=== PATIENT | male | born 1970 | race Caucasian/White ===

== ENCOUNTER 2020-01-26 11:19 | Emergency (ER) | payer MEDICAID, SELFPAY ==
[2020-01-26 11:33] VITALS: BP 137/108; PULSE 80; RESP 18; TEMP 36.4; O2SAT 100; BMI 25.8
--- NOTE | 2020-01-26 12:19 | ED_ITS ---
HPI - Abdominal Pain General: Chief Complaint: Abdominal Pain Stated Complaint: abd pain/bloating Time Seen by Provider: 01/26/20 11:53 History of Present Illness: HPI narrative: Patient is a 49-year-old male who comes to the ED with right upper quadrant abdominal pain nausea and vomiting. Patient has had his appendix removed but no other abdominal surgeries. Patient says symptoms started approximately 2 2 weeks ago. Symptoms were initially more mild and then in the last 4 days the more severe. He rates the abdominal pain an 8 out of 10. He describes it as a sharp pain in the right upper quadrant of the abdomen that radiates to his back. Patient is also had some nausea and vomiting and states for the last couple days he is only been able to drink fluids and eat things such as Jell-O. He says he has had the chills but denies any fever, dysuria, hematuria, blood in the stool, diarrhea, constipation. Associated Symptoms: Reports chills, nausea and vomiting; Denies constipation, diarrhea, dysuria, fever(s), hematochezia and hematuria Review of Systems Const: Reports: chills; Denies: fever(s) or fatigue Eyes: Denies: change in vision or eye discomfort ENMT: Denies: throat pain, odynophagia, nasal discharge or nasal congestion Card: Denies: chest pain, palpitations, edema, swelling of feet/ankles, dyspnea on exertion or orthopnea Resp: Denies: dyspnea, productive cough or non-productive cough GI: Reports: abdominal pain, nausea and vomiting; Denies: diarrhea, constipation or hematochezia : Denies: flank pain, difficulty urinating, dysuria or hematuria Musc: Denies: neck pain, back pain or extremity swelling Skin/Breast: Denies: rash or new lesions Neuro: Denies: headache(s), numbness in extremities or weakness in extremities Physical Exam Const: COMMON NORMALS: patient oriented x3 and alert GENERAL APPEARANCE: cooperative; not comfortable (Uncomfortable due to abdominal pain.) HENMT: COMMON NORMALS: normocephalic HEAD & SCALP: normocephalic MOUTH: moist mucous membranes abnormal (Mild signs of dehydration.) Details: parched THROAT: posterior oropharynx normal and uvula midline Eye: COMMON NORMALS: Equal, round and reactive pupils present PUPIL: Yes Equal, round and reactive pupils present Neck/C-Spine: COMMON NORMALS: supple GENERAL: Yes normal visual inspection Resp: COMMON NORMALS: normal respiratory effort, No retractions, No use of accessory muscles and clear to auscultation bilaterally AUSCULTATION: clear to auscultation bilaterally Cardio: COMMON NORMALS: regular rate, regular rhythm, S1 normal heart sound present, S2 normal heart sound present, No gallops present (Cardio), No clicks present (Cardio), No murmurs present (Cardio) and Peripheral pulses 2+ throughout RATE: regular rate RHYTHM: regular rhythm HEART SOUNDS: S1 normal heart sound present and S2 normal heart sound present PERIPHERAL PULSES: Peripheral pulses 2+ throughout GI: COMMON NORMALS: Soft to palpation and no masses INSPECTION: No abdominal distension AUSCULTATION: Yes Hypoactive bowel sounds present PALPATION: Yes Soft to palpation and Yes Tenderness to palpation present (GI) Details: RUQ (Moderate tenderness with positive Ocampo sign.) : COMMON NORMALS: Yes no CVA tenderness BLADDER/KIDNEY EXAM: Yes no CVA tenderness Back/Pelvis: COMMON NORMALS: no CVA tenderness Extremity: COMMON NORMALS: normal to inspection, capillary refill normal and no pedal edema Neuro: COMMON NORMALS: patient oriented x3 SENSORIUM/ORIENTATION: Yes alert GAIT: Yes Normal gait present Skin: COMMON NORMALS: no rashes or lesions noted GENERAL SKIN EXAM: no rashes or lesions noted and dry skin Course Vital Signs: Vital signs: Vital Signs Temperature 97.6 F 01/26/20 11:33 Pulse Rate 66 01/26/20 15:50 Respiratory Rate 18 01/26/20 15:50 Blood Pressure 144/103 01/26/20 15:50 Pulse Oximetry 92 01/26/20 15:50 MDM - Abdominal Pain MDM Narrative: Medical decision making narrative: Patient is a 49-year-old male who comes to the ED with right upper quadrant abdominal pain nausea and vomiting. Physical exam showed a positive Ocampo sign. Lipase 72, CBC unremarkable, and CMP showed an elevated creatinine level of 1.3. Urinalysis is unremarkable. Ultrasound of the gallbladder showed Moderately contracted gallbladder with no stones identified. Patient was given IV fluids, Zofran and morphine while here in the ED. Patient symptoms greatly improved. I placed order with case management for a referral to general surgery. Patient was diagnosed with biliary colic and discharged with a prescription for Zofran and a written prescription for [place]. He was told to have a clear liquid diet for the next 24 to 48 hours then slowly advance as tolerated. Return to the ED if symptoms worsen. Patient understood and agreed with plan. Lab Data: Attestation: I reviewed the patient's lab results. Labs: Lab Results 01/26/20 01/26/20 01/26/20 Range/Units 12:50 12:50 13:51 WBC 6.8 (4.0-10.0) 10^3/ uL RBC 5.17 (4.1-5.3) 10^6/u L Hgb 15.2 (11.7-16.6) g/dL Hct 46.7 (42.0-52.0) % MCV 90.3 (80-94) fL MCH 29.4 (28.0-34.0) pg MCHC 32.5 (30.0-36.0) g/dL RDW 13.1 (12.1-15.1) % Plt Count 416 H (130-400) 10^3/c mm MPV 9.3 (7.4-10.4) fL Neut % (Auto) 36.7 % Lymph % (Auto) 33.6 % [place] % (Auto) 11.3 % Eos % (Auto) 16.4 % Baso % (Auto) 1.9 % Neut # (Auto) 2.5 (1.8-7.7) 10^3/u L Lymph # (Auto) 2.3 (0.8-4.8) 10^3/u L [place] # (Auto) 0.8 (0.2-0.9) 10^3/u L Eos # (Auto) 1.1 H (0.0-0.8) 10^3/u L Baso # (Auto) 0.1 (0.0-0.1) 10^3/u L Nucleated RBC % (a uto) 0 % Nucleated RBCs # 0.0 /100WBC Sodium 138 (136-145) mmol/L Potassium 3.9 (3.5-5.1) mmol/L Chloride 98 (98-107) mmol/L Carbon Dioxide 28 (22-29) mmol/L Anion Gap 15.9 (5-19) BUN 18 (6-20) mg/dL Creatinine 1.3 H (0.7-1.2) mg/dL GFR Calculation 58.9 L (90-130) mL/min Glucose 97 (65-115) mg/dL Calculated Osmolal ity 282 L (285-295) mOsm/k g Calcium 9.7 (8.5-10.5) mg/dL Total Bilirubin 0.4 (0.15-1.2) mg/dL AST 32 (0-40) U/L ALT 31 (0-41) U/L Alkaline Phosphata se 82 (40-130) IU/L Total Protein 7.7 (6.6-8.7) g/dL Albumin 4.8 (3.5-5.2) g/dL Globulin 2.9 (1.3-4.6) g/dL Lipase 72 H (13-60) U/L Urine Color Yellow (Yellow) Urine Appearance Clear (CLEAR) Urine pH 5 (5-7) Ur Specific Gravit y 1.030 (1.005-1.030) Urine Protein Neg (Negative) Urine Glucose (UA) Norm (Normal) Urine Ketones Negative (Negative) Urine Blood Neg (Negative) Urine Nitrate Negative (Negative) Urine Bilirubin Neg (NEGATIVE) Urine Urobilinogen Norm (Negative) mg/dL Ur Leukocyte Heidi ase Negative (Negative) Urine RBC Rare (0-2) /hpf Urine WBC None (0-5) /hpf Ur Squamous Epith Cells None (0-5) Urine Bacteria Trace (NONE) Urine Mucus 1+ Imaging Data ^: US: Attestation: I personally reviewed and interpreted this imaging study as follows: Radiologist's impression: [place] [id number] Ultrasound Report Signed Patient: Sj Dhillon Unit #: [id number] : 1970 Age/Sex: 49 / M ADM Date: 01/26/20 Loc: ER Room/Bed: Attending Dr: Ordering Provider/Ordering MD: Galindo Restrepo Date of Service: 01/26/20 Procedure(s): US gall bladder 68013 Accession Number(s): [id number] Report Number: [id number] WS: [id number] RIGHT UPPER QUADRANT ULTRASOUND HISTORY: RUQ pain with n/v COMPARISON: None available. Liver: 15.5 cm in length. Liver is normal size. Slight nodularity along the liver surface. No bile duct dilatation. Gallbladder: Moderately contracted gallbladder. No stones are identified. CBD: 0.5 cm Pancreas: Normal size and echogenicity. Right kidney: 10.2 cm in length. Normal echogenicity with no mass or hydronephrosis. Aorta and IVC: Unremarkable. No ascites. US/US gall bladder [id number] IMPRESSION: 1. Moderately contracted gallbladder with no stones identified. 2. Normal size liver. Surface of the liver suggests possibility of early cirrhosis. Dictated By: Maru Quinteros DO Signed By: Maru Quinteros DO Signed Date/Time: 01/26/201338 DD/ 133 Discharge Plan Discharge Patient Disposition: Home, Self-Care Clinical Impression: Biliary colic Condition: Stable Prescriptions: New Zofran 4 mg tablet 4 mg PO Q8H Qty: 20 RF: 0 No Action Tylenol Extra Strength 500 mg Tablet 1,000 mg PO PRN RF: 0 Tagamet HB 200 mg Tablet 200 mg PO DAILY RF: 0 Pepto-Bismol 262 mg Tablet,Chewable 2 tab PO PRN RF: 0 Discharge Orders: Discharge Order (Routine); Ordered 01/26/20 Ordered By: Galindo Restrepo Referrals: Chinmay Chanel FNP [Primary Care Provider] - Discharge Diet: Advance as tolerated and Clear Liquid Patient Instructions: Biliary Colic (ED) Activity Restrictions/Additional Instructions: Follow-up with medical provider as directed. Case management or general surgery clinic should be contacting you in the next several days to schedule an appointment. Remember to continue clear liquid diet for the next 24 to 48 hours and then slowly advance as tolerated. I am sending you home with a prescription for Zofran and hydrocodone for breakout pain. You can also take ibuprofen or Tylenol for pain daily as well. Take medications as prescribed. Drink plenty of fluids and stay hydrated. Return to the ER or your medical provider if condition worsens. Please read and understand discharge instructions. If any questions, please ask. Discharge Date/Time: 01/26/20 15:51 Coding Level of Care Code ED Carrier Operator for González Fwd Exam Comprehensive
[2020-01-26] MEDS: ondansetron 2 mg/ML SDV 2 mL 4 MG IVP (12:42)
[2020-01-26] MEDS: sodium chloride 0.9% 1,000 ML 999 ML IV (12:43)
--- NOTE | 2020-01-26 13:01 | US_ITS ---
WS: [id number] RIGHT UPPER QUADRANT ULTRASOUND HISTORY: RUQ pain with n/v COMPARISON: None available. Liver: 15.5 cm in length. Liver is normal size. Slight nodularity along the liver surface. No bile du ct dilatation. Gallbladder: Moderately contracted gallbladder. No stones are identified. CBD: 0.5 cm Pancreas: Normal size and echogenicity. Right kidney: 10.2 cm in length. Normal echogenicity with no mass or hydronephrosis. Aorta and IVC: Unremarkable. No ascites. US/US gall bladder [id number] IMPRESSION: 1. Moderately contracted gallbladder with no stones identified. 2. Normal size liver. Surface of the liver suggests possibility of early cirrh osis.
[2020-01-26 13:03] LABS: Basophils # 0.1 10^3/uL (0.0-0.1); Basophils % 1.9 %; Eosinophils # 1.1 10^3/uL (0.0-0.8); Eosinophils % 16.4 %; Hematocrit 46.7 % (42.0-52.0); Hemoglobin 15.2 g/dL (11.7-16.6); Lymphocytes # 2.3 10^3/uL (0.8-4.8); Lymphocytes % 33.6 %; Mean Corpuscular HGB Conc 32.5 g/dL (30.0-36.0); Mean Corpuscular Hemoglobin 29.4 pg (28.0-34.0); Mean Corpuscular Volume 90.3 fL (80-94); Mean Platelet Volume 9.3 fL (7.4-10.4); Monocytes # 0.8 10^3/uL (0.2-0.9); Monocytes % 11.3 %; Neutrophils # 2.5 10^3/uL (1.8-7.7); Neutrophils % 36.7 %; Nucleated Red Blood Cells % 0 %; Platelet Count 416 10^3/cmm (130-400); Red Blood Count 5.17 10^6/uL (4.1-5.3); Red Cell Distribution Width 13.1 % (12.1-15.1); White Blood Count 6.8 10^3/uL (4.0-10.0)
[2020-01-26 13:23] LABS: Alanine Aminotransferase 31 U/L (0-41); Albumin Level 4.8 g/dL (3.5-5.2); Alkaline Phosphatase 82 IU/L (40-130); Anion Gap 15.9 (5-19); Aspartate Amino Transferase 32 U/L (0-40); Blood Urea Nitrogen 18 mg/dL (6-20); Calcium 9.7 mg/dL (8.5-10.5); Carbon Dioxide 28 mmol/L (22-29); Chloride 98 mmol/L (98-107); Globulin 2.9 g/dL (1.3-4.6); Glomerular Filtration Rate 58.9 mL/min (90-130); Glucose 97 mg/dL (65-115); Lipase 72 U/L (13-60); Osmolality Calculated 282 mOsm/kg (285-295); Potassium 3.9 mmol/L (3.5-5.1); Sodium 138 mmol/L (136-145); Total Bilirubin 0.4 mg/dL (0.15-1.2); Total Protein 7.7 g/dL (6.6-8.7)
[2020-01-26 13:57] VITALS: RESP 12
[2020-01-26] MEDS: morphine 4 mg/mL SDV 1 mL IVP (13:57)
[2020-01-26 14:02] VITALS: BP 132/98; PULSE 84; O2SAT 100
[2020-01-26 14:06] LABS: Add Urine Culture? No; Bacteria Urine TRACE; Bilirubin Urine Neg (NEGATIVE); Blood Urine Neg (Negative); Glucose Urine UA Norm (Normal); Ketones Urine Negative (Negative); Leukocyte Esterase Urine Negative (Negative); Nitrate Urine Negative (Negative); Protein Urine Neg (Negative); RBC Urine RARE /hpf (0-2); Urine Appearance Clear (CLEAR); Urine Color Yellow (Yellow); Urobilinogen Urine Norm (Negative); pH Urine 5 (5-7)
[2020-01-26 14:07] LABS: Mucus Urine 1+
[2020-01-26 15:50] VITALS: BP 144/103; PULSE 66; RESP 18; O2SAT 92
--- NOTE | 2020-01-29 11:08 | DCPLANNER ---
manager plan had message to schedule a follow up appointment for patient with general surgery. manager plan called [facility], spoke with Sarai, gave clinic patients information. manager plan was told that patients information would be printed and reviewed. Clinic will call patient with appointment information.
--- NOTE | 2020-01-30 09:01 | DCPLANNER ---
Patient has a follow up appointment scheduled for Wednesday, February 02, 2020 at 1:15 with Practicing Dermatologist clinic. Clinic will call patient with appointment information.
--- NOTE | 2020-02-06 11:44 | DCPLANNER ---
Patient did attend follow up appointment scheduled for 02.02.20 with [facility].
== END 2020-01-26 15:51 | disposition home or self-care (01) ==
PROVIDERS: Emergency Provider Physician Assistant; Family Provider Nurse Practitioner Family; PCP Nurse Practitioner Family
DX: K80.50 Calculus of bile duct without cholangitis or cholecystitis without obstruction (principal)
CPT/HCPCS: 12345; 36415; 76705; 80053; 81001; 83690; 85025; 87040; 96361; 96374; 96375; 99283; 99284; J2270; J2405; J7030

== ENCOUNTER 2020-02-01 19:13 | Emergency (ER) | payer MEDICAID, SELFPAY ==
[2020-02-01] VITALS (7 sets, daily range): BP systolic 143–151; BP diastolic 97–109; PULSE 66–75; RESP 14–21; TEMP 36.3; O2SAT 97–100; BMI 25.1
--- NOTE | 2020-02-01 19:38 | XRR_ITS ---
PROCEDURE INFORMATION: Exam: XR Chest, 2 Views Exam date and time: 02/01/2020 8:19 PM Age: 49 years old Clinical indication: Dyspnea TECHNIQUE: Imaging protocol: XR of the chest Views: 2 views. COMPARISON: CR Chest 1 [place] [id number] 03/23/2017 10:02 AM FINDINGS: Lungs: No acute airspace disease. Pleural space: No pleural effusion. Heart/Mediastinum: No cardiomegaly. Bones/joints: Mild degenerative change. XR/XR chest 2V* [id number] IMPRESSION: No acute airspace or pleural disease.
--- NOTE | 2020-02-01 21:44 | CTR_ITS ---
PROCEDURE INFORMATION: Exam: CT Abdomen And Pelvis With Contrast Exam date and time: 02/01/2020 9:57 PM Age: 49 years old Clinical indication: Abdominal pain; Generalized; Prior surgery; Surgery type: Appy; Additional info: Abd pain TECHNIQUE: Imaging protocol: Computed tomography of the abdomen and pelvis with intravenous contrast. Radiation optimization: All CT scans at this facility use at least one of these dose optimization techniques: automated exposure control; mA and/or kV adjustment per patient size (includes targeted exams where dose is matched to clinical indication); or iterative reconstruction. Contrast material: VISI; Contrast volume: 95 ml; Contrast route: INTRAVENOUS (IV); COMPARISON: US gall bladder [id number] 01/26/2020 1:26 PM RADIATION DOSE METRICS: Total DLP (mGy-cm): 842.2 FINDINGS: Lungs: The lung bases are clear. Mediastinal space: Small hiatal hernia. Liver: Unremarkable. Gallbladder and bile ducts: No definite gallbladder abnormality by CT. No biliary tree dilation. Pancreas: Unremarkable. Spleen: Unremarkable. Adrenals: Unremarkable. The was cut the gap Kidneys and ureters: Small right lower pole intrarenal calculus. No hydronephrosis of either kidney. No visible ureteral calculus. Stomach and bowel: Several small bowel loops are fluid-filled and borderline prominent in size, however the overall appearance is not suggestive of significant small bowel obstruction at this time. This appearance could be secondary to some form of gastroenteritis. Please correlate clinically. If there is clinical suspicion for small bowel obstruction, follow-up may be helpful to exclude progression. There are no CT findings to strongly suggest diverticulitis. Appendix: Reportedly, there has been prior appendectomy. Intraperitoneal space: No free air, ascites, or significant bowel distention. Vasculature: No evidence for abdominal aortic aneurysm. Lymph nodes: No significant retroperitoneal adenopathy. Bladder: Unremarkable as visualized. Reproductive: Essentially unremarkable for age. Bones/joints: No significant acute finding. Soft tissues: Small left inguinal region hernia, containing only fat. CT/CT abdomen pelvis w con* [id number] IMPRESSION: 1. Several small bowel loops are fluid-filled and borderline prominent in size, see above discussion. This appearance could be secondary to some form of gastroenteritis. 2. No free air or significant bowel distention. 3. Small right lower pole intrarenal calculus. No hydronephrosis or visible ureteral calculus. 4. Other findings discussed above. Radiation Dose CTDIVOL = (mGy): DLP = 842.2 (mGy-cm)
--- NOTE | 2020-02-01 21:51 | ECG_ITS ---
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 Measurements Intervals [place] Rate: 57 P: 58 MI: 173 QRS: 31 QRSD: 98 T: 41 QT: 460 QTc: 449 Interpretive Statements SINUS BRADYCARDIA Compared to ECG 08/04/2016 18:45:37 Sinus rhythm no longer present Electronically Signed On 02-02-2020 19:04:08 CDT by Alison Dumont M.D. [id number]
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
[2020-02-01 22:13] LABS: Basophils # 0.1 10^3/uL (0.0-0.1); Basophils % 0.7 %; Eosinophils # 0.8 10^3/uL (0.0-0.8); Eosinophils % 8.7 %; Hematocrit 42.5 % (42.0-52.0); Hemoglobin 13.9 g/dL (11.7-16.6); Lymphocytes # 1.5 10^3/uL (0.8-4.8); Lymphocytes % 16.8 %; Mean Corpuscular HGB Conc 32.7 g/dL (30.0-36.0); Mean Corpuscular Hemoglobin 29.5 pg (28.0-34.0); Mean Corpuscular Volume 90.2 fL (80-94); Mean Platelet Volume 9.1 fL (7.4-10.4); Neutrophils # 5.58 10^3/uL (1.8-7.7); Neutrophils % 62.6 %; Nucleated Red Blood Cells % 0 %; Platelet Count 327 10^3/cmm (130-400); Red Blood Count 4.71 10^6/uL (4.1-5.3); Red Cell Distribution Width 12.7 % (12.1-15.1); White Blood Count 8.9 10^3/uL (4.0-10.0)
[2020-02-01 22:38] LABS: Alanine Aminotransferase 34 U/L (0-41); Albumin Level 4.3 g/dL (3.5-5.2); Alkaline Phosphatase 75 IU/L (40-130); Anion Gap 11.2 (5-19); Aspartate Amino Transferase 32 U/L (0-40); Blood Urea Nitrogen 16 mg/dL (6-20); Calcium 9.4 mg/dL (8.5-10.5); Carbon Dioxide 31 mmol/L (22-29); Chloride 98 mmol/L (98-107); Creatine Phosphokinase 153 U/L (39-308); Globulin 2.5 g/dL (1.3-4.6); Glomerular Filtration Rate 71.4 mL/min (90-130); Glucose 98 mg/dL (65-115); Osmolality Calculated 278 mOsm/kg (285-295); Potassium 4.2 mmol/L (3.5-5.1); Sodium 136 mmol/L (136-145); Total Bilirubin 0.3 mg/dL (0.15-1.2); Total Protein 6.8 g/dL (6.6-8.7)
[2020-02-01] MEDS: iodixanol 320 mg/mL 100mL Btl 95 ML IV (22:54)
[2020-02-01] MEDS: ipratropium-albuterol 3 mL Neb INHALATION ×2 (23:00→23:17)
[2020-02-01 23:35] LABS: Troponin(5th) Baseline 12 ng/L (0-15)
[2020-02-01] MEDS: morphine 4 mg/mL SDV 1 mL IVP (23:51)
[2020-02-01] MEDS: ondansetron 2 mg/ML SDV 2 mL 4 MG IVP (23:51)
[2020-02-02 00:31] VITALS: BP 148/73; PULSE 72; RESP 16; O2SAT 96
[2020-02-02 01:18] LABS: Troponin 5 2HR 10.94 ng/L (0-15)
[2020-02-02 01:28] LABS: Troponin 5 2HR Delta -1.06 ABS# (0-10)
== END 2020-02-02 00:32 | disposition home or self-care (01) ==
PROVIDERS: Family Medicine; Emergency Provider Emergency Medicine
DX: R10.84 Generalized abdominal pain (principal); Z86.73 Personal history of transient ischemic attack (TIA), and cerebral infarction without residual deficits; I10 Essential (primary) hypertension; F17.210 Nicotine dependence, cigarettes, uncomplicated
CPT/HCPCS: 12345; 71046; 74177; 80053; 82550; 84484; 85025; 93005; 94640; 96374; 96375; 99282; 99285; J2270; J2405; Q9967

== ENCOUNTER 2020-02-14 06:53 | Outpatient (CLI) | payer MEDICAID, SELFPAY ==
--- NOTE | 2020-02-14 08:00 | NM_ITS ---
WS: [id number] NUCLEAR MEDICINE HIDA SCAN WITH GALLBLADDER EJECTION FRACTION HISTORY: abdominal pain COMPARISON: 01/26/2020 TECHNIQUE: The patient was intravenously injected with 8.1 mCi of TC99m Mebrofenin. Immediate imaging over the right upper quadrant was followed by 5 minute image and additional images for a total of 60 minutes. Normal uptake of radiotracer throughout the liver. Activity identified in the gallbladder at 10 minutes and well distended by 60 minutes. Activity in the proximal small bowel was not identified at 60 minutes. Good washout of the radiotrace r from the liver by 60 minutes. The patient then drank 8 ounces of Ensure Plus. Ejection fraction at 60 minutes was 69%. Normal GB ej ection fraction is 35-75%. Post fatty meal symptoms: None. NM/NM hepatobiliary w phar* [id number] IMPRESSION: 1. Normal HIDA scan. 2. Normal gallbladder ejection fraction.
== END 2020-02-14 06:54 | disposition home or self-care (01) ==
PROVIDERS: Visit Provider Surgery
DX: R10.9 Unspecified abdominal pain (principal)
CPT/HCPCS: 78227; A9537

== ENCOUNTER → 2020-03-05 16:00 | Outpatient (BNVA) | payer MEDICAID, SELFPAY | PROVIDERS: Visit Provider Family Medicine | DX: F32.9 Major depressive disorder, single episode, unspecified (principal); R10.13 Epigastric pain; I10 Essential (primary) hypertension; Z13.6 Encounter for screening for cardiovascular disorders; F33.1 Major depressive disorder, recurrent, moderate; R10.31 Right lower quadrant pain; Z13.220 Encounter for screening for lipoid disorders; R07.81 Pleurodynia | CPT/HCPCS: 80053; 80061; 83690 ==

== ENCOUNTER 2020-03-25 09:20 | Day surgery (SDC) | payer MEDICAID, SELFPAY ==
[2020-03-22 12:47] VITALS: BMI 30.1
[2020-03-25] VITALS (8 sets, daily range): BP systolic 116–139; BP diastolic 72–91; PULSE 53–71; RESP 13–18; TEMP 36.2–36.3; O2SAT 96–100
[2020-03-25] MEDS: sodium chloride 0.9% 1,000 ML 30 ML IV (09:37)
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
--- NOTE | 2020-03-25 10:14 | W.PM.OPSUD ---
Surgery/Procedure H&P Update DATE OF PROCEDURE: March 25, 2020 DATE H&P PERFORMED: 03/19/20 H&P UPDATE INFORMATION: I have reviewed H&P completed within last 30 days, I have examined patient prior to procedure and No changes to prior documentation PREOP DIAGNOSIS: Left inguinal hernia PLANNED PROCEDURE: Operation Date: 03/25/20 10:40 Proposed Procedures p Laparoscopic Inguinal Hernia Repair w/Mesh 25625 K40.90(Left) - Miguel Santoyo MD
[2020-03-25] MEDS: vancomycin 1,000 MG in sodium chloride 0.9% 250 ML 250 MG IV (10:54)
--- NOTE | 2020-03-25 12:42 | SUR.PHASEI ---
1242- ORAL AIRWAY OUT, SIMPLE MASK AT 10LPM. SAT 100%
--- NOTE | 2020-03-25 12:56 | P.OP_ITS ---
Operative Report Date of procedure: March 25, 2020 Pre-op Diagnosis: Left inguinal hernia Post-op Diagnosis: Lipoma of the spermatic cord Indirect left inguinal hernia Procedure Done: Laparoscopic total extraperitoneal repair of left indirect inguinal hernia Excision of lipoma of the spermatic cord Pathology: none sent Surgeon: Miguel Santoyo Anesthesia: MAC Condition: stable Disposition: PACU Procedure: The patient was taken to the operating room. After IV antibiotic was administered, the abdomen was prepped and draped in a sterile manner. Using a 15 blade, a 1.0 cm transverse incision was made infraumbilically on the left side. Subcutaneous tissue was divided using electrocautery and the anterior rectus sheath divided using an 11 blade. The rectus muscle was retracted laterally and the extraperitoneal space identified. A 11 mm port was placed and 12 mm of pneumoperitoneum was created. A 10 mm 30? scope was introduced and the retrorectus space was opened using the camera up to the pubic symphysis and 5 mm ports were placed in the midline, one 2-fingerbreadths above the pubic symphysis and the other midway between these two ports under direct visualization. Blunt dissection was carried out to open up the tissue in the midline and to the pubic symphysis, which was identified. The dissection was then carried laterally where the iliopubic tract was identified. There was no femoral, obturator or direct hernia noted. The inferior epigastric artery was identified and dissection was carried posterior to it and laterally, the space was opened up to the level of the umbilicus superior to the anterior superior iliac spine. I then proceeded to dissect out the spermatic cord and the indirect hernial sac was reduced . A lipoma of the spermatic cord was excised and reduced into the preperitoneal space. Medium Surgimax 3D was rolled and introduced through the 10 mm port and then rolled laterally and apposed well against the abdominal wall to cover the myopectineal orifice completely. 10 Cc of 0.5% Marcaine was infilt rated into the preperitoneal space. The extraperitoneal space was desufflated under direct visualization to ensure no slippage of hernial sac under the mesh. All ports were removed, the anterior rectus fascia at the infraumbilical port closed using figure of eight 0 Vicryl sutures, subcutaneous tissue approximated using 3-0 Vicryl sutures and skin at all three port sites were closed using running subcuticular 4-0 Monocryl sutures and Dermabond. 10 mL of 0.5% Marcaine was infiltrated at the port sites. The patient was stable throughout the procedure.
--- NOTE | 2020-03-25 13:00 | ANE.PACU2 ---
Inpatient post-anesthesia follow up: Airway intact: Yes Vital signs: Temperature 97.2 F Pulse Rate 62 Respiratory Rate 18 Blood Pressure 124/89 Pulse Oximetry 98 Oxygen Delivery Me thod Room Air Oxygen Flow Rate 10 Fraction of Inspir ed Oxygen Hydration adequate: Yes Nausea and vomiting: No Pain level: 2 Mental status: Baseline
== END 2020-03-25 13:25 | disposition home or self-care (01) ==
PROVIDERS: PCP Family Medicine; Visit Provider Surgery
PROC: (CPT 49650; principal; 2020-03-25 10:40)
DX: K40.90 Unilateral inguinal hernia, without obstruction or gangrene, not specified as recurrent (principal); D17.6 Benign lipomatous neoplasm of spermatic cord; J45.909 Unspecified asthma, uncomplicated; I10 Essential (primary) hypertension; F17.210 Nicotine dependence, cigarettes, uncomplicated
CPT/HCPCS: 49650; 12345; J0131; J2370; J2405; J2704; J2710; J3010; J3370; J3490; J7030; J7050

== ENCOUNTER 2020-07-08 06:00 | Outpatient (RCR) | payer MEDICAID, SELFPAY | END 2020-07-25 23:59 | disposition home or self-care (01) | LOC: WPT 06:00 | PROVIDERS: PCP Family Medicine; Referring Provider Family Medicine; Visit Provider Family Medicine | DX: G89.29 Other chronic pain (principal); M54.9 Dorsalgia, unspecified; M54.12 Radiculopathy, cervical region | CPT/HCPCS: 97110; 97161 ==

== ENCOUNTER → 2021-01-20 17:48 | Outpatient (BNVA) | payer MEDICAID, SELFPAY | PROVIDERS: PCP Family Medicine; Visit Provider Family Medicine | DX: M54.12 Radiculopathy, cervical region (principal); I10 Essential (primary) hypertension; R10.13 Epigastric pain; M62.838 Other muscle spasm; J44.9 Chronic obstructive pulmonary disease, unspecified; E78.2 Mixed hyperlipidemia; F32.9 Major depressive disorder, single episode, unspecified | CPT/HCPCS: 80053; 80061; 83735; 85025 ==

== ENCOUNTER 2021-03-04 14:16 | Outpatient (CLI) | payer MEDICAID, SELFPAY ==
--- NOTE | 2021-03-04 14:40 | CT_ITS ---
WS: [id number] CT HEAD NONCONTRAST HISTORY: G44.52 - New daily persistent headache (NDPH) TECHNIQUE: Contiguous axial imaging performed through the brain in 2.5 mm imaging. Bone and soft tiss ue windows. All CT scans at [facility] use at least one of these dose optimization techniq ues: automated exposure control; mA and/or kV adjustment per patient size (includes targeted exams wh ere dose is matched to clinical indication); or iterative reconstruction. DLP: 992.04 mGycm COMPARISON: 08/04/2016 No acute intracranial hemorrhage, midline shift or mass effect. No atrophy or prior infarcts or herniation. Ventricles: Normal size with no hydrocephalus. Cerebellar tonsils are low-lying with no Chiari malformation. Paranasal sinuses: Mild mucoperiosteal thickening. No air-fluid levels. Mastoid air cells: Sclerotic changes in the RIGHT mastoid air cells from prior mastoiditis. No interv al change since 08/04/2016. Calvarium and scalp: Skull is intact with no soft tissue edema or swelling. CT/CT head wo con* [id number] IMPRESSION: 1. No acute intracranial hemorrhage or edema. 2. Mild ectopia cerebellar tonsils as has been described before. 3. No mass effect or hydrocephalus.
== END 2021-03-04 14:17 | disposition home or self-care (01) ==
PROVIDERS: PCP Family Medicine; Visit Provider Family Medicine
DX: H53.9 Unspecified visual disturbance (principal); G44.52 New daily persistent headache (NDPH); Q04.8 Other specified congenital malformations of brain
CPT/HCPCS: 70450

== ENCOUNTER → 2021-07-10 10:34 | Outpatient (BNVA) | payer MEDICAID, SELFPAY | PROVIDERS: PCP Family Medicine; Visit Provider Family Medicine | DX: I10 Essential (primary) hypertension (principal); S41.112A Laceration without foreign body of left upper arm, initial encounter; M54.12 Radiculopathy, cervical region; Z22.322 Carrier or suspected carrier of Methicillin resistant Staphylococcus aureus; E78.2 Mixed hyperlipidemia; F32.9 Major depressive disorder, single episode, unspecified; R10.13 Epigastric pain; N20.0 Calculus of kidney; L02.415 Cutaneous abscess of right lower limb; B37.2 Candidiasis of skin and nail; K29.30 Chronic superficial gastritis without bleeding; S41.112D Laceration without foreign body of left upper arm, subsequent encounter; Z91.19 Patient's noncompliance with other medical treatment and regimen; X58.XXXA Exposure to other specified factors, initial encounter | CPT/HCPCS: 80053; 80061; 85025 ==

== ENCOUNTER 2021-09-20 17:23 | Emergency (ER) | payer MEDICAID, SELFPAY ==
[2021-09-20 17:29] VITALS: BP 153/101; PULSE 86; RESP 16; TEMP 36.5; O2SAT 98; BMI 28.7
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
[2021-09-20] MEDS: tetracaine 0.5% Op Soln 4 mL Btl 1 DROP EYE-RIGHT (18:01)
== END 2021-09-20 18:15 | disposition home or self-care (01) ==
PROVIDERS: Emergency Provider Nurse Practitioner Family; PCP Family Medicine
DX: T15.91XA Foreign body on external eye, part unspecified, right eye, initial encounter (principal); Z86.73 Personal history of transient ischemic attack (TIA), and cerebral infarction without residual deficits; E78.2 Mixed hyperlipidemia; I10 Essential (primary) hypertension; F17.220 Nicotine dependence, chewing tobacco, uncomplicated; W22.8XXA Striking against or struck by other objects, initial encounter
CPT/HCPCS: 99282

== ENCOUNTER 2022-06-26 16:52 | Emergency (ER) | payer MEDICAID, SELFPAY ==
[2022-06-26 16:58] VITALS: BP 113/65; PULSE 72; RESP 16; TEMP 36.4; O2SAT 97; BMI 28.8
--- NOTE | 2022-06-26 17:27 | XRR_ITS ---
PROCEDURE INFORMATION: Exam: XR Chest Exam date and time: 06/26/2022 5:32 PM Age: 52 years old Clinical indication: Cough and fever; Smoker's cough; Additional info: Cough, fever TECHNIQUE: Imaging protocol: Radiologic exam of the chest. Views: 2 views. COMPARISON: CR XR chest 2V* [id number] 02/01/2020 8:15 PM FINDINGS: Lungs: Unremarkable. No consolidation. Pleural spaces: Unremarkable. No pleural effusion. No pneumothorax. Heart/Mediastinum: Unremarkable. No cardiomegaly. Bones/joints: Unremarkable. XR/XR chest 2V* [id number] IMPRESSION: No acute findings.
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
[2022-06-26 18:30] VITALS: PULSE 72; RESP 16; O2SAT 98
[2022-06-26] MEDS: ipratropium-albuterol 3 mL Neb INHALATION (18:30)
[2022-06-26 18:33] VITALS: BP 115/75; PULSE 71; PULSE 78; RESP 18; O2SAT 95
[2022-06-26 18:39] LABS: Basophils % 0.2 %; Hematocrit 42.2 % (42.0-52.0); Hemoglobin 13.4 g/dL (11.7-16.6); Lymphocytes # 0.7 10^3/uL (0.8-4.8); Lymphocytes % 15.5 %; Mean Corpuscular HGB Conc 31.8 g/dL (30.0-36.0); Mean Corpuscular Volume 91.3 fl (80-94); Mean Platelet Volume 9.5 fL (7.4-10.4); Monocytes # 0.2 10^3/uL (0.2-0.9); Monocytes % 5.2 %; Neutrophils # 3.36 10^3/uL (1.8-7.7); Neutrophils % 78.6 %; Nucleated Red Blood Cells % 0 %; Platelet Count 297 10^3/cmm (130-400); Red Blood Count 4.62 10^6/uL (4.1-5.3); Red Cell Distribution Width 13.2 % (12.1-15.1); White Blood Count 4.3 10^3/uL (4.0-10.0)
[2022-06-26 19:01] LABS: Alanine Aminotransferase 106 U/L (0-41); Albumin Level 3.5 g/dL (3.5-5.2); Alkaline Phosphatase 119 U/L (40-130); Anion Gap 13.8 (5-19); Aspartate Amino Transferase 77 U/L (0-40); Blood Urea Nitrogen 12 mg/dL (6-20); Calcium 8.7 mg/dL (8.5-10.5); Carbon Dioxide 30 mmol/L (22-29); Chloride 102 mmol/L (98-107); Globulin 3.2 g/dL (1.3-4.6); Glomerular Filtration Rate 78.8 mL/min (90-130); Glucose 119 mg/dL (65-115); Osmolality Calculated 293 mOsm/kg (285-295); Potassium 4.8 mmol/L (3.5-5.1); Sodium 141 mmol/L (136-145); Total Bilirubin 0.2 mg/dL (0.15-1.2); Total Protein 6.7 g/dL (6.6-8.7)
[2022-06-26 19:04] LABS: Influenza A by IFA Positive (Negative); Influenza B by IFA Negative (Negative)
[2022-06-26 19:20] LABS: SARS Covid-2 Antigen negative (Negative)
[2022-06-26] MEDS: sodium chloride 0.9% 1,000 ML 999 ML IV (19:29)
[2022-06-26 20:27] VITALS: BP 125/86; PULSE 75; RESP 20; O2SAT 99
== END 2022-06-26 20:21 | disposition home or self-care (01) ==
PROVIDERS: Nurse Practitioner Family; Emergency Provider Emergency Medicine; PCP Family Medicine
DX: J11.1 Influenza due to unidentified influenza virus with other respiratory manifestations (principal); J40 Bronchitis, not specified as acute or chronic; Z20.822 Contact with and (suspected) exposure to COVID-19; Z86.73 Personal history of transient ischemic attack (TIA), and cerebral infarction without residual deficits; E78.2 Mixed hyperlipidemia; I10 Essential (primary) hypertension; F17.220 Nicotine dependence, chewing tobacco, uncomplicated
CPT/HCPCS: 71046; 80053; 85025; 87426; 87804; 94640; 96361; 96374; 99284; J2930; J7030

== ENCOUNTER 2022-11-10 14:27 | Emergency (ER) | payer MEDICAID, SELFPAY ==
[2022-11-10 14:34] VITALS: BP 165/91; PULSE 85; RESP 16; TEMP 36.4; O2SAT 99
--- NOTE | 2022-11-10 15:20 | XR_ITS ---
WS: [id number] Right forearm, AP and lateral views, 11/10/2022 Clinical Data: forearm pain Comparison: None. Findings: No fractures or dislocations are seen. There is a 0.7 cm radiopaque foreign body in the subcutaneous soft tissue in the medial aspect of the junction of the proximal and middle thirds of the forearm. Th e visualized right wrist and elbow show no obvious abnormalities. There are clips in the medial aspect of the subcutaneous tissue of the distal right arm XR/XR forearm RT 2V [id number] Impression: Probable foreign body in medial aspect of proximal third of right forearm.
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
[2022-11-10] MEDS: ondansetron 4 MG Tablet PO (15:33)
[2022-11-10] MEDS: HYDROcodone-acetaminophen 7.5-325 mg Tablet 1 TAB PO (15:33)
--- NOTE | 2022-11-11 08:40 | DCPLANNER ---
Addendum entered by Nga Meza 11/25/22 11:18: Patient had a follow up appointment scheduled with ortho - patient did attend appointment. Addendum entered by Nga Meza 11/20/22 10:15: Patient has a follow up appointment scheduled for Wednesday, November 23, 2022 at 9:[address] Restrepo at ortho. Addendum entered by Nga Meza 11/13/22 07:50: dental manager received the following message from the ortho clinic regarding follow up appointment: Attempted to contact patient - was unable to get ahold of him, I called twice and both times I got a message saying This number is not available. I will be mailing him a letter. When patient calls back he is to be scheduled on November [address] Restrepo! Original Note: dental manager had message to schedule a follow up appointment for patient with ortho. dental manager sent patients information to the front office staff at ortho. Patients information will be printed and reviewed. Clinic will call patient with appointment information.
== END 2022-11-10 16:05 | disposition home or self-care (01) ==
PROVIDERS: Emergency Provider Physician Assistant; PCP Family Medicine
DX: M79.5 Residual foreign body in soft tissue (principal); Z86.73 Personal history of transient ischemic attack (TIA), and cerebral infarction without residual deficits; E78.2 Mixed hyperlipidemia; I10 Essential (primary) hypertension; F17.220 Nicotine dependence, chewing tobacco, uncomplicated
CPT/HCPCS: 73090; 99283; Q0162

== ENCOUNTER → 2022-11-23 09:14 | Outpatient (BNVA) | payer MEDICAID, SELFPAY | PROVIDERS: PCP Family Medicine; Referring Provider Physician Assistant; Visit Provider Student in an Organized Health Care Education/Training Program | DX: M79.631 Pain in right forearm (principal); M79.5 Residual foreign body in soft tissue | CPT/HCPCS: 73090; 99204 ==

== ENCOUNTER 2022-12-02 05:42 | Day surgery (SDC) | payer MEDICAID, SELFPAY ==
[2022-12-01 12:19] VITALS: BMI 26.6
[2022-12-02 06:09] VITALS: BP 141/100; PULSE 93; RESP 18; TEMP 37; O2SAT 100
[2022-12-02] MEDS: sodium chloride 0.9% 1,000 ML 30 ML IV (06:31)
[2022-12-02] MEDS: ketorolac 30 mg/mL INJ IVP (06:33)
[2022-12-02] MEDS: acetaminophen 1,000 MG/100 ML PIGGYBACK 400 MG IV (06:33)
[2022-12-02 06:47] LABS: Blood Urea Nitrogen 28 mg/dL (6-20); Calcium 9.3 mg/dL (8.5-10.5); Carbon Dioxide 27 mmol/L (22-29); Chloride 102 mmol/L (98-107); Glomerular Filtration Rate 58.2 mL/min (90-130); Glucose 94 mg/dL (65-115); Osmolality Calculated 295 mOsm/kg (285-295); Sodium 140 mmol/L (136-145)
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
[2022-12-02 06:50] LABS: Anion Gap 15.4 (5-19); Potassium 4.4 mmol/L (3.5-5.1)
--- NOTE | 2022-12-02 06:58 | W.PM.OPSUD ---
Surgery/Procedure H&P Update DATE OF PROCEDURE: December 02, 2022 DATE H&P PERFORMED: 11/23/22 CHANGES TO PREVIOUS DOCUMENTATION: None. No changes from office visit. PREOP DIAGNOSIS: Right forearm foreign bodies PRIMARY INDICATION FOR PROCEDURE: Right forearm foreign bodies PLANNED PROCEDURE: Operation Date: 12/02/22 07:00 Proposed Procedures p Right forearm foreign bodies removal:[id number], S50.?851A(Right) - Cj Restrepo DO
[2022-12-02] MEDS: clindamycin 600 MG/50 ML PREMIX 100 MG IV (07:01)
[2022-12-02] MEDS: lidocaine 1% INJ 10 mL (per mL) INJECTION (07:34)
[2022-12-02 07:58] VITALS: BP 143/76; PULSE 77; RESP 14; TEMP 36.1; O2SAT 95
[2022-12-02 08:00] VITALS: BP 132/81; PULSE 85; RESP 16; O2SAT 98
[2022-12-02 08:05] VITALS: BP 163/96; PULSE 83; RESP 15; O2SAT 99
[2022-12-02 08:11] VITALS: BP 162/74; PULSE 81; RESP 17; TEMP 36.4; O2SAT 99
[2022-12-02 08:40] VITALS: BP 138/98; PULSE 72; RESP 18; TEMP 36.6; O2SAT 100
--- NOTE | 2022-12-02 09:27 | PM.OP2 ---
Brief Operative Note Date of procedure: 12/02/22 Pre-op diagnosis: Right wrist foreign body, right forearm foreign body Post-op diagnosis: same Procedure Done: Right wrist foreign body removal Right forearm foreign body removal Surgeon: Cj Restrepo Estimated blood loss (mL): 4 Complications: None Post-op Plan: Patient taken to PACU in stable condition recovering well. Patient receive appropriate discharge instructions as well as pain medication postoperatively. We will follow-up with me in the office in 2 weeks. Condition: stable Disposition: same day Coding Level of Care Code Acute Code for González Flores
--- NOTE | 2022-12-02 09:27 | PM.PACU ---
PACU note Narrative: Patient taken to PACU in stable condition recovering well. Patient dressings on in place clean dry and intact. Patient able to wiggle fingers sensation intact light touch distally fingertips warm well-perfused brisk cap refill less than 2 seconds Exam: awake Disposition: discharged
--- NOTE | 2022-12-02 09:27 | PM.OP ---
Operative Report Date of procedure: December 02, 2022 Pre-op diagnosis: Preop Diagnosis Right wrist and forearm foreign bodies Post-op diagnosis: same Procedure done: Right wrist foreign bodies removal(glass) Right forearm foreign body removal (glass) Specimens removed/disposition: Shards of glass removed from both the wrist and forearm to the right upper extremity Surgeon: Cj Restrepo DO Estimated blood loss (mL): 4 17 minutes IV fluids: See anesthesia record Complications: None Findings: See operative report narrative Condition: stable Disposition: same day Brief History: True presents to my office outpatient setting findings consistent with right wrist and forearm foreign bodies x-ray these were evident. Patient had a injury with forearm sustaining multiple lacerations with glass shards entering all were tried to be cleaned out upon initial presentation however every so often has shards of glass that worked their way to the subcutaneous area and has had to have these removed. He has a focal and palpable foreign body on the volar wrist as well as on the volar forearm. We talked about treatment options versus nonoperative and operative intervention. This point time the bothering him and causing significant pain with his daily activities at this point time would like to pursue surgical intervention to have the right wrist and forearm foreign bodies removed. He understands risk benefits complication alternatives to surgery and agrees to proceed with surgical intervention all questions answered. Procedure: Patient seen evaluated preoperative holding area. Consent was reviewed and signed with patient. Correct extremity marked. Palpable foreign body marked on the volar wrist as well as the proximal volar forearm. Patient seen evaluate by anesthesia once cleared for surgery patient was taken back to the operative suite. Patient was then transported on the OR table placed in supine position all bony prominences well-padded patient was appropriate secured to the bed. Armboard was applied to the right upper arm. Patient underwent anesthesia per the anesthesia department once appropriately anesthetized patient had a nonsterile tourniquet applied to the right upper arm. Patient then right upper extremities prepped and draped in sterile orthopedic fashion. Final timeout performed. Patient received appropriate preoperative antibiotics. Esmarch tourniquet was used exsanguinate the right upper extremity and tourniquet was insufflated 250 mmHg. A standard longitudinal incision was made over the volar wrist on the ulnar aspect centering over the foreign body that subcutaneously noted. Sharp scalpel was made only through skin and then switched to Littler dissection scissors and spread longitudinally and created full-thickness skin flaps. Came right down on top of the fascia and in this area I identified scar tissue with multiple small fragments of glass shards these were removed atraumatically with pickups. At this point time through palpation and mini C arm confirmed all of the volar wrist fragments no foreign bodies were removed and then I thoroughly irrigated the wound bed debrided this of any devitalized tissue or scar tissue care was made to protect neurovascular structures. This point time this was thoroughly irrigated and a wet sponge was placed into this wound. Next I then turned my attention towards the proximal forearm foreign body. This had a palpable cystlike nature subcutaneously. Straight longitudinal incision was made centering over the cystlike palpable foreign body on the proximal volar forearm. Sharp scalpel incision was made through skin and subcutaneous tissue. Full-thickness skin flaps with Littler dissection scissors spreading longitudinally I encountered the cystlike mass that was surrounding the foreign body. This was dissected out to its entirety and found to be on top of the forearm fascia this was dissected out with bipolar electrocautery and dissection scissors. I then remove the cyst and once this was open I identified the glass shard which was subsequently removed. All of the cyst was excised from the subcutaneous area atraumatically. I then thoroughly irrigated the wound bed. There is no involvement of any neurovascular structures. I then subsequently irrigated the wound bed. Tourniquet was deflated. Hemostasis was satisfactory with bipolar electrocautery. Mini C arm confirmed complete removal of these foreign bodies. I then closed the skin with interrupted nylon sutures both the forearm and the wrist incisions. These were then dressed with Xeroform 4 x 4's ABD Curlex and an Teddy wrap with his bulky soft dressing. Patient was then awakened from anesthesia and taken to PACU in stable condition. Disposition: Patient taken to PACU in stable condition recovering well. Will receive appropriate discharge instructions as well as pain medication postoperatively. Plan will be for patient to follow-up in orthopedic office in 2 weeks. Patient understands agrees with current plan. All questions answered.
--- NOTE | 2022-12-02 15:29 | ANE.PACU2 ---
Inpatient post-anesthesia follow up: Airway intact: Yes Vital signs: Temperature 97.9 F Pulse Rate 72 Respiratory Rate 18 Blood Pressure 138/98 Pulse Oximetry 100 Oxygen Delivery Me thod Room Air Oxygen Flow Rate Fraction of Inspir ed Oxygen Hydration adequate: Yes Nausea and vomiting: No Pain level: 2 Mental status: Baseline
== END 2022-12-02 08:54 | disposition home or self-care (01) ==
PROVIDERS: Anesthesiology; PCP Family Medicine; Visit Provider Student in an Organized Health Care Education/Training Program
PROC: (CPT 10121; principal; 2022-12-02 07:00)
DX: M79.5 Residual foreign body in soft tissue (principal); J44.9 Chronic obstructive pulmonary disease, unspecified; I10 Essential (primary) hypertension; K21.9 Gastro-esophageal reflux disease without esophagitis; Z86.73 Personal history of transient ischemic attack (TIA), and cerebral infarction without residual deficits; E78.2 Mixed hyperlipidemia; F17.290 Nicotine dependence, other tobacco product, uncomplicated
CPT/HCPCS: 10121 ×2; 36415; 80048; J0131; J1885; J2704; J3010; J3490; J7030

== ENCOUNTER → 2022-12-17 14:55 | Outpatient (BNVA) | payer MEDICAID, SELFPAY | PROVIDERS: PCP Family Medicine; Visit Provider Nurse Practitioner Family | DX: Z98.890 Other specified postprocedural states (principal) | CPT/HCPCS: 99024 ==

== ENCOUNTER → 2023-03-24 09:49 | Outpatient (BNVA) | payer MEDICAID, SELFPAY | PROVIDERS: PCP Family Medicine; Visit Provider Family Medicine | DX: Z12.5 Encounter for screening for malignant neoplasm of prostate (principal); N40.1 Benign prostatic hyperplasia with lower urinary tract symptoms; R39.11 Hesitancy of micturition; E78.2 Mixed hyperlipidemia; I10 Essential (primary) hypertension | CPT/HCPCS: 73030; 80053; 80061; G0103 ==

== ENCOUNTER → 2023-05-21 09:17 | Outpatient (BNVA) | payer MEDICAID, SELFPAY | PROVIDERS: PCP Family Medicine; Referring Provider Family Medicine; Visit Provider Family Medicine | DX: M54.12 Radiculopathy, cervical region (principal); M47.892 Other spondylosis, cervical region | CPT/HCPCS: 72040 ==

== ENCOUNTER → 2023-05-26 14:24 | Outpatient (BNVA) | payer MEDICAID, SELFPAY | PROVIDERS: PCP Family Medicine; Visit Provider Family Medicine | DX: J06.9 Acute upper respiratory infection, unspecified (principal); J98.8 Other specified respiratory disorders; B97.89 Other viral agents as the cause of diseases classified elsewhere | CPT/HCPCS: 87400; 87426 ==

== ENCOUNTER 2023-06-09 12:11 | Outpatient (CLI) | payer MEDICAID, SELFPAY | END 2023-06-09 12:12 | LOC: SPT 12:12 | PROVIDERS: PCP Family Medicine; Visit Provider Anesthesiology Pain Medicine | DX: M54.12 Radiculopathy, cervical region (principal); M43.12 Spondylolisthesis, cervical region; M48.02 Spinal stenosis, cervical region; R93.7 Abnormal findings on diagnostic imaging of other parts of musculoskeletal system | CPT/HCPCS: 97760; 99205; L0172 ==

== ENCOUNTER 2023-06-09 14:53 | Inpatient (IN) | payer MEDICAID, SELFPAY ==
--- NOTE | 2023-06-09 16:14 | MRR_ITS ---
PROCEDURE INFORMATION: Exam: MR Cervical Spine Without Contrast Exam date and time: 06/09/2023 5:07 PM Age: 52 years old Clinical indication: Pain; Cervicalgia; Additional info: Cervical myelopathy, needs to be done urgently TECHNIQUE: Imaging protocol: Magnetic resonance imaging of the cervical spine without contrast. COMPARISON: CR XR cervical spine 3V* [id number] 05/21/2023 9:28 AM FINDINGS: Limitations: The study is motion degraded. Bones/joints: There is straightening of the cervical spine with kyphosis centered at the C4-C5 level similar to the comparison x-ray. Minimal anterolisthesis of C3 on C4, and stepwise retrolisthesis of C4 on C5 and C5 on C6 is also present. No suspicious marrow signal abnormality is present. Spinal cord: No definite spinal cord signal abnormality seen. C2-C3: C2-C3 minimal right-sided dorsal endplate osteophyte is seen without stenosis of the spinal canal. The right neural foramina is mildly narrowed. C3-C4: C3-C4 minimal diffuse disc bulging and endplate osteophyte is seen with mild stenosis of the spinal canal. There is severe left and mild right neural foraminal narrowing due to osteophyte present. C4-C5: C4-C5 diffuse disc bulging and endplate osteophyte is seen with mild stenosis of the spinal canal. There is severe aqcqg-iirfofe-vdsv-left neural foraminal stenosis present. Asymmetric left facet edema which is likely degenerative. C5-C6: C5-C6 diffuse disc bulging and endplate osteophyte is seen with mild stenosis of the spinal canal. The neural foramina are severely narrowed on the [id number]-wbaqhth-ltwt-left side. C6-C7: C6-C7 minimal diffuse disc bulging and endplate osteophyte is seen without stenosis of the spinal canal. There is severe narrowing of both neural foramen hvofo-kibygkm-aujh-left. C7-T1: C7-T1 minimal diffuse disc bulging and endplate osteophyte is seen without stenosis of the spinal canal. There is severe left and moderate right neural foraminal narrowing present. Soft tissues: Unremarkable. Vasculature: Expected flow voids in the vertebral arteries. MR/MR cervical spin wo con* [id number] IMPRESSION: 1. No acute findings. 2. Degenerative changes with kyphosis of the cervical spine, as described. Mild spinal canal stenosis present C3-C6. Multilevel severe neural foraminal narrowing.
[2023-06-09 16:39] VITALS: BP 146/93; PULSE 71; RESP 16; TEMP 36.6; O2SAT 99
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
[2023-06-09 18:04] VITALS: PULSE 71; RESP 16; O2SAT 97
[2023-06-09] MEDS: HYDROcodone-acetaminophen 7.5-325 mg Tablet 1 TAB PO ×2 (18:08→23:55)
[2023-06-09 18:10] VITALS: BMI 28.8
[2023-06-09 19:51] VITALS: O2SAT 96
[2023-06-09 19:58] VITALS: BP 154/93; PULSE 82; RESP 17; O2SAT 96
--- NOTE | 2023-06-09 20:13 | PC.NURSE ---
Patient c/o pain stating that the Hydrocodone didn't help. Dr. Fishman notified and ordered Morphine 2 mg q1 hour PRN.
[2023-06-09 20:38] VITALS: RESP 16
[2023-06-09] MEDS: morphine 4 mg/mL SDV 1 mL 2 MG IVP (20:38)
[2023-06-09 21:37] LABS: Anion Gap 13.2 (5-19); Blood Urea Nitrogen 21 mg/dL (6-20); Calcium 8.6 mg/dL (8.5-10.5); Carbon Dioxide 27 mmol/L (22-29); Chloride 102 mmol/L (98-107); Glomerular Filtration Rate 70.6 mL/min (90-130); Glucose 117 mg/dL (65-115); Osmolality Calculated 290 mOsm/kg (285-295); Potassium 4.2 mmol/L (3.5-5.1); Sodium 138 mmol/L (136-145)
[2023-06-09 21:41] LABS: Basophils # 0.1 10^3/uL (0.0-0.1); Eosinophils # 0.5 10^3/uL (0.0-0.8); Hematocrit 36.9 % (37-53); Lymphocytes # 1.3 10^3/uL (0.8-4.8); Lymphocytes % 25.2 %; Mean Corpuscular HGB Conc 32.2 g/dL (30-55); Mean Corpuscular Hemoglobin 29.2 pg (27-33); Mean Corpuscular Volume 90.7 fl (82-101); Mean Platelet Volume 8.9 fL (7.4-10.4); Monocytes # 0.7 10^3/uL (0.2-0.9); Monocytes % 13.9 %; Neutrophils # 2.58 10^3/uL (1.8-7.7); Neutrophils % 49.7 %; Nucleated Red Blood Cells % 0 %; Platelet Count 387 10^3/cmm (157-399); Red Blood Count 4.07 10^6/uL (3.85-5.65); Red Cell Distribution Width 13.2 % (12.1-15.1); White Blood Count 5.19 10^3/uL (3.29-11.43)
[2023-06-09 23:20] VITALS: BP 151/92; PULSE 79; RESP 18; TEMP 36.6; O2SAT 96
[2023-06-10] VITALS (8 sets, daily range): BP systolic 128–157; BP diastolic 77–89; PULSE 67–79; RESP 15–18; TEMP 36.4–36.7; O2SAT 96–99
--- NOTE | 2023-06-10 00:34 | PC.NURSE ---
Upon shift report, patient did not have neck brace on. Per report from day shift nurse, patient is refusing to wear it.
[2023-06-10] MEDS: HYDROcodone-acetaminophen 7.5-325 mg Tablet 1 TAB PO ×2 (06:04→17:23)
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
--- NOTE | 2023-06-10 07:52 | PC.PHAR ---
PT STATES HAS NO IDEA WHAT MEDS HE TAKES BUT FILLS AT [facility]. WILL CALL AT 8:30 WHEN THEY OPEN, FOR MED LIST VERIFICATION.
--- NOTE | 2023-06-10 09:56 | PC.CHAP ---
Pastoral Care Encounter/Spiritual Assessment Type of Contact [] Declined electronics engineering manager visit [] Patient/Family/Request visit [] Outpatient visit [] Follow-up visit [] Physician referral [] Code/Alert [x] Routine visit [] Staff referral [] Actively dying [] Patient sleeping [] Family support [] [] Out of room [] Palliative care [] [x] Receiving care in room [] Pre-surgical visit [] Trauma [] Long length of stay [] ICU visit [] Other: Relational/Emotional Strength [x] Patient feels connected with others/family/visitors/staff [] Distress [] Loneliness/isolation [] Abandonment Spirituality of Patient [x] Person of Aimee [] Attends Adventism of their Aimee [x] Believes in Prayer [] Reads Bible or Buddhism materials [] There are Spiritual issues to be addressed Ship'S Officer Interventions [x] Prayer [x] Active listening [x] Non-anxious presence [x] Spiritual/emotional support [] Crisis/trauma care [x] Spiritual counseling [] Bereavement support [] Provided bereavement packet [] Provided Bible/devotional materials [] Provided toy/stuffed animal, coloring book to patient or family member [] Provided Communion [] Anointing/[place] [] Salvation [x] Completed spiritual assessment [] Other: Impact on Illness or Injury [] Angry [] Fearful [] Anxious [] Often cries [] Exhaustion [] Unable to work [] Unable to attend uatsdin [] Unable to walk/stand [] Unable to read [] Unable to drive [] Unable to eat/drink [] Unable to sleep [] Unable to be with family [] Patient intubated [] Other: Summary well have surgery on neck on [place] in pain Time spent with patient 10 mins
[2023-06-10] MEDS: morphine 4 mg/mL SDV 1 mL 2 MG IVP ×2 (10:11→20:50)
[2023-06-10] MEDS: atorvastatin 40 mg Tablet PO (18:39)
[2023-06-10] MEDS: duloxetine 20 mg Capsule PO (18:39)
[2023-06-10] MEDS: clotrimazole 1% cream 30 gm 1 APPLIC TOPICAL (18:40)
[2023-06-10] MEDS: baclofen 10 mg Tablet 20 MG PO (20:50)
[2023-06-10] MEDS: pregabalin 100 mg Capsule PO (20:50)
[2023-06-11] VITALS (12 sets, daily range): BP systolic 123–152; BP diastolic 61–98; PULSE 68–78; RESP 15–18; TEMP 36.5–36.9; O2SAT 93–98
[2023-06-11] MEDS: HYDROcodone-acetaminophen 7.5-325 mg Tablet 1 TAB PO ×2 (06:33→15:09)
[2023-06-11] MEDS: baclofen 10 mg Tablet 20 MG PO ×3 (08:55→20:28)
[2023-06-11] MEDS: clotrimazole 1% cream 30 gm 1 APPLIC TOPICAL ×2 (08:55→17:28)
[2023-06-11] MEDS: metoprolol succinate ER (24 HR) 25 mg Tablet PO (08:55)
[2023-06-11] MEDS: pregabalin 100 mg Capsule PO ×3 (08:55→20:28)
[2023-06-11] MEDS: pantoprazole DR 40 mg Tablet PO (08:55)
[2023-06-11] MEDS: duloxetine 20 mg Capsule PO ×2 (08:55→17:28)
[2023-06-11] MEDS: tamsulosin 0.4 mg Capsule PO (08:55)
[2023-06-11] MEDS: morphine 4 mg/mL SDV 1 mL 2 MG IVP ×2 (08:56→17:29)
[2023-06-11] MEDS: albuterol 2.5 mg/3 mL Neb INHALATION (09:03)
[2023-06-11] MEDS: vancomycin 1,000 MG in sodium chloride 0.9% 250 ML 250 MG IV (11:46)
[2023-06-11] MEDS: atorvastatin 40 mg Tablet PO (17:28)
[2023-06-12] VITALS (60 sets, daily range): BP systolic 105–148; BP diastolic 61–92; PULSE 62–102; RESP 14–22; TEMP 36.4–37.3; O2SAT 94–100
[2023-06-12] MEDS: HYDROcodone-acetaminophen 7.5-325 mg Tablet 1 TAB PO (00:11)
[2023-06-12] MEDS: morphine 4 mg/mL SDV 1 mL 2 MG IVP (03:06)
[2023-06-12] MEDS: albuterol 2.5 mg/3 mL Neb INHALATION ×2 (03:12→07:48)
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
--- NOTE | 2023-06-12 07:31 | W.PM.OPSUD ---
Surgery/Procedure H&P Update DATE OF PROCEDURE: June 12, 2023 DATE H&P PERFORMED: 06/09/23 PREOP DIAGNOSIS: Cervical Spondylosis w/myelopathy PLANNED PROCEDURE: Operation Date: 06/12/23 08:00 Proposed Procedures p ACDF C3/4, C4/5, C5/6, C6/7(Not Applicable) - Damian Fishman DO
[2023-06-12] MEDS: vancomycin 1,000 MG in sodium chloride 0.9% 250 ML 250 MG IV ×2 (08:06→18:02)
[2023-06-12] MEDS: lidocaine-epi 1% 20 mL INJ INJECTION (09:12)
--- NOTE | 2023-06-12 10:52 | XRR_ITS ---
PROCEDURE INFORMATION: Exam: XR Cervical Spine Exam date and time: 06/12/2023 4:09 PM Age: 52 years old Clinical indication: Patient HX: Post op c4-c7 fusion TECHNIQUE: Imaging protocol: Radiologic exam of the cervical spine. Views: 2 or 3 views. COMPARISON: CT cervical spin wo con* [id number] 06/12/2023 2:03 PM FINDINGS: Bones/joints: C6 and see below obscured on lateral images. Anterolisthesis of C3 on C4. ACDF extending from C3-C7 without hardware complication. Soft tissues: Postsurgical changes XR/XR cervical spine 3V* [id number] IMPRESSION: No unexpected postoperative findings.
--- NOTE | 2023-06-12 10:52 | CTR_ITS ---
PROCEDURE INFORMATION: Exam: CT Cervical Spine Without Contrast Exam date and time: 06/12/2023 2:03 PM Age: 52 years old Clinical indication: Neck pain; Prior surgery; Surgery date: Post-operative (0-2 days); Surgery type: C-spine fusion today; Additional info: Post op fusion TECHNIQUE: Imaging protocol: Computed tomography of the cervical spine without contrast. Radiation optimization: All CT scans at this facility use at least one of these dose optimization techniques: automated exposure control; mA and/or kV adjustment per patient size (includes targeted exams where dose is matched to clinical indication); or iterative reconstruction. REPORTING DATA: Count of CT and Cardiac NM exams in prior 12 months: This patient has received 0 known CTs and 0 known cardiac nuclear medicine studies in the 12 months prior to the current study. COMPARISON: MR cervical spin wo con* [id number] 06/09/2023 5:07 PM RADIATION DOSE METRICS: Total DLP (mGy-cm): 754.5 FINDINGS: Bones/joints: Anterolisthesis of C3 on C4 and C7 on T1. ACDF extending from C3-C7 without hardware complication. No acute fracture. No severe canal stenosis. Soft tissues: Postsurgical changes in the neck. CT/CT cervical spin wo con* [id number] IMPRESSION: No unexpected postoperative findings.
--- NOTE | 2023-06-12 11:00 | P.OP_ITS ---
Operative Report Date of procedure: June 12, 2023 Pre-op diagnosis: Cervical spondylosis with myelopathy Post-op diagnosis: same Procedure done: 1. Anterior diskectomy C3/4 2. Anterior diskectomy C4/5 3. Anterior diskectomy C5/6 4. Anterior discectomy C6/7 5. Insertion of cage C3/4 6. Insertion of cage C4/5 7. Insertion of cage C5/6 8. Insertion of Cage C6/7 9. Instrumentation with anterior plate from C3-C7 10. Use of allograft Surgeon: Damian Fishman DO Food And Beverage Operations Manager: Wilman kSy Food And Beverage Operations Manager: The surgical garment fitter, Wilman Sky, GIL was needed for his expertise under the microscope. He was important and necessary throughout the procedure to complete in a safe and timely manner. He assisted with patient positioning prepping and draping tissue retraction suctioning of the operative field protection of the dural sac and tissue closure Estimated blood loss (mL): 50 Procedure: 1. Anterior diskectomy C3/4 2. Anterior diskectomy C4/5 3. Anterior diskectomy C5/6 4. Anterior discectomy C6/7 5. Insertion of cage C3/4 6. Insertion of cage C4/5 7. Insertion of cage C5/6 8. Insertion of Cage C6/7 9. Instrumentation with anterior plate from C3-C7 10. Use of allograft The patient was taken to the operating room, where he underwent general endotracheal anesthesia without complications. He was then positioned supine on the operating table, and all areas of impingement were well padded. The arms were carefully padded and tucked at his sides. A roll was placed between the shoulder blades.. An x-ray was done to determine the appropriate level for the skin incision. The entire neck was then sterilely prepped and draped in the usual fashion. Neuromonitoring was attached prior to prepping. A transverse skin incision was made and carried down to the platysma muscle. This was then split in line with its fibers. Blunt dissection was carried down medial to the carotid sheath and lateral to the trachea and esophagus until the anterior cervical spine was visualized. A needle was placed into a disc and an x-ray was done to determine its location. The longus colli muscles were then elevated bilaterally with the electrocautery unit. Self-retaining retractors were placed deep to the longus colli muscle. Attention was brought to the C3/4 level that was confirmed on x-ray. A caspar pin was placed into the C3 vertebrae and the C4 vertebrae. The disk space was then distracted. The microscope was then brought in. A radical anterior discectomies were performed at C3/4. This included complete removal of the anterior annulus, nucleus, and posterior annulus. The posterior longitudinal ligament was removed as were the posterior osteophytes. Foraminotomies were then accomplished bilaterally. This was done using a high speed balbir, kerrison rongeurs and curretes Once all of this was accomplished, the curved currette was used to check for any residual compression. The central canal was wide open as were the foramen. A high-speed bur was used to remove the cartilaginous endplates above and below the interspace. Bleeding cancellous bone was exposed. The disc space were measured and appropriate size cage were placed sterilely onto the field. Allograft graft was packed into the cages. The cage was then placed and there was good juxtaposition against the bleeding decorticated surfaces and good distraction of each interspace. Attention was brought to the next interspace. The [place] pins were removed. Bone wax was used to prevent any bleeding from occurring at the pin sites. Attention was brought to the C4/5 level that was confirmed on x-ray. A caspar pin was placed into the C4 vertebrae and the C5 vertebrae. The disk space was then distracted. The microscope was then brought in. A radical anterior discectomies were performed at C4/5. This included complete removal of the anterior annulus, nucleus, and posterior annulus. The posterior longitudinal ligament was removed as were the posterior osteophytes. Foraminotomies were then accomplished bilaterally. This was done using a high speed balbir, kerrison rongeurs and curretes Once all of this was accomplished, the curved currette was used to check for any residual compression. The central canal was wide open as were the foramen. A high-speed bur was used to remove the cartilaginous endplates above and below the interspace. Bleeding cancellous bone was exposed. The disc space were measured and appropriate size cage were placed sterilely onto the field. Allograft graft was packed into the cages. The cage was then placed and there was good juxtaposition against the bleeding decorticated surfaces and good distraction of each interspace. Attention was brought to the next interspace. The [place] pins were removed. Bone wax was used to prevent any bleeding from occurring at the pin sites. Attention was brought to the C5/6 level that was confirmed on x-ray. A caspar pin was placed into the C5 vertebrae and the C6 vertebrae. The disk space was then distracted. The microscope was then brought in. A radical anterior discectomies were performed at C5/6. This included complete removal of the anterior annulus, nucleus, and posterior annulus. The posterior longitudinal ligament was removed as were the posterior osteophytes. Foraminotomies were then accomplished bilaterally. This was done using a high speed balbir, kerrison rongeurs and curretes Once all of this was accomplished, the curved currette was used to check for any residual compression. The central canal was wide open as were the foramen. A high-speed bur was used to remove the cartilaginous endplates above and below the interspace. Bleeding cancellous bone was exposed. The disc space were measured and appropriate size cage were placed sterilely onto the field. Allograft graft was packed into the cages. The cage was then placed and there was good juxtaposition against the bleeding decorticated surfaces and good distraction of each interspace. Attention was brought to the next interspace. The [place] pins were removed. Bone wax was used to prevent any bleeding from occurring at the pin sites. Attention was brought to the C6/7 level that was confirmed on x-ray. A caspar pin was placed into the C6 vertebrae and the C7 vertebrae. The disk space was then distracted. The microscope was then brought in. A radical anterior discectomies were performed at C6/7. This included complete removal of the anterior annulus, nucleus, and posterior annulus. The posterior longitudinal ligament was removed as were the posterior osteophytes. Foraminotomies were then accomplished bilaterally. This was done using a high speed balbir, kerrison rongeurs and curretes Once all of this was accomplished, the curved currette was used to check for any residual compression. The central canal was wide open as were the foramen. A high-speed bur was used to remove the cartilaginous endplates above and below the interspace. Bleeding cancellous bone was exposed. The disc space were measured and appropriate size cage were placed sterilely onto the field. Allograft graft was packed into the cages. The cage was then placed and there was good juxtaposition against the bleeding decorticated surfaces and good distraction of each interspace. Attention was brought to the next interspace. The [place] pins were removed. Bone wax was used to prevent any bleeding from occurring at the pin sites. The appropriate size anterior cervical locking plate was chosen and bent into gentle lordosis. Two screws were then placed into each of the vertebral bodies at C3, C4, C5, C6 and C7. There was excellent purchase. A final x-ray was done c onfirming good position of the hardware and Cages. The locking screws were then applied, also with excellent purchase. Following a final copious irrigation, there was good hemostasis and no dural leaks. The carotid pulse was strong. The wounds were then closed in layers using 2-0 Vicryl suture for the platysma muscle, 2-0 Vicryl suture for the subcutaneous tissue, and 4-0 monocryl suture in a subcuticular skin closure. Glue was placed followed by application of a sterile dressing. The drain was hooked to bulb suction. A soft collar was applied. The patient was then carefully returned to the supine position on his hospital bed where he was reversed and extubated and taken to the recovery room having tolerated the procedure well.
--- NOTE | 2023-06-12 11:31 | XR_ITS ---
WS: [id number] INTRAOPERATIVE TECHNIQUE: 3 Spot fluoroscopic images for intraoperative purposes. FLUOROSCOPY TIME: 21.6 seconds CLINICAL INFORMATION: OR PICS COMPARISON: None. FINDINGS: Endotracheal tube tip above the violeta. Intraoperative changes ACDF C3-C7. Hardware appears in good p osition. IMPRESSION: Images obtained for intraoperative purposes.
--- NOTE | 2023-06-12 12:00 | ANE.PACU2 ---
Inpatient post-anesthesia follow up: Airway intact: No Vital signs: Temperature 98.9 F Pulse Rate 114 Respiratory Rate 16 Blood Pressure 98/65 Pulse Oximetry 98 Oxygen Delivery Me thod Mechanical Ventila tion Oxygen Flow Rate Fraction of Inspir ed Oxygen 30 Hydration adequate: Yes Nausea and vomiting: No Pain level: 1 Mental status: Altered Additional Comments: Patient presented with delayed emergence upon completion of surgery, not response to pain or eye opening with sevo of 0%. patient hypercapic to ETCO2 of 65 and 70. Possible etiologies: residual drug effect, metabolic abnormality to include hyponatremia or acodisos, CO2 narcosis, postictal state, or stroke. Highest suspicion is residual drug effect in setting of hypercapnia. Brought to ICU intubated to allow for metabolic workup and stroke work up.
--- NOTE | 2023-06-12 12:02 | CTR_ITS ---
PROCEDURE INFORMATION: Exam: CT Head Without Contrast Exam date and time: 06/12/2023 2:03 PM Age: 52 years old Clinical indication: Altered mental status/memory loss; Additional info: Assess for CVA, recent spinal surgery, AMS post surgery TECHNIQUE: Imaging protocol: Computed tomography of the head without contrast. Radiation optimization: All CT scans at this facility use at least one of these dose optimization techniques: automated exposure control; mA and/or kV adjustment per patient size (includes targeted exams where dose is matched to clinical indication); or iterative reconstruction. REPORTING DATA: Count of CT and Cardiac NM exams in prior 12 months: This patient has received 0 known CTs and 0 known cardiac nuclear medicine studies in the 12 months prior to the current study. COMPARISON: CT head wo con* [id number] 03/04/2021 2:49 PM RADIATION DOSE METRICS: Total DLP (mGy-cm): 949.4 FINDINGS: Brain: No hemorrhage. Foley-white matter differentiation grossly maintained. Cerebral ventricles: No ventriculomegaly. Paranasal sinuses: Diffuse paranasal sinus opacities. Mastoid air cells: No mastoid effusion. Bones/joints: No acute findings. Soft tissues: No acute findings. CT/CT head wo con* [id number] IMPRESSION: No acute intracranial abnormality. Diffuse paranasal sinus opacities/sinusitis.
[2023-06-12] MEDS: fentaNYL 1,000 MCG/100 ML BAG 1 MCG IV (12:11)
[2023-06-12 12:13] LABS: ABG PCO2 53.6 mmHg (35-45); ABG PH Result 7.32 (7.35-7.45); Arterial Blood Gas Hematocrit 37.6 % (42-52); Base Excess ABG 0.2 mmol/L (-2.0-2.0); Blood Gas Allen Test Pos; Blood Gas Operator Identificat CAK; Blood Gas Sample Site Brachial, left; Blood Gas Sample Type Arterial; Blood Gas Tidal Volume 0.45; HCO3 ABG 27.2 mmol/L (22-26); Oxygen Device VENT; PO2 FiO2 Ratio Arterial Blood 0
[2023-06-12 12:35] LABS: Basophils % 0.4 %; Eosinophils # 0.1 10^3/uL (0.0-0.8); Eosinophils % 0.7 %; Hematocrit 39.1 % (37-53); Lymphocytes # 0.5 10^3/uL (0.8-4.8); Lymphocytes % 5.5 %; Mean Corpuscular HGB Conc 32.2 g/dL (30-55); Mean Corpuscular Hemoglobin 29.2 pg (27-33); Mean Corpuscular Volume 90.7 fl (82-101); Monocytes # 0.1 10^3/uL (0.2-0.9); Monocytes % 1.5 %; Neutrophils # 8.75 10^3/uL (1.8-7.7); Neutrophils % 91.3 %; Nucleated Red Blood Cells % 0 %; Platelet Count 406 10^3/cmm (157-399); Red Blood Count 4.31 10^6/uL (3.85-5.65); White Blood Count 9.59 10^3/uL (3.29-11.43)
[2023-06-12 12:51] LABS: Alanine Aminotransferase 17 U/L (0-41); Albumin Level 3.5 g/dL (3.5-5.2); Alkaline Phosphatase 88 U/L (40-130); Anion Gap 10.6 (5-19); Aspartate Amino Transferase 16 U/L (0-40); Blood Urea Nitrogen 15 mg/dL (6-20); Calcium 8.1 mg/dL (8.5-10.5); Carbon Dioxide 27 mmol/L (22-29); Chloride 106 mmol/L (98-107); Globulin 2.6 g/dL (1.3-4.6); Glomerular Filtration Rate 78.8 mL/min (90-130); Glucose 125 mg/dL (65-115); Osmolality Calculated 290 mOsm/kg (285-295); Potassium 4.6 mmol/L (3.5-5.1); Sodium 139 mmol/L (136-145); Total Bilirubin 0.2 mg/dL (0.15-1.2); Total Protein 6.1 g/dL (6.6-8.7)
[2023-06-12] MEDS: lactated ringers 1,000 ML 90 ML IV (13:11)
[2023-06-12] MEDS: propofol 1,000 MG/100 ML INJ 5.17 MG IV (13:13)
--- NOTE | 2023-06-12 14:58 | XRR_ITS ---
PROCEDURE INFORMATION: Exam: XR Chest Exam date and time: 06/12/2023 4:09 PM Age: 52 years old Clinical indication: Device placement; Ett placement (vent status) TECHNIQUE: Imaging protocol: Radiologic exam of the chest. Views: 1 view. COMPARISON: CR XR chest 2V* [id number] 06/26/2022 5:32 PM FINDINGS: Tubes, catheters and devices: Endotracheal tube tip in place 5 cm above the violeta. Lungs: See Heart/Mediastinum finding. Pleural spaces: Small left pleural effusion. Heart/Mediastinum: Cardiomegaly and mild pulmonary vascular congestion. Bones/joints: Unremarkable. XR/XR chest 1V portable [id number] IMPRESSION: 1. Endotracheal tube tip in place 5 cm above the violeta. 2. Cardiomegaly and mild pulmonary vascular congestion. 3. Small left pleural effusion.
[2023-06-12] MEDS: ipratropium-albuterol 3 mL Neb INHALATION ×2 (15:45→21:02)
[2023-06-12 17:14] LABS: Adenovirus Not Detected (NOT DETECT); Chlamydia Pneumoniae Not Detected (NOT DETECT); Coronavirus 229E,HKU1,NL63,OC4 Not Detected (NOT DETECT); Human Metapneumovirus Not Detected (NOT DETECT); Human Rhinovirus/Enterovirus Not Detected (NOT DETECT); Influenza A Not Detected (NOT DETECT); Influenza A H1 Not Detected (NOT DETECT); Influenza A H1-2009 Not Detected (NOT DETECT); Influenza A H3 Not Detected (NOT DETECT); Influenza B Not Detected (NOT DETECT); Mycoplasma Pneumoniae Not Detected (NOT DETECT); Parainfluenza Virus Type 1 Not Detected (NOT DETECT); Parainfluenza Virus Type 2 Not Detected (NOT DETECT); Parainfluenza Virus Type 3 Not Detected (NOT DETECT); Parainfluenza Virus Type 4 Not Detected (NOT DETECT); Respiratory Syncytial Virus A Not Detected (NOT DETECT); Respiratory Syncytial Virus B Not Detected (NOT DETECT); SARS-COV-2 Not Detected (NOT DETECT)
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
[2023-06-12] MEDS: clotrimazole 1% cream 30 gm 1 APPLIC TOPICAL (18:02)
[2023-06-12] MEDS: FUROsemide 10 mg/mL SDV 4mL 40 MG IVP (18:04)
[2023-06-12] MEDS: propofol 1,000 MG/100 ML INJ 15.51 MG IV (18:28)
[2023-06-12 19:03] LABS: Troponin(5th) Baseline 9 ng/L (0-15)
[2023-06-12 19:11] LABS: NT Pro B Type Natriuretic Pept 36 pg/mL (0-125)
[2023-06-12] MEDS: budesonide 0.5 mg/2 mL Neb INHALATION (21:02)
[2023-06-12 21:15] LABS: Troponin 5 2HR 10.25 ng/L (0-15); Troponin 5 2HR Delta 1.25 ABS# (0-10)
--- NOTE | 2023-06-12 21:19 | ECG_ITS ---
[facility] Test Date: 2023-06-12 Pat Name: Sj Dhillon Department: Room: ICU11 Gender: Male Quail Farmer: : 1970 Requested By: Leigh Ann Schrader Order Number: [id number] Jose MD: Judith Nice M.D. Measurements Intervals [place] Rate: 86 P: 75 OR: 164 QRS: 5 QRSD: 101 T: 60 QT: 381 QTc: 456 Interpretive Statements SINUS RHYTHM NONSPECIFIC T-WAVE ABNORMALITY Compared to ECG 02/01/2020 22:08:48 T-wave abnormality now present Sinus bradycardia no longer present Electronically Signed On 06-13-2023 22:17:37 ASSEMBLY MACHINE OFFBEARER by Judith Nice M.D. [id number]
--- NOTE | 2023-06-12 21:55 | PC.NURSE ---
MAR Upon assessment of patient, fentanyl administering at 50 mcg/hr and propofol administering at 60 mcg/kg/min while MAR displayed fentanyl at 30 mcg/hr and propofol at 30 mcg/kg/min. MAR updated to reflect administration.
[2023-06-12] MEDS: propofol 1,000 MG/100 ML INJ 28.44 MG IV (22:18)
--- NOTE | 2023-06-12 23:47 | ECG_ITS ---
[facility] Test Date: 2023-06-13 Pat Name: Sj Dhillon Department: Room: ICU11 Gender: Male Shank Inspector: : 1970 Requested By: Leigh Ann Schrader Order Number: [id number] Reading MD: Judith Nice M.D. Measurements Intervals [place] Rate: 80 P: 72 AL: 154 QRS: 7 QRSD: 102 T: 64 QT: 393 QTc: 456 Interpretive Statements SINUS RHYTHM NONSPECIFIC T-WAVE ABNORMALITY Compared to ECG 06/12/2023 21:19:22 No significant changes Electronically Signed On 06-13-2023 22:18:47 STOCKROOM CLERK by Judith Nice M.D. [id number]
[2023-06-13] VITALS (68 sets, daily range): BP systolic 98–158; BP diastolic 63–104; PULSE 67–114; RESP 10–17; TEMP 36.6–37.2; O2SAT 88–100; BMI 28.8
[2023-06-13] MEDS: propofol 1,000 MG/100 ML INJ 25.86 MG IV (01:56)
[2023-06-13 02:25] LABS: Troponin 5 6HR 10.36 ng/L (0-15); Troponin 5 6HR Delta 1.36 ng/L (0-12)
[2023-06-13] MEDS: lactated ringers 1,000 ML 90 ML IV (02:56)
[2023-06-13] MEDS: ipratropium-albuterol 3 mL Neb INHALATION ×4 (03:50→20:14)
[2023-06-13 04:18] LABS: ABG PCO2 46.2 mmHg (35-45); ABG PH Result 7.42 (7.35-7.45); Arterial Blood Gas Hematocrit 39.4 % (42-52); Base Excess ABG 4.3 mmol/L (-2.0-2.0); Blood Gas Operator Identificat JB; Blood Gas Sample Site Brachial, right; Blood Gas Sample Type Arterial; HCO3 ABG 29.6 mmol/L (22-26); Oxygen Device VENT; PO2 FiO2 Ratio Arterial Blood 0
[2023-06-13 05:27] LABS: Basophils % 0.2 %; Eosinophils % 0.1 %; Lymphocytes # 1.1 10^3/uL (0.8-4.8); Lymphocytes % 8.7 %; Mean Corpuscular HGB Conc 32.7 g/dL (30-55); Mean Corpuscular Hemoglobin 29.1 pg (27-33); Mean Corpuscular Volume 88.9 fl (82-101); Mean Platelet Volume 9.1 fL (7.4-10.4); Monocytes # 1.2 10^3/uL (0.2-0.9); Monocytes % 9.9 %; Neutrophils # 9.78 10^3/uL (1.8-7.7); Neutrophils % 80.6 %; Nucleated Red Blood Cells % 0 %; Platelet Count 421 10^3/cmm (157-399); Red Blood Count 4.16 10^6/uL (3.85-5.65); Red Cell Distribution Width 13.5 % (12.1-15.1); White Blood Count 12.13 10^3/uL (3.29-11.43)
[2023-06-13] MEDS: vancomycin 1,000 MG in sodium chloride 0.9% 250 ML 250 MG IV (05:31)
[2023-06-13] MEDS: propofol 1,000 MG/100 ML INJ 31.03 MG IV (05:36)
[2023-06-13 05:44] LABS: Alanine Aminotransferase 13 U/L (0-41); Albumin Level 3.3 g/dL (3.5-5.2); Alkaline Phosphatase 86 U/L (40-130); Anion Gap 18.5 (5-19); Aspartate Amino Transferase 17 U/L (0-40); Blood Urea Nitrogen 18 mg/dL (6-20); Calcium 8.4 mg/dL (8.5-10.5); Carbon Dioxide 25 mmol/L (22-29); Chloride 102 mmol/L (98-107); Glomerular Filtration Rate 78.8 mL/min (90-130); Glucose 138 mg/dL (65-115); Osmolality Calculated 296 mOsm/kg (285-295); Potassium 4.5 mmol/L (3.5-5.1); Sodium 141 mmol/L (136-145); Total Bilirubin 0.2 mg/dL (0.15-1.2); Total Protein 6.3 g/dL (6.6-8.7)
--- NOTE | 2023-06-13 07:27 | P.PN_ITS ---
Subjective Subjective: POD 1 Patient remains intubated. Vitals/I&O/Wt Last Vital Signs Temp 98.9 F 06/13/23 04:30 Pulse 72 06/13/23 06:00 Resp 14 06/13/23 03:00 BP 129/74 06/13/23 06:00 Pulse Ox 100 06/13/23 06:00 O2 Del Method Mechanical Ventilation 06/13/23 04:30 FiO2 30 06/13/23 04:30 06/12/23 06/13/23 06/13/23 22:59 06:59 14:59 Intake Total 414.076 / 353.202 9064.256 / 1884.446 Output Total 2220 / 2220 1533 / 3753 Balance -1805.924 / -1550.810 -317.744 / -1868.554 Weight last 48 hrs Weight 190 lb Physical Exam Narrative: Patient remains intubated. nontender with palpation about the incisional site. Incision appears to be healing nicely without signs of erythema or drainage. No signs of infection. Good motor strength throughout both upper extremities. Appears to fire in all motor groups with 5/5 strength. Hands are warm good cap refill in all digits. Normal sensation to light touch in all dermatomal areas. Urinary Catheter Management: Fiugeroa: Cath Placed During This Visit: yes Reason for Continuing Indwelling Catheter: Accurate Measurement of Urinary Output in Critically Ill Patients Urinary Catheter Date of Insertion: 06/12/23 Urinary Catheter Time of Insertion: 08:20 Data 06/13/23 04:53 06/13/23 04:53 A&P Assessment and plan (1) Cervical spondylosis with myelopathy and radiculopathy: Discontinued Hemovac drain at the bedside. Discussed with the nurse to ho pefully extubate him this morning. (2) Status post cervical spinal fusion: Attestations Medical Necessity Statement*: hope to extubate this AM Coding Level of Care Code Acute Code for [facility] Fwd Diagnoses Cervical spondylosis with myelopathy and radiculopathy M47.12; M47.22 Status post cervical spinal fusion Z98.1
[2023-06-13] MEDS: budesonide 0.5 mg/2 mL Neb INHALATION ×2 (07:43→20:14)
[2023-06-13] MEDS: fentaNYL 1,000 MCG/100 ML BAG 2 MCG IV (07:49)
--- NOTE | 2023-06-13 09:18 | PC.NURSE ---
doctor here drain removed from neck and dressing changed lowered sedation at this time to wean vent
--- NOTE | 2023-06-13 09:49 | P.PN_ITS ---
Subjective Subjective: Check respiratory viral panelABG improving today at 7.42/46 point 9.6 on vent settings of 30% FiO2, PEEP of 5. Minimal vent settings currently. Patient is not starting to wake up, agitated, Plan to wean off sedation and assess for extubation. Medications: Reviewed: Yes Vitals/I&O/Wt Last Vital Signs Temp 98.9 F 06/13/23 04:30 Pulse 114 H 06/13/23 09:00 Resp 16 06/13/23 09:07 BP 98/65 06/13/23 09:00 Pulse Ox 98 06/13/23 09:07 O2 Del Method Mechanical Ventilation 06/13/23 07:46 FiO2 30 06/13/23 09:07 06/12/23 06/13/23 06/13/23 22:59 06:59 14:59 Intake Total 414.076 / 412.970 6680.256 / 1884.446 400.989 / 400.989 Output Total 2220 / 2220 1533 / 3753 Balance -1805.924 / -1550.810 -317.744 / -1868.554 400.989 / 400.989 Weight last 48 hrs Weight 86.183 kg Physical Exam Narrative: General: intubated, sedated HEENT: PERRLA, pupils bilaterally equal and reactive, pallors not present Chest: Normal vesicular breath sounds, no added sounds, equal good air entry bilaterally CVS: S1-S2 regular, no murmurs, no tachycardia, no gallops, no rubs Abdomen: Soft, nontender, no organomegaly, bowel sounds present Neuro: unable to assess Urinary Catheter Management: Figueroa: Cath Placed During This Visit: yes Reason for Continuing Indwelling Catheter: Accurate Measurement of Urinary Output in Critically Ill Patients Urinary Catheter Date of Insertion: 06/12/23 Urinary Catheter Time of Insertion: 08:20 Data 06/13/23 04:53 06/13/23 04:53 Other Labs: Launch?Image Ti [facility] [address] [place] [address]. [place] [address] XRay Report Signed Patient: Sj Dhillon Unit #: [id number] : 1970 Age/Sex: 52 / M ADM Date: 06/12/23 Loc: ICU Room/Bed: [place] [address]: Damian Fishman DO Ordering Provider/Ordering MD: Boo Schrader MD Date of Service: 06/12/23 Procedure(s): XR chest 1V portable [id number] Accession Number(s): [id number] Report Number: [id number] PROCEDURE INFORMATION: Exam: XR Chest Exam date and time: 06/12/2023 4:09 PM Age: 52 years old Clinical indication: Device placement; Ett placement (vent status) TECHNIQUE: Imaging protocol: Radiologic exam of the chest. Views: 1 view. COMPARISON: CR XR chest 2V* [id number] 06/26/2022 5:32 PM FINDINGS: Tubes, catheters and devices: Endotracheal tube tip in place 5 cm above the violeta. Lungs: See Heart/Mediastinum finding. Pleural spaces: Small left pleural effusion. Heart/Mediastinum: Cardiomegaly and mild pulmonary vascular congestion. Bones/joints: Unremarkable. XR/XR chest 1V portable [id number] IMPRESSION: 1. ? Endotracheal tube tip in place 5 cm above the violeta. 2. ? Cardiomegaly and mild pulmonary vascular congestion. 3. ? Small left pleural effusion. [address] [place] [address] CT Scan Report Signed Patient: Sj Dhillon Unit #: [id number] : 1970 Age/Sex: 52 / M ADM Date: 06/12/23 [facility]: Damian Fishman DO Ordering Provider/Ordering MD: Boo Schrader MD Date of Service: 06/12/23 Procedure(s): CT head wo con* [id number] Accession Number(s): [id number] Report Number: [id number] PROCEDURE INFORMATION: Exam: CT Head Without Contrast Exam date and time: 06/12/2023 2:03 PM Age: 52 years old Clinical indication: Altered mental status/memory loss; Additional info: Assess for CVA, recent spinal surgery, AMS post surgery TECHNIQUE: Imaging protocol: Computed tomography of the head without contrast. Radiation optimization: All CT scans at this facility use at least one of these dose optimization techniques: automated exposure control; mA and/or kV adjustment per patient size (includes targeted exams where dose is matched to clinical indication); or iterative reconstruction. REPORTING DATA: Count of CT and Cardiac NM exams in prior 12 months: This patient has received 0 known CTs and 0 known cardiac nuclear medicine studies in the 12 months prior to the current study. COMPARISON: CT head wo con* [id number] 03/04/2021 2:49 PM RADIATION DOSE METRICS: Total DLP (mGy-cm): 949.4 FINDINGS: Brain: No hemorrhage. Foley-white matter differentiation grossly maintained.? Cerebral ventricles: No ventriculomegaly. Paranasal sinuses:? Diffuse paranasal sinus opacities. Mastoid air cells: No mastoid effusion. Bones/joints: No acute findings. Soft tissues: No acute findings. CT/CT head wo con* [id number] IMPRESSION: No acute intracranial abnormality. ? Diffuse paranasal sinus opacities/sinusitis. ? ABG Interpretation 1: 06/12/23 06/13/23 12:02 04:05 ABG pH 7.32 L 7.42 ABG pCO2 53.6 H 46.2 H ABG pO2 112.0 H 89.0 ABG HCO3 27.2 H 29.6 H ABG Base Excess 0.2 4.3 H A&P Assessment and plan (1) Status post cervical spinal fusion: (2) COPD (chronic obstructive pulmonary disease): Qualifiers: COPD type: chronic bronchitis Chronic bronchitis type: simple Qualified Code(s): J41.0 - Simple chronic bronchitis (3) Acute hypercapnic respiratory failure: Plan 52-year-old male admitted for elective C-spine surgery, status post C3-C7 discectomy with instrumentation 06/12/23. Intraoperative course complicated by hypotension for which he required pressor support in the emergency room. Postoperatively, he was unable to be awakened after weaning of sedation therefore brought to the ICU. ABG showing evidence of acute hypercapnic respiratory failure, improving today after being on ventilatory support through 06/12 and 06/13 am. Suspect that patient may have underlying COPD given his history of chronic smoking, use of inhalers as needed at home. states that patient had been wheezing over the past 2 days after having recently had COVID 3 weeks ago. Possible he may be having an exacerbation of his COPD likely triggered by recent viral illness. CXR 06/12 showed Cardiomegaly and mild pulmonary vascular congestion Small left pleural effusion, likely from fluid resuscitation. . BNP normal at 36 Negtaive EKG and troponin series for ACS negative respiratory viral panel dexamethasone 6mg IVP q12h to continue duoneb q6h, budesonide q12h to continue CT head negative For acute intracranial abnormalities. Plan to wean down sedation and extubate as tolerated. updated at bedside This documentation was created by [employer] senior solutions engineer software. Every effort was made to ensure accuracy of senior solutions engineer. Any obvious errors or omissions should be clarified with the author of the document. Attestations Medical Necessity Statement*: per admitting Critical Care Time: The high probability of a clinically significant, sudden or life threatening deterioration of the patient's [respiratory] system(s) required my full and direct attention, intervention and personal management. The critical care time is as shown. This time is in addition to time spent performing any reported procedures but includes the following: [x] Data and vital sign review and interpretation [x] Patient assessment, examination and intervention [x] Documentation [x] Medication orders and management Critical Care Time (min): 35 Coding Level of Care Code Critical Care >/= 30 minutes Diagnoses Status post cervical spinal fusion Z98.1 COPD (chronic obstructive pulmonary disease) J41.0 COPD type: chronic bronchitis Chronic bronchitis type: simple Acute hypercapnic respiratory failure J96.02
[2023-06-13] MEDS: dexamethasone 4 mg/mL INJ 6 MG IVP ×2 (10:02→21:08)
[2023-06-13] MEDS: ketorolac 30 mg/mL INJ IVP (10:36)
[2023-06-13 10:45] LABS: Thyroid Stimulating Hormone 0.81 uIU/mL (0.27-4.20)
[2023-06-13] MEDS: metoprolol succinate ER (24 HR) 25 mg Tablet PO (10:58)
[2023-06-13] MEDS: tamsulosin 0.4 mg Capsule PO (10:58)
[2023-06-13] MEDS: pregabalin 100 mg Capsule PO ×3 (10:59→21:10)
[2023-06-13] MEDS: pantoprazole DR 40 mg Tablet PO (10:59)
[2023-06-13] MEDS: docusate sodium 100 mg Capsule PO ×2 (10:59→17:34)
[2023-06-13] MEDS: duloxetine 20 mg Capsule PO ×2 (10:59→17:34)
--- NOTE | 2023-06-13 11:00 | PC.NURSE ---
extubated well , tolerated noon meal with no distress ventura removed .. at bedside
[2023-06-13 11:05] LABS: Ammonia 56 umol/L (16-60)
[2023-06-13] MEDS: clotrimazole 1% cream 30 gm 1 APPLIC TOPICAL ×2 (11:30→17:34)
[2023-06-13] MEDS: HYDROcodone-acetaminophen 10-325 mg Tablet PO (12:35)
[2023-06-13] MEDS: atorvastatin 40 mg Tablet PO (17:34)
[2023-06-14] VITALS (10 sets, daily range): BP systolic 107–158; BP diastolic 78–112; PULSE 73–99; RESP 14–16; TEMP 36.8–37.1; O2SAT 91–99
[2023-06-14] MEDS: ipratropium-albuterol 3 mL Neb INHALATION ×2 (02:59→08:44)
[2023-06-14] MEDS: ketorolac 30 mg/mL INJ IVP ×2 (03:15→09:22)
[2023-06-14 05:34] LABS: Basophils % 0.2 %; Hematocrit 34.8 % (37-53); Lymphocytes # 0.9 10^3/uL (0.8-4.8); Lymphocytes % 6.9 %; Mean Corpuscular HGB Conc 32.5 g/dL (30-55); Mean Corpuscular Hemoglobin 29.1 pg (27-33); Mean Corpuscular Volume 89.7 fl (82-101); Mean Platelet Volume 9.3 fL (7.4-10.4); Monocytes # 1.2 10^3/uL (0.2-0.9); Neutrophils # 10.91 10^3/uL (1.8-7.7); Neutrophils % 83.4 %; Nucleated Red Blood Cells % 0 %; Platelet Count 410 10^3/cmm (157-399); Red Blood Count 3.88 10^6/uL (3.85-5.65); Red Cell Distribution Width 13.6 % (12.1-15.1); White Blood Count 13.08 10^3/uL (3.29-11.43)
[2023-06-14 05:58] LABS: Alanine Aminotransferase 16 U/L (0-41); Albumin Level 3.4 g/dL (3.5-5.2); Alkaline Phosphatase 83 U/L (40-130); Anion Gap 15.5 (5-19); Aspartate Amino Transferase 21 U/L (0-40); Blood Urea Nitrogen 21 mg/dL (6-20); Calcium 8.5 mg/dL (8.5-10.5); Carbon Dioxide 27 mmol/L (22-29); Chloride 102 mmol/L (98-107); Globulin 2.9 g/dL (1.3-4.6); Glucose 149 mg/dL (65-115); Osmolality Calculated 296 mOsm/kg (285-295); Potassium 4.5 mmol/L (3.5-5.1); Sodium 140 mmol/L (136-145); Total Bilirubin 0.3 mg/dL (0.15-1.2); Total Protein 6.3 g/dL (6.6-8.7)
--- NOTE | 2023-06-14 06:40 | P.PN_ITS ---
Subjective Subjective: POD 2 Patient reports continued weakness in the right arm and neck pain. Mild swallowing difficulty. Denies shortness of breath or chest pain. Vitals/I&O/Wt Last Vital Signs Temp 98.8 F 06/14/23 04:00 Pulse 76 06/14/23 06:00 Resp 16 06/14/23 06:00 BP 121/79 06/14/23 06:00 Pulse Ox 91 06/14/23 06:00 O2 Del Method Room Air 06/14/23 06:00 O2 Flow Rate 2 06/14/23 02:00 FiO2 30 06/13/23 09:07 06/13/23 06/13/23 06/14/23 14:59 22:59 06:59 Intake Total 1620.827 / 1620.827 450 / 2070.827 500 / 2570.827 Output Total 800 / 800 375 / 1175 1200 / 2375 Balance 820.827 / 820.827 75 / 895.827 -700 / 195.827 Weight last 48 hrs Weight 190 lb Physical Exam Narrative: Patient is alert and oriented x3 with a good general appearance normal mood and affect. Nontender with palpation about the incisional site. Incision appears to be healing nicely without signs of erythema or drainage. No signs of infection. Good motor strength throughout both upper extremities. Right upper extremity 4/5 strength diffusely with swelling in the right hand that he had prior to surgery. Weak with shoulder abduction. Appears to fire in all motor groups with 5/5 strength in the left upper extremity. hands are warm good cap refill in all digits. Normal sensation to light touch in all dermatomal areas. Urinary Catheter Management: Figueroa: Cath Placed During This Visit: yes Reason for Continuing Indwelling Catheter: Accurate Measurement of Urinary Output in Critically Ill Patients Urinary Catheter Date of Insertion: 06/12/23 Urinary Catheter Time of Insertion: 08:20 Data 06/14/23 05:00 06/14/23 05:00 Micro: Microbiology 06/12/23 14:00 Gram Stain - Final Sputum - Endotracheal Tube Aspirate A&P Assessment and plan (1) Status post cervical spinal fusion: Discussed at length with the patient that given his right shoulder trauma that he very well could have a rotator cuff injury. Given the nature of his cervical myelopathy that took precedence over treating the right shoulder. Continue to wear the [place] J collar continue ice to the neck. No overhead lifting continue range of motion activities to the right arm as tolerated. We will see him back in the office in 1 week's time for wound check. Discussed that we may need a MRI scan of his right shoulder to check the integrity of the rotator cuff. Continue incentive spirometer at home for pulmonary toilet. Okay from orthopedic standpoint to discharge home today when cleared with hospitalist team. (2) Cervical spondylosis with myelopathy and radiculopathy: Attestations Medical Necessity Statement*: Discharge home when cleared by hospitalist team Coding Level of Care Code Acute Code for Chg Fwd Diagnoses Status post cervical spinal fusion Z98.1 Cervical spondylosis with myelopathy and radiculopathy M47.12; M47.22
[2023-06-14] MEDS: budesonide 0.5 mg/2 mL Neb INHALATION (08:44)
[2023-06-14] MEDS: tamsulosin 0.4 mg Capsule PO (08:59)
[2023-06-14] MEDS: duloxetine 20 mg Capsule PO (08:59)
[2023-06-14] MEDS: pregabalin 100 mg Capsule PO (08:59)
[2023-06-14] MEDS: pantoprazole DR 40 mg Tablet PO (08:59)
[2023-06-14] MEDS: docusate sodium 100 mg Capsule PO (08:59)
[2023-06-14] MEDS: clotrimazole 1% cream 30 gm 1 APPLIC TOPICAL (08:59)
[2023-06-14] MEDS: metoprolol succinate ER (24 HR) 25 mg Tablet PO (08:59)
[2023-06-14] MEDS: dexamethasone 4 mg/mL INJ 6 MG IVP (09:00)
--- NOTE | 2023-06-14 12:40 | P.PN_ITS ---
Subjective Subjective: Reports he is doing well. He is awaiting discharge home. Medications: Reviewed: Yes Vitals/I&O/Wt Last Vital Signs Temp 98.2 F 06/14/23 08:00 Pulse 79 06/14/23 10:00 Resp 15 06/14/23 10:00 BP 107/79 06/14/23 10:00 Pulse Ox 99 06/14/23 10:00 O2 Del Method Room Air 06/14/23 08:44 O2 Flow Rate 2 06/14/23 02:00 FiO2 30 06/13/23 09:07 06/13/23 06/14/23 06/14/23 22:59 06:59 14:59 Intake Total 450 / 2070.827 500 / 2570.827 Output Total 375 / 1175 1200 / 2375 Balance 75 / 895.827 -700 / 195.827 Weight last 48 hrs Weight 86.183 kg Physical Exam Narrative: Family at bedside. Sitting up at edge of bed. Const: COMMON NORMALS: patient oriented x3 and alert GENERAL APPEARANCE: cooperative ORIENTATION/CONSCIOUSNESS: Yes awake HENMT: COMMON NORMALS: oropharynx normal Neck/C-Spine: COMMON NORMALS: no JVD OTHER: [place] J collar Resp: COMMON NORMALS: normal respiratory effort and clear to auscultation bilaterally AUSCULTATION: clear to auscultation bilaterally Cardio: COMMON NORMALS: no JVD, regular rhythm, S1 normal heart sound present, S2 normal heart sound present and No murmurs present (Cardio) RHYTHM: regular rhythm HEART SOUNDS: S1 normal heart sound present and S2 normal heart sound present GI: COMMON NORMALS: Normal to inspection, nondistended, normoactive bowel sounds present, Soft to palpation and non-tender PALPATION: Yes Soft to palpation Extremity: COMMON NORMALS: no joint enlargement and no pedal edema Neuro: COMMON NORMALS: patient oriented x3 and moves all extremities SENSORIUM/ORIENTATION: Yes alert Skin: COMMON NORMALS: no rashes or lesions noted GENERAL SKIN EXAM: no rashes or lesions noted Urinary Catheter Management: Figueroa: Cath Placed During This Visit: yes Reason for Continuing Indwelling Catheter: Accurate Measurement of Urinary Output in Critically Ill Patients Urinary Catheter Date of Insertion: 06/12/23 Urinary Catheter Time of Insertion: 08:20 Data 06/14/23 05:00 06/14/23 05:00 Micro: Microbiology 06/12/23 14:00 Gram Stain - Final Sputum - Endotracheal Tube Aspirate Sputum Culture - Preliminary A&P Assessment and plan (1) Status post cervical spinal fusion: (2) COPD (chronic obstructive pulmonary disease): Qualifiers: COPD type: chronic bronchitis Chronic bronchitis type: simple Qualified Code(s): J41.0 - Simple chronic bronchitis (3) Acute hypercapnic respiratory failure: Plan 52-year-old male admitted for elective C-spine surgery, status post C3-C7 discectomy with instrumentation 06/12/23. Intraoperative course complicated by hypotension for which he required pressor support in the emergency room. Postoperatively, he was unable to be awakened after weaning of sedation therefore brought to the ICU. ABG showing evidence of acute hypercapnic respiratory failure, improving after being on ventilatory support. He has since woken up, remaining alert, lucid. Reviewed orthopedic documentation, reviewed vital signs, CBC, CMP. As he is doing well, he is being discharged home. He understands to return to the hospital in case of any worsening or new concerning symptoms. Suspicion of component of underlying COPD, he is asked to follow-up with primary provider for reassessment. Please refer for pulmonary function test once she is recovering from his postoperative condition. Attestations Medical Necessity Statement*: Returning home following cervical spine fusion. Diagnoses Status post cervical spinal fusion Z98.1 COPD (chronic obstructive pulmonary disease) J41.0 COPD type: chronic bronchitis Chronic bronchitis type: simple Acute hypercapnic respiratory failure J96.02
--- NOTE | 2023-06-15 10:38 | P.DS_ITS ---
Discharge Providers Date of Admission: 06/12/23 11:00 Date of Discharge: June 14, 2023 Attending Provider at Admission: Damian Fishman DO Attending Provider at Discharge: Damian Fishman DO Primary Care Provider: Siomara Anne MD Diagnoses at Discharge Discharge Diagnosis (1) Status post cervical spinal fusion: Status: Acute (2) COPD (chronic obstructive pulmonary disease): Status: Acute Qualifiers: COPD type: chronic bronchitis Chronic bronchitis type: simple Qualified Code(s): J41.0 - Simple chronic bronchitis (3) Acute hypercapnic respiratory failure: Status: Resolved Reason for Visit Reason for Visit: cerv pain Physical Exam Urinary Catheter Management: Figueroa: Cath Placed During This Visit: yes Reason for Continuing Indwelling Catheter: Accurate Measurement of Urinary Output in Critically Ill Patients Urinary Catheter Date of Insertion: 06/12/23 Urinary Catheter Time of Insertion: 08:20 Discharge Data Studies Completed and Pending Completed Studies During Hospitalization Category Date Time Status CT cervical spin wo con* [id number] Routine Cat Scan 06/12/23 10:[address] head wo con* [id number] Stat Cat Scan 06/12/23 12:02 Completed XR cervical spine 1V [id number] Routine Exams 06/12/23 11:31 Completed XR cervical spine 3V* [id number] Routine Exams 06/12/23 10:52 Completed XR chest 1V portable [id number] Routine Exams 06/12/23 14:58 Completed MR cervical spine wo [MR cervical spin wo con* [id number]] MRI 06/09/23 16:14 Completed Urgent Pending at discharge Category Date Time Status Sputum Culture and Gram Stain Stat Lab 06/12/23 14:00 Results Radiology Impressions Cervical Spine MRI 06/09/23 16:14 IMPRESSION: 1. No acute findings. 2. Degenerative changes with kyphosis of the cervical spine, as described. Mild spinal canal stenosis present C3-C6. Multilevel severe neural foraminal narrowing. Cervical Spine CT 06/12/23 10:52 IMPRESSION: No unexpected postoperative findings. Head CT 06/12/23 12:02 IMPRESSION: No acute intracranial abnormality. Diffuse paranasal sinus opacities/sinusitis. Chest X-Ray 06/12/23 14:58 IMPRESSION: 1. Endotracheal tube tip in place 5 cm above the violeta. 2. Cardiomegaly and mild pulmonary vascular congestion. 3. Small left pleural effusion. Laboratory Results WBC 13.08 10^3/uL (3.29-11.43) H 06/14/23 05:00 RBC 3.88 10^6/uL (3.85-5.65) 06/14/23 05:00 Hgb 11.30 g/dL (11.27-16.99) 06/14/23 05:00 Hct 34.8 % (37-53) L 06/14/23 05:00 MCV 89.7 fl (82-101) 06/14/23 05:00 MCH 29.1 pg (27-33) 06/14/23 05:00 MCHC 32.5 g/dL (30-55) 06/14/23 05:00 RDW 13.6 % (12.1-15.1) 06/14/23 05:00 Plt Count 410 10^3/cmm (157-399) H 06/14/23 05:00 MPV 9.3 fL (7.4-10.4) 06/14/23 05:00 Neut % (Auto) 83.4 % 06/14/23 05:00 Lymph % (Auto) 6.9 % 06/14/23 05:00 Graham % (Auto) 9.0 % 06/14/23 05:00 Eos % (Auto) 0.0 % 06/14/23 05:00 Baso % (Auto) 0.2 % 06/14/23 05:00 Neut # (Auto) 10.91 10^3/uL (1.8-7.7) H 06/14/23 05:00 Lymph # (Auto) 0.9 10^3/uL (0.8-4.8) 06/14/23 05:00 Graham # (Auto) 1.2 10^3/uL (0.2-0.9) H 06/14/23 05:00 Eos # (Auto) 0.0 10^3/uL (0.0-0.8) 06/14/23 05:00 Baso # (Auto) 0.0 10^3/uL (0.0-0.1) 06/14/23 05:00 Nucleated RBC % (auto) 0 % 06/14/23 05:00 Nucleated RBCs # 0.0 /100WBC 06/14/23 05:00 Specimen Type Arterial 06/13/23 04:05 Sample Site Brachial, right 06/13/23 04:05 ABG pH 7.42 (7.35-7.45) 06/13/23 04:05 ABG pCO2 46.2 mmHg (35-45) H 06/13/23 04:05 ABG pO2 89.0 mmHg (80.0-100.0) 06/13/23 04:05 ABG PO2/FiO2 Ratio 0 06/13/23 04:05 ABG HCO3 29.6 mmol/L (22-26) H 06/13/23 04:05 ABG Base Excess 4.3 mmol/L (-2.0-2.0) H 06/13/23 04:05 Dawson Test N/a 06/13/23 04:05 Hematocrit 39.4 % (42-52) L 06/13/23 04:05 O2 Delivery Device Vent 06/13/23 04:05 FiO2 30.0 % 06/13/23 04:05 Tidal Volume 0.50 06/13/23 04:05 PEEP 5.0 cmH20 06/13/23 04:05 Radiology Aide ID Donovan 06/13/23 04:05 Sodium 140 mmol/L (136-145) 06/14/23 05:00 Potassium 4.5 mmol/L (3.5-5.1) 06/14/23 05:00 Chloride 102 mmol/L (98-107) 06/14/23 05:00 Carbon Dioxide 27 mmol/L (22-29) 06/14/23 05:00 Anion Gap 15.5 (5-19) 06/14/23 05:00 BUN 21 mg/dL (6-20) H 06/14/23 05:00 Creatinine 0.9 mg/dL (0.7-1.2) 06/14/23 05:00 GFR Calculation 89.0 mL/min (90-130) L 06/14/23 05:00 Glucose 149 mg/dL (65-115) H 06/14/23 05:00 Calculated Osmolality 296 mOsm/kg (285-295) H 06/14/23 05:00 Calcium 8.5 mg/dL (8.5-10.5) 06/14/23 05:00 Total Bilirubin 0.3 mg/dL (0.15-1.2) 06/14/23 05:00 AST 21 U/L (0-40) 06/14/23 05:00 ALT 16 U/L (0-41) 06/14/23 05:00 Alkaline Phosphatase 83 U/L (40-130) 06/14/23 05:00 Ammonia 56 umol/L (16-60) 06/13/23 10:30 Troponin T Baseline 9 ng/L (0-15) 06/12/23 18:20 Troponin T 120 Minute 10.25 ng/L (0-15) 06/12/23 20:43 Delta Troponin T 1.25 ABS# (0-10) 06/12/23 20:43 Troponin T Hi Sens 6Hr 10.36 ng/L (0-15) 06/12/23 01:10 Troponin T Hi Sens 6Hr Delta 1.36 ng/L (0-12) 06/12/23 01:10 NT-Pro-B Natriuret Pep 36 pg/mL (0-125) 06/12/23 18:20 Total Protein 6.3 g/dL (6.6-8.7) L 06/14/23 05:00 Albumin 3.4 g/dL (3.5-5.2) L 06/14/23 05:00 Globulin 2.9 g/dL (1.3-4.6) 06/14/23 05:00 TSH 0.81 uIU/mL (0.27-4.20) 06/13/23 04:53 Nasal Influ A H1 2008 PCR Not detected (NOT DETECT) 06/12/23 15:00 Adenovirus (PCR) Not detected (NOT DETECT) 06/12/23 15:00 C. pneumoniae DNA (PCR) Not detected (NOT DETECT) 06/12/23 15:00 Coronavirus 229E (PCR) Not detected (NOT DETECT) 06/12/23 15:00 Human Metapneumovir PCR Not detected (NOT DETECT) 06/12/23 15:00 Influenza A (H1) PCR Not detected (NOT DETECT) 06/12/23 15:00 Influenza A (H3) PCR Not detected (NOT DETECT) 06/12/23 15:00 Influenza Type A (PCR) Not detected (NOT DETECT) 06/12/23 15:00 Influenza Type B (PCR) Not detected (NOT DETECT) 06/12/23 15:00 M. pneumoniae (PCR) Not detected (NOT DETECT) 06/12/23 15:00 Parainfluenza 1 (PCR) Not detected (NOT DETECT) 06/12/23 15:00 Parainfluenza 2 (PCR) Not detected (NOT DETECT) 06/12/23 15:00 Parainfluenza 3 (PCR) Not detected (NOT DETECT) 06/12/23 15:00 Parainfluenza 4 (PCR) Not detected (NOT DETECT) 06/12/23 15:00 RSV Type A (PCR) Not detected (NOT DETECT) 06/12/23 15:00 RSV Type B (PCR) Not detected (NOT DETECT) 06/12/23 15:00 Entero/Rhino (PCR) Not detected (NOT DETECT) 06/12/23 15:00 SARS-CoV-2 (PCR) Not detected (NOT DETECT) 06/12/23 15:00 Vitals Last Vital Signs Temp 98.2 F 06/14/23 08:00 Pulse 79 06/14/23 10:00 Resp 15 06/14/23 10:00 BP 107/79 06/14/23 10:00 Pulse Ox 99 06/14/23 10:00 O2 Del Method Room Air 06/14/23 08:44 O2 Flow Rate 2 06/14/23 02:00 FiO2 30 06/13/23 09:07 Discharge Plan Discharge Patient Disposition: Home Condition: Stable Prescriptions: New hydrocodone-acetaminophen 10-325 mg Tablet 1 tab PO Q4H PRN (Reason: Post Operative Neck Pain) Qty: 40 0RF Continued pregabalin 100 mg capsule 100 mg PO TID 30 Days Qty: 90 0RF baclofen 20 mg tablet 20 mg PO TID Qty: 90 0RF albuterol sulfate [ProAir HFA] 90 mcg/actuation HFA aerosol inhaler 2 puff INHALATION QID PRN (Reason: shortness of breath or wheezing) 30 Days Qty: 18 5RF atorvastatin 20 mg tablet 20 mg PO .daily in evening 90 Days Qty: 90 3RF duloxetine 20 mg capsule,delayed release(DR/EC) 20 mg PO BID 90 Days Qty: 180 1RF metoprolol succinate 25 mg tablet extended release 24 hr 25 mg PO DAILY 90 Days Qty: 90 1RF pantoprazole 20 mg tablet,delayed release (DR/EC) 20 mg PO DAILY 90 Days Qty: 90 3RF spironolactone 50 mg tablet 50 mg PO DAILY 90 Days Qty: 90 1RF tamsulosin [Flomax] 0.4 mg capsule 0.4 mg PO DAILY 90 Days Qty: 90 1RF Hold Instructions: while on paxlovid clotrimazole 1 % cream 1 applic topical BID 14 Days Qty: 45 1RF Rx Instructions: to groin (DME) CERVICAL SPINE COLLAR See Rx Instructions .Route .MEDSUPPLY Qty: 1 0RF Rx Instructions: As directed Discharge Orders: Discharge Order (Routine); Ordered 06/14/23 Ordered By: Wilman Sky Referrals: Siomara Anne MD [Primary Care Provider] - 06/16/23 11:00 am Discharge Diet: Advance as tolerated Discharge Activity: Limit activity as instructed Patient Instructions: Hydrocodone/Acetaminophen (By mouth) (Vicodin, [place], Lortab), [place] Collar (DC), Spondylolisthesis (GEN), Opioid Safety Activity Restrictions/Additional Instructions: Thank you for choosing [facility] for your care! The following is a list of instructions, from your provider, to follow upon your discharge to ensure you have the optimal recovery from your recent injury or surgery. Anterior Cervical Discectomy and Fusion: What to Expect at Home Your Recovery Follow-up care is a yee part of your treatment and safety. Be sure to make and go to all appointments, and call your doctor if you are having problems. If you do not already have a follow-up appointment made, call office in the next 1-3 days to make follow up appointment for 1-2 weeks at [phone]. It is also a good idea to know your test results and keep a list of the medicines you take. You can expect your neck to feel stiff or sore after surgery. This should improve in the weeks after surgery. But it may take 4 to 6 months for you to get better completely. You may have trouble sitting or standing in one position for very long and may need pain medicine in the weeks after your surgery. It may take 4 to 6 weeks to get back to your usual activities, but it may depend on what kind of surgery you had. Your throat will feel sore and it may be difficult to swallow for the first 3 days after your surgery. As long as you can get liquids down without difficulty, this should slowly improve, otherwise call our office or seek medical attention if it becomes increasingly difficult to get anything down including liquids. Avoid hot liquids for first 3-5 days. Soothing foods/liquids such as jello, pudding, and luke warm soups are recommended until swallowing improves. Staying elevated will also help, it's advised you keep propped up at while sleeping to help reduce the swelling. You may use an ice pack directly on your incision or around it on the front of your neck, using a cloth to protect your skin; and a heating pad to the back of your neck as needed. Do not use over the counter anti-inflammatory medications (Ibuprofen, Motrin, Aleve, Advil, etc) Taking these meds after having a fusion can delay fusion rates, we recommend you avoid them for the first 3 months after your surgery[address] Dr. Fishman may advise you to work with a physical therapist to strengthen the muscles around your neck and back - this will be discussed at your follow - up appointments. The pain or numbness you were having in your arms before surgery should get better or go away completely. This care sheet gives you a general idea about how long it will take for you to recover. But each person recovers at a different pace. Follow the steps below to get better as quickly as possible. How can you care for yourself at home? Activity ? Rest when you feel tired. Getting enough sleep will help you recover. ? Try to walk each day. Start by walking a little more than you did the day before. Bit by bit, increase the amount you walk. Walking boosts blood flow and helps prevent pneumonia and constipation. Walking may also decrease your muscle soreness after surgery. ? No lifting anything that is more that 5 pounds. This may include heavy grocery bags and milk containers, a heavy briefcase or backpack, cat litter or dog food bags, a child, or a vacuum shoe cleaner. ? Avoid strenuous activities, such as bicycle riding, jogging, weightlifting, or aerobic exercise, until your doctor says it is okay. ? Do not drive until your follow-up visit after your surgery, or until your doctor says it isokay. ? Avoid taking long car trips for 2 to 4 weeks after surgery. Your neck may become tired and painful from sitting too long in one position. ? You will probably need to take 4 to 6 weeks off from work. It depends on the type of work you do and how you feel. ? You may have sex as soon as you feel able, but avoid positions that put stress on your neck or cause pain. Diet ? You can eat your normal diet. If your stomach is upset, try bland, low-fat foods like plain rice, broiled chicken, toast, and yogurt ? Drink plenty of fluids. If you have kidney, heart, or liver disease and have to limit fluids, talk with your doctor before you increase the amount of fluids you drink. ? You may notice that your bowel movements are not regular right after your surgery. This is common. Try to avoid constipation and straining with bowel movements. You may want to take a fiber supplement every day. If you have not had a bowel movement after a couple of days, ask your doctor about taking a mild laxative. Medicines ? Take pain medicines exactly as directed. 1. If Dr. Fishman gave you a prescription medicine for pain, take lt as prescribed. 2. Do not take two or more pain medicines at the same time unless the doctor told you to. Many pain medicines have acetaminophen, which is Tylenol. Too much acetaminophen {Tylenol) can be harmful. 3. If you think your pain pill is making you sick to your stomach: 4. Take your pills after meals (unless your doctor has told you not to). 5. Ask your Dr. for a different pain pill. Incisioncare ? Remove your dressing 48 hours after your surgery. Ok to shower and get the incision wet. Do not overtly wash your incision. When done, pad dry, leave open to air thereafter. Avoid creams and ointments directly on your incision. ? Your sutures in the incision will dissolve and fall out on their own. ? Keep the area clean and dry. You may cover it with a gauze bandage if it weeps or rubs against clothing; if you choose to do this, change the dressing everyday. Other instructions ? Use a heating pad, hot water bottle, or gentle massage on your back to reduce stiffness. Avoid putting heat on your incision When should you call for help? ? Call 911 anytime you think you may need emergency care. For example, call if: ? You pass out (lose consciousness). ? You have sudden chest pain and shortness of breath, or you cough upblood. ? You cannot swallow. ? You have severe pain in your neck or back. ? Call your Dr. or seek immediate medical care if: ? You have pain that does not get better after you take pain pills. ? You have loose stitches, or your incision comes open. ? You have blood or fluid draining from the incision. ? You have signs of infection, such as: 1. Increased pain, swelling, warmth, or redness. 2. Red streaks leading from the site. 3. Pus draining from the site. 4. Swollen lymph nodes in your neck or armpits. 5. A fever. ? You have severe pain in your arms. ? You have new or increased weakness or numbness in your arms. ? Watch closely for any changes in your health, and be sure to contact your doctor if: ? You do not have a bowel movement after taking a laxative. Discharge Attestations Time Spent in Discharge Care*: less than 30 min Quality Metrics Clinical Quality Measures [ No reported AMI, CVA or VTE this stay] Coding Level of Care Code Acute Code for Chg Fwd Diagnoses Status post cervical spinal fusion Z98.1 COPD (chronic obstructive pulmonary disease) J41.0 COPD type: chronic bronchitis Chronic bronchitis type: simple Acute hypercapnic respiratory failure J96.02
== END 2023-06-14 11:10 | disposition home or self-care (01) | DRG 471 ==
LOC: MEDSURG 06-12 12:56 → ICU 06-12 12:56
PROVIDERS: Physician Assistant; Student in an Organized Health Care Education/Training Program; Admitting Provider Orthopaedic Surgery; PCP Family Medicine; Visit Provider Orthopaedic Surgery
PROC: 0RB30ZZ Excision of Cervical Vertebral Disc, Open Approach (ICD-10-PCS; CPT 22551; principal; 2023-06-12 08:00)
DX: M47.12 Other spondylosis with myelopathy, cervical region (principal); J96.02 Acute respiratory failure with hypercapnia; M47.22 Other spondylosis with radiculopathy, cervical region; F17.200 Nicotine dependence, unspecified, uncomplicated; F17.220 Nicotine dependence, chewing tobacco, uncomplicated; J32.9 Chronic sinusitis, unspecified; Z86.73 Personal history of transient ischemic attack (TIA), and cerebral infarction without residual deficits; E78.2 Mixed hyperlipidemia; I10 Essential (primary) hypertension; I95.81 Postprocedural hypotension; Z11.52 Encounter for screening for COVID-19; Z86.16 Personal history of COVID-19; J41.0 Simple chronic bronchitis
CPT/HCPCS: 36415; 36600; 51702; 70450; 71045; 72020; 72040; 72125; 72141; 76000; 80048; 80053; 82140; 82803; 83880; 84443; 84484; 85025; 87070; 87077; 87205; 87486; 87581; 87633; 93005; 94002; 94003; 94640; 94799; 96376; 97110; 97161; 97530; C1713; C1763; C9359; G0378; G0379; J0330; J1100; J1885; J1940; J2250; J2270; J2371; J2405; J2704; J3010; J3370; J3490; J7050; J7120; J7613; J7626

== ENCOUNTER → 2023-06-16 11:50 | Outpatient (BNVA) | payer MEDICAID, SELFPAY | PROVIDERS: PCP Family Medicine; Visit Provider Family Medicine | DX: R09.89 Other specified symptoms and signs involving the circulatory and respiratory systems (principal); M54.12 Radiculopathy, cervical region | CPT/HCPCS: 71046 ==

== ENCOUNTER → 2023-06-22 08:35 | Outpatient (BNVA) | payer MEDICAID, SELFPAY | PROVIDERS: PCP Family Medicine; Visit Provider Orthopaedic Surgery | DX: Z98.1 Arthrodesis status (principal); Z47.89 Encounter for other orthopedic aftercare | CPT/HCPCS: 99024 ==

== ENCOUNTER → 2023-06-30 11:23 | Outpatient (BNVA) | payer MEDICAID, SELFPAY | PROVIDERS: PCP Family Medicine; Visit Provider Family Medicine | DX: M25.511 Pain in right shoulder (principal) | CPT/HCPCS: 73030 ==

== ENCOUNTER → 2023-07-15 08:59 | Outpatient (BNVA) | payer MEDICAID, SELFPAY | PROVIDERS: PCP Family Medicine; Visit Provider Orthopaedic Surgery | DX: Z98.1 Arthrodesis status (principal); Z47.89 Encounter for other orthopedic aftercare | CPT/HCPCS: 72040; 99024 ==

== ENCOUNTER 2023-07-29 13:25 | Outpatient (CLI) | payer MEDICAID, SELFPAY ==
--- NOTE | 2023-07-29 14:30 | MR_ITS ---
WS: [id number] MRI RIGHT SHOULDER NONCONTRAST TECHNIQUE: Sagittal T2, coronal T1, T2 and proton density imaging. Axial gradient PDE imaging. CLINICAL INFORMATION: M25.511 - Pain in right shoulder COMPARISON: None. FINDINGS: Moderate to advanced arthritis AC joint with small amount of fluid. Subacromial space is preserved. Chronic thinning of the distal supraspinatus appears intact. Tendinopathy intra-articular biceps tend on. High-grade tear infraspinatus with partial tendon retraction. Fluid and edema within the myotendi nous junction. Edema within the infraspinatus muscle. Teres minor appears intact. Subscapularis tendo n appears intact. Biceps tendon appears intact within the bicipital groove. Small amount of subacromial and subdeltoid fluid. Moderate degenerative narrowing of the glenohumeral articulation. Degenerative fraying of the glenoid labrum. IMPRESSION: 1. Moderate to advanced arthritis AC joint with fluid and edema. 2. High-grade tear infraspinatus with fluid and edema in the myotendinous junction with partial tend on retraction. Fluid and edema in the muscle belly. 3. Rotator cuff is otherwise intact. 4. Tendinopathy intra-articular biceps tendon. 5. Biceps tendon intact within the bicipital groove.
== END 2023-07-29 13:26 | disposition home or self-care (01) ==
LOC: RAD 13:25
PROVIDERS: PCP Family Medicine; Visit Provider Family Medicine
DX: S46.011A Strain of muscle(s) and tendon(s) of the rotator cuff of right shoulder, initial encounter (principal); W55.89XA Other contact with other mammals, initial encounter; M19.011 Primary osteoarthritis, right shoulder
CPT/HCPCS: 73221

== ENCOUNTER → 2023-08-20 11:03 | Outpatient (BNVA) | payer MEDICAID, SELFPAY | PROVIDERS: PCP Family Medicine; Referring Provider Family Medicine; Visit Provider Student in an Organized Health Care Education/Training Program | DX: M75.101 Unspecified rotator cuff tear or rupture of right shoulder, not specified as traumatic (principal); M75.41 Impingement syndrome of right shoulder; M75.21 Bicipital tendinitis, right shoulder; S49.91XA Unspecified injury of right shoulder and upper arm, initial encounter; M19.011 Primary osteoarthritis, right shoulder; X58.XXXA Exposure to other specified factors, initial encounter | CPT/HCPCS: 99204 ==

== ENCOUNTER 2023-10-20 08:35 | Day surgery (SDC) | payer MEDICAID, SELFPAY ==
[2023-10-20] VITALS (7 sets, daily range): BP systolic 94–145; BP diastolic 57–91; PULSE 58–72; RESP 18; TEMP 36.1; O2SAT 94–100; BMI 28.1
[2023-10-20] MEDS: acetaminophen 1,000 MG/100 ML PIGGYBACK 400 MG IV (09:18)
[2023-10-20] MEDS: ketorolac 30 mg/mL INJ IVP (09:18)
[2023-10-20] MEDS: sodium chloride 0.9% 1,000 ML 30 ML IV (09:19)
[2023-10-20] MEDS: scopolamine 1.5 Patch 1 PATCH TRANSDERMA (09:19)
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
--- NOTE | 2023-10-20 09:46 | ANES.PROC ---
Anesthesia Procedures Procedure/Date: 10/20/23 Nerve Block ^: Nerve Block 1: Main Anesthesia: general anesthesia Time Out Performed: Yes Consent: requested by attending/covering physician, from patient, from other, risks and benefits reviewed and patient agrees to proceed Nerve block location: interscalene (R) Anesthesia monitors applied: pulse oximetry, EKG, BP cuff and oxygen Nerve block position: semi sitting Anesthetic Used: ropivicaine 0.5% (20 ml) and with decadron (4 mg) Ultrasound used to: recognize landmarks, visualize and ID brachial plexus, in supraclavicular region and visualize and ID interscalene groove Nerve Stimulator Used?: No Interscalene/Femoral BLK: 2 stimuplex 22 g needle used for position and inplane approach, visualize local anesthetic spread and no vascular puncture identified Injection: neg aspiration of heme Patient Tolerated Procedure: well Complications: none
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
[2023-10-20] MEDS: clindamycin 600 MG/50 ML PREMIX 60 MG IV (10:00)
[2023-10-20] MEDS: EPINEPHrine 1 mg/mL INJ 2 MG (10:49)
--- NOTE | 2023-10-20 12:07 | W.PM.BPON ---
Date of Procedure: 10/20/2023 Surgeon: Cj Restrepo DO Microstrategy Bi Developer(s): Galindo Restrepo PA-C Procedure(s) performed: Right shoulder diagnostic and surgical arthroscopy with bicep tenodesis Right shoulder diagnostic and surgical arthroscopy with removal loose body Right shoulder diagnostic and surgical arthroscopy with labral debridement Right shoulder diagnostic and surgical arthroscopy with subscapularis tendon repair Right shoulder diagnostic and surgical arthroscopy with AC joint resection (distal clavicle excision) Right shoulder diagnostic and surgical arthroscopy with subacromial decompression (bursectomy and acromioplasty) Right shoulder diagnostic and surgical arthroscopy with rotator cuff repair (infra spinatus tendon repair)?medium size repair Findings of the procedure(s): Patient was found to have superior labral tear as well as bicep tendon tear, loose body, subscapularis upper border tendon tear, AC joint arthritis, subacromial impingement and a medium sized rotator cuff tear of the infraspinatus tendon underwent procedure as planned without any issues or complications Estimated blood loss: 1 mL Specimen(s) removed: None Post-operative diagnosis: Right shoulder biceps tendinitis, SLAP tear, loose body, labral tearing, subscapularis upper border tendon tear, infraspinatus rotator cuff tendon tear, AC joint arthritis, subacromial impingement
--- NOTE | 2023-10-20 12:23 | P.OP_ITS ---
Operative Report Date of procedure: October 20, 2023 Surgeon: Cj Restrepo DO Quality Assurance Assessor: Galindo Restrepo PA-C: FERNIE was necessary for assistance in this case with shoulder positioning to execute the procedure, assistance with instrumentation, as well as implant fixation when necessary, assist with wound closure and dressing application. Procedure: Preoperative diagnosis: Right shoulder rotator cuff tear, subacromial impingement, AC joint arthritis, biceps tendinitis Post-op diagnosis: Right shoulder labral tearing Right shoulder long head bicep tendon tear Right shoulder subscapularis tendon tear Right shoulder supraspinatus tendon tear Right shoulder AC joint arthritis Right shoulder subacromial bursitis/impingement Right shoulder loose body Procedure done: Right shoulder diagnostic and surgical arthroscopy with biceps tenodesis Right shoulder diagnostic and surgical arthroscopy with subscapularis tendon repair Right shoulder diagnostic and surgical arthroscopy with labral debridement Right shoulder diagnostic and surgical arthroscopy with acromioclavicular joint resection (distal clavicle excision) Right shoulder diagnostic and surgical arthroscopy with subacromial deco mpression (bursectomy and acromioplasty) Right shoulder diagnostic and surgical arthroscopy with Infraspinatus rotator cuff repair (medium) Right shoulder diagnostic and surgical arthroscopy with loose body removal Surgeon: Cj Restrepo DO Estimated blood loss: 1mL IV fluids: See anesthesia record Implants: Arthrex 4.75 swivel lock x3 Arthrex scorpion and suture tape Bicep tenodesis loop and tack Arthrex kit Complications: None Condition: stable Disposition: same day Brief History: Patient been seen and worked up in the outpatient setting for right shoulder pain.? Pt had an MRI which showed findings below.? Patient's failed conservative treatment. We talked about treatment options far as nonoperative and operative intervention..? We talked about risk benefits complication alternatives surgical nonsurgical treatment options.? Understanding risk of surgery pt agrees to proceed with surgical intervention.? All questions have been answered at this time.? Patient elects proceed with surgery and consent obtained in office. IMPRESSION: 1. Moderate to advanced arthritis AC joint with fluid and edema. 2. High-grade tear infraspinatus with fluid and edema in the myotendinous junction with partial tendon retraction. Fluid and edema in the muscle belly. 3. Rotator cuff is otherwise intact. 4. Tendinopathy intra-articular biceps tendon. 5. Biceps tendon intact within the bicipital groove. Procedure: Patient seen evaluated in the preoperative holding area.? Consent reviewed and signed with patient.? Once again reviewed patient's MRI results as well as? planned surgical intervention.? Correct extremity marked.? Patient seen evaluated by anesthesia department received regional anesthesia.? Once ready for surgery was taken back to the operative suite.? Patient then subsequently underwent anesthesia per the anesthesia department was transported onto the OR table.? Patient was then placed into a lateral decubitus position with a beanbag and was appropriately secured to the bed.? All bony prominences well-padded.? Patient then had the right upper extremity was then prepped and draped in standard orthopedic fashion.? Patient received appropriate preoperative antibiotics.? Final timeout performed. The right upper extremity was then held in hanging from traction utilizing sterile technique.? Next started with standard diagnostic and surgical arthroscopy with posterior portal position introduced arthroscope into the glenohumeral joint.? Visualized the glenohumeral joint I then introduced a spinal needle within the rotator?cuff?interval to confirm appropriate anterior portal placement.? Once this was confirmed I then made my small incision and then introduced my arthroscopic shaver into the glenohumeral joint.? After thorough debridement, patient was confirmed to having a long head of biceps tendon tear. After flushing the joint fluid, was clearly evident patient had biceps tendon tearing as well as Superior labral tear and longitudinal split of the tear in the intertubercular groove. Patient had appreciable unstable biceps anchor most pronounced in the superior labrum. Given there appears to be healthy intra- articular tendon plan was for an intra-articular biceps tenodesis at the superior portion as it enters the intertubercular groove. Thermal wand introduced into the rotator interval. I then release of the rotator interval to have appropriate visualization and the ability to perform biceps tenodesis. At this point I established a purple passport cannula which was introduced. Next I performed an Arthrex loop and tap biceps tenodesis. Passer was then made around the tendon luggage tag stitch around and then thru the tendon and around twice I then utilized a thermal wand to release the biceps tendon at the anchor to perform with tenotomy. Next I evaluated the subscapularis tendon which was significant tearing of the upper 1/3 of subscapularis tendon as a result elected for subscapularis tendon repair. I then subsequently introduced an Arthrex scorpion loaded with a link suture. I subsequently had initial purchase of the majority of the upper third of the subscapularis. Prior to this I did utilize thermal wand to open up the rotator interval as well as to bluntly release any adhesions off the anterior aspect of the subscapularis tendon for appropriate isolated capture of just the subscapularis. Once again I subsequently luggage tag with suture and made 2 more additional passes to the subscapularis tendon had excellent purchase through the tendon. I then loaded with suture from both the long head of the bicep tendon as well as subscapularis tendon suture to perform my repair into 1 anchor and these were subsequently loaded onto an Arthrex 4.75 swivel lock suture anchor. A punch was then placed in appropriate position at the entry point into the intertubercular groove just superior to the subscapularis tendon. Punch was then introduced to the appropriate depth. The suture loaded on the swivel lock was then advanced held under appropriate tension and shoulder lock anchor was then advanced and had excellent fixation. Excess suture was then cut biceps tenodesis and subscapularis tendon repair was complete. I then utilized a thermal wand to seal the edges of the superior labrum. ?Next there was significant labral tearing circumferential.? ? I then subsequently utilized a a arthroscopic shaver and thermal wand to perform a labral debridement.? This point time I then visualized the glenohumeral joint.? The glenohumeral joint was found to have grade 1-2? chondromalacia throughout.? Infrapatellar pouch was free of loose bodies from viewing the posterior portal.? Superiorly and anteriorly there was a loose body at the anterior superior labral junction I utilized a arthroscopic tissue grasper and removed this to its entirety. This measured just roughly less than 1 cm. Next a visualized the rotator?cuff?superiorly and there was found to be a tear in the infraspinatus tendon.? I utilized a spinal needle to chaya this location.?? This completed my work within the glenohumeral joint all fluid was suctioned free of the joint.? ?Next I reintroduced the arthroscope posteriorly.? And went to the subacromial space.? I established my lateral working portal at the site of which my spinal needle was marking of the rotator?cuff?tear.? Thermal wand was then introduced laterally and then I subsequently performed extensive bursectomy of the subacromial space.? Patient had a large anterior bone spur.? At this point time I proceeded with my AC joint resection thermal wand was used and track to the anterior edge of the acromion and then tracked all the way to the AC joint.? Once identified the AC joint this was very arthritic in nature.? Thermal wand was placed anteriorly to establish appropriate plane for AC joint resection.? Once appropriate margins and anterior inferior and anterior capsule was released I then introduced arthroscopic shaver and a bur and performed AC joint resection of both the acromion to cope plane at the AC joint and a distal clavicle resection was then performed totaling 1 cm in size and was confirmed.? This completed my AC joint resection and I then introduced the arthroscopic shaver laterally while continuing to view posteriorly.? I then performed an acromioplasty to complete my subacromial decompression prior to fixing the rotator?cuff?tear.? Next the arthroscopic shaver was then used previous spinal needle spot that is marked the small hole in the rotator?cuff?this was consistent with a full- thickness tear.? Tear was medium in size requiring a single medial row and a single lateral row anchor repair. I made an accessory portal utilizing a spinal needle to have a man's angle directly perpendicular to the medial footprint. I subsequently prepped and decorticated the rotator cuff footprint with a ring curette as well as with arthroscopic shaver. I then subsequently punched and placed a 4.75 swivel lock loaded with 4 Arthrex suture tapes. These were subsequently left out of the accessory portal and then subsequently retrieved and passed for individual passes of the suture tape. These were then loaded into my lateral row anchor with a single 4.75 swivel lock. I cleared off the lateral aspect of the greater tuberosity and then subsequently placed by punch and then loaded the 4.75 swivel lock with the 4 rotator cuff suture tapes appropriately tensioned these with care not to over tension and then subsequently malleted the eyelet with appropriate tension maintained and then subsequently secured the 4.75 swivel lock with excellent purchase and fixation. Sutures were then cut with an arthroscopic suture cutter and subsequently evaluated the rotator?cuff?repair.??Repair?was found to be satisfactory shoulder was taken through range of motion and the?repair?moved as a unit with no evidence of loss of fixation. ?I then switched the arthroscope to the lateral portal to confirm this tension-f ree?repair.? I took the shoulder through range of motion and the rotator?cuff?repair?was stable and moved as a unit. ?Next I then introduced the arthroscopic shaver posteriorly to complete my subacromial decompression appropriate complaining all the way up to the lateral edge of the acromion. This completed the surgery.? All fluid was suctioned from the shoulder.? All instruments were removed.? The lateral incision was then closed with nylon stitches.? As well as the portal sites closed with portal nylon stitches.? Xeroform 4 x 4's ABD and tape was then applied to the right shoulder and was placed into a shoulder abduction pillow sling for rotator?cuff?repair.? Patient was then awakened from anesthesia and then taken back to PACU in stable condition.? Patient tolerated procedure without any issues. Disposition: Patient taken back in stable condition recovering well.? Dressings on in place clean dry and intact.? Will be nonweightbearing to the right upper extremity.? Follow rotator?cuff?repair?protocol.? Patient to follow-up with me in the office in 2 weeks.? Patient will receive appropriate discharge instruction as well as pain medication postoperatively.? All questions answered. ? We will contact the office for any questions or concerns.
--- NOTE | 2023-10-20 12:29 | PM.PACU ---
PACU note Narrative: Patient is a 53-year-old male just underwent right shoulder arthroscopy with rotator cuff repair. Patient transferred to PACU in stable condition. Pain is well controlled. shoulder Dressing on , dry and in place. Patient's operative arm is in a shoulder immobilizer. Patient is awake and alert and able to respond to my questions accordingly. Patient's fingers are warm with good perfusion. Normal cap refill under 2 seconds. Unable to assess further range of motion in arm due to sling. sensation to hand intact. Exam: somnolent, arousable Disposition: discharged
--- NOTE | 2023-10-20 15:00 | ANE.PACU2 ---
Inpatient post-anesthesia follow up: Airway intact: Yes Vital signs: Temperature 97.0 F Pulse Rate 65 Respiratory Rate 18 Blood Pressure 145/57 Pulse Oximetry 94 Oxygen Delivery Me thod Room Air Oxygen Flow Rate Fraction of Inspir ed Oxygen Hydration adequate: Yes Nausea and vomiting: No Pain level: 1 Mental status: Baseline
== END 2023-10-20 15:00 | disposition home or self-care (01) ==
PROVIDERS: PCP Family Medicine; Visit Provider Student in an Organized Health Care Education/Training Program
PROC: (CPT 29805; principal; 2023-10-20 10:25)
PROC: (CPT 29827; 2023-10-20 10:25)
PROC: (CPT 29826; 2023-10-20 10:25)
PROC: (CPT 24310; 2023-10-20 10:25)
PROC: 0RSG0ZZ Reposition Right Acromioclavicular Joint, Open Approach (ICD-10-PCS; CPT 23120; 2023-10-20 10:25)
DX: M75.101 Unspecified rotator cuff tear or rupture of right shoulder, not specified as traumatic (principal); S46.111A Strain of muscle, fascia and tendon of long head of biceps, right arm, initial encounter; X58.XXXA Exposure to other specified factors, initial encounter; M19.011 Primary osteoarthritis, right shoulder; M25.811 Other specified joint disorders, right shoulder; M24.011 Loose body in right shoulder; E78.2 Mixed hyperlipidemia; I10 Essential (primary) hypertension; Z86.73 Personal history of transient ischemic attack (TIA), and cerebral infarction without residual deficits
CPT/HCPCS: 23120; 29822; 29827; 29828; C1713; J0131; J0171; J1100; J1885; J2250; J2405; J2704; J2710; J2795; J3010; J3490; J7030

== ENCOUNTER → 2023-11-09 09:48 | Outpatient (BNVA) | payer MEDICAID, SELFPAY | PROVIDERS: PCP Family Medicine; Visit Provider Student in an Organized Health Care Education/Training Program | DX: Z98.890 Other specified postprocedural states | CPT/HCPCS: 99024 ==

== ENCOUNTER 2023-12-15 13:28 | Emergency (ER) | payer MEDICAID, SELFPAY ==
[2023-12-15 13:30] VITALS: BP 114/69; PULSE 71; RESP 18; TEMP 36.7; O2SAT 97; BMI 28.1
[2023-12-15 14:20] VITALS: BP 129/80; O2SAT 96
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
--- NOTE | 2023-12-15 14:29 | XR_ITS ---
WS: [id number] Right shoulder, 3 views, 12/15/2023 Clinical Data: pain Comparison: Right shoulder, 06/30/2023 Findings: No fractures or dislocations are seen. The AC joint is normal. The adjacent right clavicle, right sca pula and ribs are normal. The soft tissues are unremarkable. There is an anterior cervical disc fusion. XR/XR shoulder RT min 2V* [id number] Impression: Negative right shoulder.
--- NOTE | 2023-12-15 14:29 | XR_ITS ---
WS: [id number] Portable AP upright chest, 12/15/2023 Clinical Data: cough Comparison: Two-view chest, 06/16/2023 Findings: No nodules, masses or effusions are seen. The heart is normal. The pulmonary vascularity is not increased. No pneumonia or pneumothorax is seen. There is an anterior cervical disc fusion. 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 XR/XR chest 1V portable [id number] Impression: Negative chest.
[2023-12-15] MEDS: ketorolac 30 mg/mL INJ IM (14:45)
[2023-12-15] MEDS: HYDROcodone-acetaminophen 10-325 mg Tablet 1 TAB PO (14:45)
[2023-12-15 14:59] LABS: Basophils # 0.1 10^3/uL (0.0-0.1); Basophils % 1.7 %; Eosinophils # 0.6 10^3/uL (0.0-0.8); Eosinophils % 12.1 %; Hematocrit 40.9 % (37-53); Lymphocytes # 1.1 10^3/uL (0.8-4.8); Lymphocytes % 22.1 %; Mean Corpuscular HGB Conc 33.3 g/dL (30-55); Mean Corpuscular Hemoglobin 29.6 pg (27-33); Mean Corpuscular Volume 88.9 fl (82-101); Mean Platelet Volume 8.6 fL (7.4-10.4); Monocytes # 0.5 10^3/uL (0.2-0.9); Monocytes % 10.2 %; Neutrophils # 2.58 10^3/uL (1.8-7.7); Neutrophils % 53.7 %; Nucleated Red Blood Cells % 0 %; Platelet Count 379 10^3/cmm (157-399); Red Cell Distribution Width 13.3 % (12.1-15.1)
[2023-12-15 15:17] LABS: Alanine Aminotransferase 19 U/L (0-41); Albumin Level 3.9 g/dL (3.5-5.2); Alkaline Phosphatase 105 U/L (40-130); Anion Gap 13.5 (5-19); Aspartate Amino Transferase 17 U/L (0-40); Blood Urea Nitrogen 21 mg/dL (6-20); Calcium 8.3 mg/dL (8.5-10.5); Carbon Dioxide 26 mmol/L (22-29); Chloride 102 mmol/L (98-107); Creatinine Clr Calc Pharmacy 110.4871; Glomerular Filtration Rate 101.5 mL/min (90-130); Glucose 107 mg/dL (65-115); Osmolality Calculated 287 mOsm/kg (285-295); Potassium 4.5 mmol/L (3.5-5.1); Sodium 137 mmol/L (136-145); Total Bilirubin 0.2 mg/dL (0.15-1.2); Total Protein 6.9 g/dL (6.6-8.7)
[2023-12-15 15:30] VITALS: BP 131/88; PULSE 59; RESP 16; O2SAT 94
[2023-12-15 16:01] VITALS: BP 131/88; PULSE 56; RESP 16; O2SAT 96
[2023-12-15 16:45] LABS: Adenovirus Not Detected (NOT DETECT); Chlamydia Pneumoniae Not Detected (NOT DETECT); Coronavirus 229E,HKU1,NL63,OC4 Not Detected (NOT DETECT); Human Metapneumovirus Not Detected (NOT DETECT); Human Rhinovirus/Enterovirus Not Detected (NOT DETECT); Influenza A Not Detected (NOT DETECT); Influenza A H1 Not Detected (NOT DETECT); Influenza A H1-2009 Not Detected (NOT DETECT); Influenza A H3 Not Detected (NOT DETECT); Influenza B Not Detected (NOT DETECT); Mycoplasma Pneumoniae Not Detected (NOT DETECT); Parainfluenza Virus Type 1 Not Detected (NOT DETECT); Parainfluenza Virus Type 2 Not Detected (NOT DETECT); Parainfluenza Virus Type 3 Not Detected (NOT DETECT); Parainfluenza Virus Type 4 Not Detected (NOT DETECT); Respiratory Syncytial Virus A Not Detected (NOT DETECT); Respiratory Syncytial Virus B Not Detected (NOT DETECT); SARS-COV-2 Not Detected (NOT DETECT)
== END 2023-12-15 16:16 | disposition home or self-care (01) ==
PROVIDERS: Emergency Provider Nurse Practitioner Family; PCP Family Medicine
DX: M25.511 Pain in right shoulder (principal); J40 Bronchitis, not specified as acute or chronic; E78.2 Mixed hyperlipidemia; I10 Essential (primary) hypertension; Z86.73 Personal history of transient ischemic attack (TIA), and cerebral infarction without residual deficits; F17.220 Nicotine dependence, chewing tobacco, uncomplicated
CPT/HCPCS: 36415; 71045; 73030; 80053; 85025; 87486; 87581; 87633; 96372; 99284; J1885

== ENCOUNTER → 2024-01-04 12:58 | Outpatient (BNVA) | payer MEDICAID, SELFPAY | PROVIDERS: PCP Family Medicine; Visit Provider Student in an Organized Health Care Education/Training Program | DX: Z98.890 Other specified postprocedural states (principal) | CPT/HCPCS: 99213 ==

== ENCOUNTER → 2024-06-29 10:57 | Outpatient (BNVA) | payer MEDICAID, SELFPAY | PROVIDERS: PCP Family Medicine; Visit Provider Physician Assistant | DX: Z98.890 Other specified postprocedural states (principal) | CPT/HCPCS: 99213 ==

== ENCOUNTER → 2024-10-06 14:36 | Outpatient (BNVA) | payer MEDICAID, SELFPAY | PROVIDERS: PCP Family Medicine; Referring Provider Family Medicine; Visit Provider Family Medicine | DX: M54.12 Radiculopathy, cervical region (principal); Z98.1 Arthrodesis status | CPT/HCPCS: 72040 ==

== ENCOUNTER → 2024-10-17 13:58 | Outpatient (BNVA) | payer MEDICAID, SELFPAY | PROVIDERS: PCP Family Medicine; Visit Provider Student in an Organized Health Care Education/Training Program | DX: M75.41 Impingement syndrome of right shoulder (principal); Z98.890 Other specified postprocedural states | CPT/HCPCS: 20610; 99214; J3301; J9999 ==

== ENCOUNTER → 2024-10-20 07:53 | Outpatient (BNVA) | payer MEDICAID, SELFPAY | PROVIDERS: PCP Family Medicine; Referring Provider Family Medicine; Visit Provider Nurse Practitioner Family | DX: M54.2 Cervicalgia (principal); F17.200 Nicotine dependence, unspecified, uncomplicated | CPT/HCPCS: 99214 ==

== ENCOUNTER → 2024-10-25 13:34 | Outpatient (BNVA) | payer MEDICAID, SELFPAY | PROVIDERS: PCP Family Medicine; Visit Provider Nurse Practitioner Family | DX: M79.18 Myalgia, other site (principal); M54.2 Cervicalgia; F17.200 Nicotine dependence, unspecified, uncomplicated | CPT/HCPCS: 20553; 99214; J1010; J3490 ==

== ENCOUNTER 2024-12-29 14:42 | Outpatient (CLI) | payer MEDICAID, SELFPAY ==
--- NOTE | 2024-12-29 15:15 | MR_ITS ---
WS: [id number] MRI RIGHT SHOULDER HISTORY: rotator cuff impingement, shoulder surgery 1 year ago. COMPARISON: 07/29/2023 TECHNIQUE: Multiplanar sequences of the shoulder joint are submitted. Status post subacromial decompression. Biceps tendon is identified in the bicipital groove. Biceps tendon is small caliber but not displaced. Suspect there is a small split tear within the tendon. No significant fluid in the biceps tendon sheath. No os acromion. There is a large joint effusion which has progressed in size since the prior MRI. Small micrometallic artifacts from prior shoulder surgery. Thin septa noted throughout the joint effusion. No significant muscle atrophy. There is increased T2 signal within the distal supraspinatus tendon. There is a focal partial tear along the articular surface directly over the superior humeral head. Additional fraying along the articular surface of the tendon but no full-thickness tear or retraction. Intermediate signal within the tendon but not of fluid signal. Subscapularis does contain some intermediate signal but it does not appear to be torn. Infraspinatus tendon is more difficult to visualize. Majority of the sequences are pretty significantly degraded by motion artifact. Increased T2 signal distally suspect there probably is a partial tear of the infraspinatus tendon. Marked narrowing of the glenohumeral joint. High riding humeral head. Avulsion of the posterior labrum. Loss of the normal contour of the glenoid suggesting an osseous component of the labral tear. Additional subchondral cyst in the posterior labrum. Superior labrum is not well evaluated due to motion. There does also appear to be some increased T2 signal consistent with edema in the glenoid. MR/MR shoulder RT wo con* [id number] IMPRESSION: 1. New large joint effusion with thin septa throughout the effusion. Effusion extends into the rotator cuff interval. 2. Status post subacromial decompression. 3. Small caliber biceps tendon in the bicipital groove with a split tear. 4. Increased T2 signal in the distal supraspinatus. Partial tear along the art icular surface directly over the humeral head. Additional tendinopathy distally . 5. Subscapularis tendon appears to be intact. 6. Infraspinatus tendon is more difficult to visualized due to motion. Suspect there is a partial insertion site tear. 7. Posterior labral tear with osseous component. 8. Marrow edema in the glenoid. 9. Advanced glenohumeral joint arthritis with mildly high riding humeral head.
== END 2024-12-29 14:43 | disposition home or self-care (01) ==
PROVIDERS: PCP Family Medicine; Visit Provider Student in an Organized Health Care Education/Training Program
DX: M75.41 Impingement syndrome of right shoulder (principal); M13.811 Other specified arthritis, right shoulder
CPT/HCPCS: 73221

== ENCOUNTER → 2025-01-16 10:03 | Outpatient (BNVA) | payer MEDICAID, SELFPAY | PROVIDERS: PCP Family Medicine; Visit Provider Student in an Organized Health Care Education/Training Program | DX: Z98.890 Other specified postprocedural states (principal); M19.011 Primary osteoarthritis, right shoulder; M75.21 Bicipital tendinitis, right shoulder; M54.2 Cervicalgia; Z98.1 Arthrodesis status; M54.12 Radiculopathy, cervical region | CPT/HCPCS: 73030; 99214 ==

== ENCOUNTER → 2025-02-01 15:04 | Outpatient (BNVA) | payer MEDICAID, SELFPAY | PROVIDERS: PCP Family Medicine; Visit Provider Orthopaedic Surgery | DX: M54.2 Cervicalgia (principal); T85.848A Pain due to other internal prosthetic devices, implants and grafts, initial encounter; Y79.2 Prosthetic and other implants, materials and accessory orthopedic devices associated with adverse incidents | CPT/HCPCS: 72050; 99024 ==

== ENCOUNTER 2025-02-08 16:24 | Outpatient (CLI) | payer MEDICAID, SELFPAY ==
--- NOTE | 2025-02-08 16:45 | MR_ITS ---
WS: [id number] MRI CERVICAL SPINE NONCONTRAST HISTORY: Neck Pain cervical spine fusion 06/12/2023 COMPARISON: 06/09/2023 Technique: Multiplanar, multisequence noncontrast imaging of the cervical spine. Straightening is reversal of the normal cervical lordosis. Reversal centered at C4-5. Anterior cervical fusion extends from C3-C7 with interbody spacers. Disc spaces are narrowed. C7 anterolisthesis by 5 mm similar to the prior study from 2022. Signal within the cervical cord is normal. Visualized posterior fossa is unremarkable. Craniocervical junction, C1 and C2 relationship, odontoid process and soft tissues are normal. C2-C3: Mild RIGHT foraminal stenosis due to osteophyte and facet disease. No change. C3-C4: Mild disc bulging with osteophytic ridging. Slight anterolisthesis of C3 with facet joint arthropathy. Moderate bilateral foraminal stenosis predominantly due to osteophytes. C4-C5: Diffuse annular disc bulge and osteophytic ridging and facet arthritis. Central disc protrusion is no longer present. Moderate bilateral foraminal stenosis appears slightly improved since the prior study. C5-C6: Diffuse annular disc bulging with osteophytic ridging and facet disease. Slight improvement in the central stenosis. Central disc protrusion has resolved. There is still moderate to severe central and bilateral foraminal stenosis. C6-C7: Disc bulging and osteophytosis. Moderate central with moderate to severe bilateral foraminal stenosis. C7-T1: Unroofing of the disc due to anterolisthesis of C7. Mild endplate osteophytosis. Mild central with mild bilateral foraminal stenosis. Small central disc protrusion at T1-2. Paraspinal soft tissue are normal. MR/MR cervical spin wo con* [id number] IMPRESSION: 1. Interval anterior cervical fusion from C3-C7 with interbody spacers since 08/09/2022. 2. Reversal the normal cervical lordosis centered at C4-5. 3. Multilevel central and foraminal stenoses as above. No definite progression . Previously described central disc protrusion at C5-6 has resolved. 4. Moderate bilateral foraminal stenosis at C3-4 and C4-5. 5. Moderate to severe central and bilateral foraminal stenosis at C5-6. 6. Moderate central with moderate to severe bilateral foraminal stenosis at C6 -7. 7. Mild central and bilateral foraminal stenosis at C7-T1.
== END 2025-02-08 16:25 | disposition home or self-care (01) ==
LOC: RAD 16:25
PROVIDERS: PCP Family Medicine; Visit Provider Orthopaedic Surgery
DX: M48.02 Spinal stenosis, cervical region (principal); Z98.1 Arthrodesis status
CPT/HCPCS: 72141

== ENCOUNTER → 2025-02-15 15:37 | Outpatient (BNVA) | payer MEDICAID, SELFPAY | PROVIDERS: PCP Family Medicine; Visit Provider Orthopaedic Surgery | DX: M47.12 Other spondylosis with myelopathy, cervical region (principal); M47.22 Other spondylosis with radiculopathy, cervical region; M43.12 Spondylolisthesis, cervical region; Z09 Encounter for follow-up examination after completed treatment for conditions other than malignant neoplasm; Z98.1 Arthrodesis status | CPT/HCPCS: 99214 ==

== ENCOUNTER → 2025-02-16 14:41 | Outpatient (BNVA) | payer MEDICAID, SELFPAY | PROVIDERS: PCP Family Medicine; Visit Provider Student in an Organized Health Care Education/Training Program | DX: M75.41 Impingement syndrome of right shoulder (principal); M75.21 Bicipital tendinitis, right shoulder; M19.011 Primary osteoarthritis, right shoulder; Z98.890 Other specified postprocedural states; M75.101 Unspecified rotator cuff tear or rupture of right shoulder, not specified as traumatic; M19.019 Primary osteoarthritis, unspecified shoulder | CPT/HCPCS: 77002 ==

== ENCOUNTER → 2025-02-20 10:08 | Outpatient (BNVA) | payer MEDICAID, SELFPAY | PROVIDERS: PCP Family Medicine; Visit Provider Family Medicine | DX: Z01.818 Encounter for other preprocedural examination (principal); I10 Essential (primary) hypertension; E78.2 Mixed hyperlipidemia; J41.0 Simple chronic bronchitis | CPT/HCPCS: 80053; 80061; 85025 ==

== ENCOUNTER → 2025-02-28 09:45 | Day surgery (SDC) | payer MEDICAID, SELFPAY ==
[2025-02-28 09:45] VITALS: BMI 28.8
[2025-02-28 10:24] VITALS: BP 113/84; PULSE 68; RESP 16; TEMP 36.3; O2SAT 100
[2025-02-28 10:28] LABS: PCP Screen Urine Negative (Negative)
--- NOTE | 2025-02-28 10:41 | SUR.PREOP ---
10:35 DOCTOR Bubba INTO DISCUSS PLAN OF CARE WITH PATIENT AND FAMILY. SURGERY TO BE DIFFERED DUE TO URINE LAB RESULT.
== END ==
PROVIDERS: PCP Family Medicine; Visit Provider Orthopaedic Surgery
PROC: (CPT 22600; 2025-02-28 12:40)
PROC: (CPT 63001; 2025-02-28 12:40)
DX: Z53.8 Procedure and treatment not carried out for other reasons (principal)
CPT/HCPCS: 80306

== ENCOUNTER 2025-03-07 17:27 | Inpatient (IN) | payer MEDICAID, SELFPAY ==
[2025-03-07] VITALS (21 sets, daily range): BP systolic 77–150; BP diastolic 55–100; PULSE 61–105; RESP 16–20; TEMP 36.4–37.1; O2SAT 95–100; BMI 28.8; BMI 29.3
[2025-03-07 08:34] LABS: PCP Screen Urine Negative (Negative)
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
--- NOTE | 2025-03-07 10:53 | W.PM.OPSUD ---
Surgery/Procedure H&P Update DATE OF PROCEDURE: March 07, 2025 DATE H&P PERFORMED: 02/15/25 H&P UPDATE INFORMATION: I have reviewed H&P completed within last 30 days, I have examined patient prior to procedure and No changes to prior documentation PREOP DIAGNOSIS: Cervical stenosis with myelopathy PLANNED PROCEDURE: Operation Date: 03/07/25 10:40 Proposed Procedures p Hardware Removal Cervical acdf screw(Not Applicable) - DO wally Robin Cervical Posterior Fusion(Not Applicable) - DO wally Robin Cervical Laminectomy(Not Applicable) - Damian Fishman DO
[2025-03-07] MEDS: lidocaine-epi 1% 20 mL INJ INJECTION (13:42)
[2025-03-07] MEDS: tobramycin 40 mg/mL SDV 2mL 120 MG XX (13:44)
--- NOTE | 2025-03-07 15:22 | PM.OP ---
Operative Report Date of procedure: March 07, 2025 Pre-op diagnosis: 1. Cervical stenosis with radiculopathy 2. Nonunion cervical spine 3. Loose hardware anterior cervical spine Post-op diagnosis: same Procedure done: 1. C2-T2 posterior cervical fusion 2. C2-T2 instrumentation 3. C3/4 laminectomy with partial facetectomies 4. C4/5 laminectomy with partial facetectomies 5. C5/6 laminectomy with partial facetectomies 6. C6/7 laminectomy with partial facetectomies 7. C7/T1 laminectomy with partial facetectomies 8. use of computer navigation/Serotactic for spine 9. use of autograft from same incision 10. Use of allograft 11. Removal of deep cervical hardware from anterior spine Surgeon: Damian Fishman DO Estimated blood loss (mL): 200 Procedure: 1. C2-T2 posterior cervical fusion 2. C2-T2 instrumentation 3. C3/4 laminectomy with partial facetectomies 4. C4/5 laminectomy with partial facetectomies 5. C5/6 laminectomy with partial facetectomies 6. C6/7 laminectomy with partial facetectomies 7. C7/T1 laminectomy with partial facetectomies 8. use of computer navigation/Serotactic for spine 9. use of autograft from same incision 10. Use of allograft 11. Removal of deep cervical hardware from anterior spine Patient brought to the operative suite after undergoing anesthesia was placed in the prone position. Neuro monitoring was attached to the patient is throughout the entire case. Patient was placed so that was no areas impingement. Patient was then prepped and draped normal sterile fashion. He was then positioned supine on the operating table, and all areas of impingement were well padded. The arms were carefully padded and tucked at his sides. A roll was placed between the shoulder blades.. An x-ray was done to determine the appropriate level for the skin incision. The entire neck was then sterilely prepped and draped in the usual fashion. Neuromonitoring was attached prior to prepping. A transverse skin incision was made and carried down to the platysma muscle. This was then split in line with its fibers. Blunt dissection was carried down medial to the carotid sheath and lateral to the trachea and esophagus until the anterior cervical spine was visualized. A needle was placed into a disc and an x-ray was done to determine its location. The longus colli muscles were then elevated bilaterally with the electrocautery unit. Self-retaining retractors were placed deep to the longus colli muscle. The screw that was prominent was removed. Wound was then irrigated platysmas was closed with 2-0 Vicryl and skin was closed with 2-0 Vicryl and Monocryl suture. Sterile dressings were applied. Patient was then flipped into the prone position. Patient was then again all areas impingement well-padded. Patient was placed in the prone position patient was then prepped and draped in the normal sterile fashion. Skin incision is made from C2 down to T2. Cervical fascia was identified. Retractors were placed. Subperiosteal dissection was made out from the spinous process of C2 out to the lateral masses of C2. Down to C3, C4, C5, C6, C7, and out to the transverse processes of T1 and T2. This was done bilaterally. Next attention was brought to placing a spinous process clamp on to T3. This was done in order to facilitate using the computer navigation. The C-arm was brought in and spun around patient and the information from the C-arm was loaded in the computer to facilitate placing screws using computer navigation. Next attention was brought to placing screws. Attention was first brought to doing the pedicle screws at T1-T2. This was done by using high-speed bur. Followed by using the navigated drill followed by pedicle feeler followed by placement of the screws. 30 mm screws were used at each level. This process was done at T1 and T2 bilaterally. Once pedicle screws are completed navigation was then used on the C2 screws. The C2 pars screw was placed. This was done using the high-speed bur followed by the drill followed by placement of the screw. A 20 mm screw was placed bilaterally. The technique was used bilaterally. The screw was placed navigated. Lateral mass screws were then placed at C3-C4-C5 and C6 bilaterally. C7 was skipped. The body mass screws were done by using high-speed bur followed by a drill set at 12 mm. Followed by pedicle feeler followed by placement of the screw which were 14 mm. Next attention was brought to performing the laminectomies and partial facetectomies. Attention was brought to the C7-T1 level first. The ligamentum flavum was taken down between the interlaminar space. Was seen and lumbar space was opened up was used to help undermine and get the ligamentum flavum taken down from lateral mass lateral mass. High-speed bur was then used to take down the medial aspect of the facet joint as well as the lamina. Then the #2 Kerrison was used to finish off the gutter that was performed and also take down the medial aspect of the facet joint of C7 and T1. This was done bilaterally. The lamina was then elevated up and the facet joints were cleaned up with a Kerrison rongeur and curved curette was used to ensure that the nerve roots were freed up. Next attention was brought to the C6-7 level.The ligamentum flavum was taken down between the interlaminar space. Was seen and lumbar space was opened up was used to help undermine and get the ligamentum flavum taken down from lateral mass lateral mass. High-speed bur was then used to take down the medial aspect of the facet joint as well as the lamina. Then the #2 Kerrison was used to finish off the gutter that was performed and also take down the medial aspect of the facet joint of C6 and C7. This was done bilaterally. The lamina was then elevated up and the facet joints were cleaned up with a Kerrison rongeur and curved curette was used to ensure that the nerve roots were freed up. Was brought to the C5-6 level.The ligamentum flavum was taken down between the interlaminar space. Was seen and lumbar space was opened up was used to help undermine and get the ligamentum flavum taken down from lateral mass lateral mass. High-speed bur was then used to take down the medial aspect of the facet joint as well as the lamina. Then the #2 Kerrison was used to finish off the gutter that was performed and also take down the medial aspect of the facet joint of C5 and C6. This was done bilaterally. The lamina was then elevated up and the facet joints were cleaned up with a Kerrison rongeur and curved curette was used to ensure that the nerve roots were freed up. Next attention was brought to the C4-5 level. The ligamentum flavum was taken down between the interlaminar space. Was seen and lumbar space was opened up was used to help undermine and get the ligamentum flavum taken down from lateral mass lateral mass. High-speed bur was then used to take down the medial aspect of the facet joint as well as the lamina. Then the #2 Kerrison was used to finish off the gutter that was performed and also take down the medial aspect of the facet joint of C4 and C5. This was done bilaterally. The lamina was then elevated up and the facet joints were cleaned up with a Kerrison rongeur and curved curette was used to ensure that the nerve roots were freed up. Next attention was brought to the C3-4 level. The ligamentum flavum was taken down between the interlaminar space. Was seen and lumbar space was opened up was used to help undermine and get the ligamentum flavum taken down from lateral mass lateral mass. High-speed bur was then used to take down the medial aspect of the facet joint as well as the lamina. Then the #2 Kerrison was used to finish off the gutter that was performed and also take down the medial aspect of the facet joint of C3 and C4. This was done bilaterally. The lamina was then elevated up and the facet joints were cleaned up with a Kerrison rongeur and curved curette was used to ensure that the nerve roots were freed up. Once decompression was done at each level. Attention was then brought to decorticating the lateral masses from C2-C7. As well as the lamina and transverse processes of T1 and T2. This was done bilaterally. Then the autograft from the lamina of the shoulder was packed into the lateral gutters along with ostial amp bone graft. Vancomycin powder and deep drain was placed in the wound. Wound was then closed in layered fashion with 0 Vicryl 2-0 Vicryl and Monocryl suture. Sterile dressings were applied patient was transferred to the PACU in stable condition.
--- NOTE | 2025-03-07 16:18 | XR_ITS ---
WS: [id number] Cervical spine, C-arm fluoroscopy views, 03/07/2025 Clinical Data: or pic, Comparison: Cervical spine, 02/01/2025 Findings: Dr. Fishman performed a posterior cervical fusion. The anterior cervical disc fusion remains in position. XR/XR cervical spine 3V* [id number] Impression: Posterior cervical fusion.
[2025-03-07] MEDS: ATORVASTATIN 10 MG TABLET 20 MG PO (18:16)
[2025-03-07] MEDS: HYDROcodone-acetaminophen 5-325 mg Tablet PO (19:27)
[2025-03-07] MEDS: morphine 4 mg/mL SDV 1 mL 2 MG IVP ×2 (20:03→23:02)
[2025-03-07] MEDS: diclofenac 1% Topical Gel 100 gm 1 APPLIC TOPICAL ×2 (21:18→21:20)
[2025-03-08] VITALS (9 sets, daily range): BP systolic 126–160; BP diastolic 74–85; PULSE 64–90; RESP 16–20; TEMP 36.4–36.8; O2SAT 95–100
[2025-03-08] MEDS: morphine 4 mg/mL SDV 1 mL 2 MG IVP (05:03)
--- OUTSIDE RECORDS SUMMARY | 2025-03-08 06:31 | XMS_ITS | Clinical Summary ---
Author Organization [facility] Address [address] Attn: Epic Prelude ADT [place]Z [id number] Care Team Providers Care Computer Programming Manager Name Role Phone Siomara Anne MD Primary Care Provider [phone] Allergies Active Allergy Reactions Criticality Noted Date Comments Cephalexin Unknown 03/03/2016 Clindamycin Hcl Other (See Comments) 10/30/2008 tremors Retapamulin Other (See Comments) 01/08/2009 Severe burning sensation at application site. 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 Acute blood loss anemia 11/11/2016 Laceration of hand, left 11/11/2016 Acute respiratory failure 11/11/2016 LOC (loss of consciousness) 11/11/2016 Hypotension 11/11/2016 Amputation of finger with complication 7 Overview (11/21/2020): 2nd third and 4th Methamphetamine abuse 01/21/2014 Overview (11/21/2020): Positive toxicology screen on 12/2013 admission; patient admits to using day prior to his admission Acute thrombotic stroke 01/15/2014 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 04/19/2009 Shoaib Anderson T5 (04/03) 04/19/2009 Alcohol abuse 09/26/2008 Unspecified asthma(493.90) Immunizations Immunization Administration Dates Next Due (ADACEL/BOOSTRIX)(10 YR UP) TDAP VACCINE, 0.5ML, IM 11/11/2016 (TDVAX)(7 YRS UP) TETANUS AN D DIPHTHERIA TOXOIDS, ADSORBED (2 LF OF TETANUS TOXOID AND 2 LF OF DIPHTHERIA TOXOID), 0.5ML (PF), IM 09/26/2008 Influenza Vaccine Split 3+ Yrs IM 04/19/2009 Family History Medical History Relation Name Comments Asthma Brother Relation Name Status Comments Brother Social History Tobacco Use Types Packs/Day Years Used Date Smoking Tobacco: Some Days Smokeless Tobacco: Current Chew Alcohol Use Standard Drinks/Week Comments No 0 (1 standard drink = 0.6 oz pur e alcohol) Sex and Gender Information Value Date Recorded Sex Assigned at Not on file Legal Sex Male 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 Gender Identity Not on file Sexual Orientation Not on file Last Filed Vital Signs Vital Sign Reading Time Taken Comments Blood Pressure 126/97 05/31/2023 6:00 PM LABOR ECONOM[employer] PROFESSOR Pulse 100 05/31/2023 6:00 PM LABOR ECON[employer] PROFESSOR Temperature 37 C (98.6 F) 05/31/2023 4:22 PM LABOR ECONOMICS PROFESSOR Respiratory Rate 16 05/31/2023 6:00 PM LABOR ECONOMICS PROFESSOR Oxygen Saturation 100% 05/31/2023 6:00 PM LABOR ECONOMICS PROFESSOR Inhaled Oxygen Concentration - - Weight 85.9 kg (189 lb 6.4 oz) 05/31/2023 4:22 P M LABOR E[employer] PROFESSOR Height 167.6 cm (5' 6 ) 05/31/2023 4:22 PM LABOR ECONOMICS PROFESSOR Body Mass Index 30.57 05/31/2023 4:22 PM LABOR ECON[employer]ICS PROFESSOR Plan of Treatment Health Maintenance Due Date Last Done Comments HEPATITIS B VACCINES (1 of 3 - 19+ 3-dose series) 1990 COLORECTAL SCREENING 2016 Colorectal Cancer Screening 2016 FIT-DNA Q 3 years 2016 FIT/FOBT Q 1 year 2016 Flex Sig/CT Colonography Q 5 years 2016 ZOSTER VACCINE (1 of 2) 2021 INFLUENZA VACCINE (#1) 2025 04/19/2009 DTAP/TDAP/TD VACCINES (2 - Td or Tdap) 11/11/2026, 09/26/2008 Medical Devices Implanted Type Area Shuttle Route Vehicle Operator Device Identifier Shelf Expiration Date Model / Serial / Lot Wire K Trocar Dbl .[id number] - [id number] Implanted:Qty: 1 on 11/12/2016 by Galindo Dhillon MD Wire Right: Finger BRASSELER RUST 03/11/2021 [id number] / / [id number] Description:Fight Index Fing er Wire K Trocar Dbl .[id number] - [id number] Implanted:Qty: 1 on 11/12/2016 by Galindo Dhillon MD Wire Right: Finger [employer] RUST 06/25/2021 [id number] / / [id number] Description:Right Ring Finge r Insurance MEDICAID [place] Care Teams Computer Programming Manager Relationship Specialty Start Date End Date Siomara Anne MD PCP - General Family Practice 03/14/21
--- OUTSIDE RECORDS SUMMARY | 2025-03-08 06:31 | XMS_ITS | Encounter Summary ---
Author Organization [facility] Address [address] [place] [address] Care Team Providers Care Mold Capper Name Role Phone TRU Chanel Sr., Michael Dave Primary Care Pro vider Encounter Details Date Type Department Care Team (Late st Contact Info) Description 09/13/2007 Outpatient Historical [facility] Family Medicine- [address] [place]asha [place], [place] [phone] Larissa Arreguin NP NO ADDRESS ON FILE Social History Tobacco Use Types Packs/Day Years Used Date Smoking Tobacco: Never Assessed Sex and Gender Information Value Date Recorded Sex Assigned at Not on file 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 Pulse: 0. Not dictated. BP: 160/62. Temperature is 98.0. ALLERGIES: NO KNOWN ALLERGIES. CHIEF COMPLAINT: Headache, sinus congestion. OBJECTIVE: Reviewed the nurse's note and concur. ENT: Showed the TMs have adequate light reflex. The oropharynx is injected. He has some thick mucoid postnasal discharge. NECK: Supple. HEART: Normal sinus rate and rhythm. LUNGS: Clear except for some coarse breath sounds in the upper airway. MUSCULOSKELETAL: He also had a rosemarie in the muscle that is causing pain and his right upper extremity. This pain starts at the back of his head over the occiput, extends down the neck along the trapezius line over the right shoulder and with pressure on that, I can feel the muscle spasm. The pressure also causes the hand to be a little tingly. IMPRESSION: 1. Acute sinusitis. 2. Bronchitis. 3. Reactive airway. 4. Muscle spasm, right trapezius. PLAN: The patient opted to try medication before we did anything like x-rays, CT of the C-spine. Holly called to [facility] the following medications. Zithromax 250 Z-Rajendra, take as directed with food; Soma plain 350 mg, #30, 1 refill, 1/2 to 1 at bedtime p.r.n. muscle spasm; albuterol inhaler, 3 refills, inhale 1 puff every 3 to 4 hours p.r.n. cough or wheeze; Qvar Inhaler 80 mcg, 1 refill,inhale 1 puff a.m. and p.m., rinse mouth after use; Mucinex D, #30, 1 refill, okayed by Dr. Moffett, 1 q.a.m. for sinus; and Mucinex DM #30, 1 refill, in my name 1 q. p.m. sinus or cough. Also, the patient agreed to pay for Mobic 15 mg, #30, 1 refill, 1 q. p.m. for pain. He is to let us know what works and what does not. Return p.r.n. SHAUN William [facility] Electronically Signed by SHAUN William 09/15/2007 12:28 , shital Torrez Document #: [id number] cc: documented in this encounter Plan of Treatment Not on file documented as of this encounter Visit Diagnoses Not on filedocumented in this encounter Additional Health Concerns Infection Onset Date Last Indicated Resolved Time MRSA Comment:Jessica 01/15/14 01/16/2014 11/12/2016 MRSA Comment:Jessica 11/12/16 11/12/2016 11/12/2016 documented as of this encounter Care Teams Mold Capper Relationship Specialty Start Date End Date Yanique Carnes, TRU Ordoñez [address] [place] [address] PCP - General NURSE PRACTITIONER 03/03/16 documented as of this encounter
--- OUTSIDE RECORDS SUMMARY | 2025-03-08 06:31 | XMS_ITS | Clinical Summary ---
Author Organization [facility] Address [address] [place] [address] Phone Care Team Providers Care Infant Childcare Provider Name Role Phone Yanique Carnes, TRU, Ari Moy Primary Care Pro vider Allergies Active Allergy Reactions Criticality Noted Date Comments Cephalexin Unknown 03/03/2016 Clindamycin Hcl Other (See Comments) 10/30/2008 tremors Retapamulin Other (See Comments) 01/08/2009 Severe burning sensation at application site. 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 Acute respiratory failure 11/11/2016 Acute blood loss anemia 11/11/2016 Hypotension 11/11/2016 LOC (loss of consciousness) 11/11/2016 Laceration of hand, left 11/11/2016 Amputation of finger with complication 7 Overview (11/11/2016): 2nd third and 4th Methamphetamine abuse 01/21/2014 Overview (01/21/2014): Positive toxicology screen on 12/2013 admission; patient admits to using day prior to his admission Acute thrombotic stroke 01/15/2014 MRSA colonization 01/15/2014 Shoaib Anderson T5 (04/03) 04/19/2009 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 04/19/2009 Alcohol abuse 09/26/2008 Unspecified asthma(493.90) Immunizations [...] Tobacco: Some Days Smokeless Tobacco: Current Chew Tobacco Cessation:Ready to Q uit: No; Counseling Given: Yes Alcohol Use Standard Drinks/Week Comments No 0 (1 standard drink = 0.6 oz pure alcohol) past use only - denies as of 09/26/18 Sex and Gender Information Value Date Recorded Sex Assigned at Not on file 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 Gender Identity Not on file Sexual Orientation Not on file Occupation Industry Job Start Date Job End Date Not on file Not on file Not on file Not on file Last Filed Vital Signs Vital Sign Reading Time Taken Comments Blood Pressure 115/78 10/12/2018 2:41 PM CDT Pulse 89 09/29/2018 12:25 PM CHECK CASHIER Temperature 36.6 C (97.8 F) 09/29/2018 11:49 AM CHECK CASHIER Respiratory Rate 20 09/29/2018 12:25 PM CHECK CASHIER Oxygen Saturation 98% 09/29/2018 12:25 PM CHECK CASHIER Inhaled Oxygen Concentration - - Weight 74.8 kg (165 lb) 10/12/2018 2:41 PM CDT Height 167.6 cm (5' 6 ) 10/12/2018 2:41 PM CDT Body Mass Index 26.63 10/12/2018 2:41 PM CDT Plan of Treatment Health Maintenance Due Date [...] 11/11/2026, 09/26/2008 Medical Devices Implanted Type Area Klystrom Tube Tester Device Identifier Shelf Expiration Date Model / Serial / Lot Wire Norman Trocar Dbl .[id number] - [id number] Implanted:Qty: 1 on 11/12/2016 by Galindo Dhillon MD at [facility] Right: Finger [employer] [facility] 03/11/2021 [id number] / / [id number] Description:Fight Index Fing er Wire K Trocar Dbl .[id number] - [id number] Implanted:Qty: 1 on 11/12/2016 by Galindo Dhillon MD at [facility] Wire Right: Finger [facility] [facility] 06/25/2021 [id number] / / [id number] Description:Right Ring Finge r Additional Health Concerns Infection Onset Date Last Indicated MRSA Comment:Jessica 01/15/14 01/16/2014 11/12/2016 MRSA Comment:Jessica 11/12/16 11/12/2016 11/12/2016 Insurance MEDICAID [place] Advance Directives For more information, please contact: [phone] * Full Code (Latest Code Status on File) Date Activated Date Inactivated Comments 09/29/2018 9:36 AM 09/29/2018 3:04 PM * Full Code Date Activated Date Inactivated Comments 01/15/2014 6:22 PM 01/17/2014 2:01 PM Care Teams Infant Childcare Provider Relationship Specialty Start Date End Date Yanique Carnes, TRU Ordoñez [address] [place] [address] PCP - General NURSE PRACTITIONER 03/03/16
--- OUTSIDE RECORDS SUMMARY | 2025-03-08 06:31 | XMS_ITS | Encounter Summary ---
Author Organization [facility] Address [address] [place] [address] Care Team Providers Care List Of First Job Ideas Name Role Phone TRU Chanel Sr., Michael Dave Primary Care Pro vider Encounter Details Date Type Department Care Team (Latest Contact Info) Description 02/24/1999 Outpatient Historical [facility] Gunnar Bueno MD [address] [place] [phone] Open wound of upper arm, with tendon involvement (Primary Dx); Injury to median nerve; Injury to ulnar nerve; Follow-up examination following surgery Social History Tobacco Use Types Packs/Day Years Used Date Smoking Tobacco: Never Assessed Sex and Gender Information Value Date Recorded Sex Assigned at Not on file 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 Gender Identity Not on file Sexual Orientation Not on file documented as of this encounter Plan of Treatment Not on file documented as of this encounter Visit Diagnoses Diagnosis Open wound of upper arm, with tendon involvement- Primary Injury to median nerve Injury to ulnar nerve Follow-up examination following surgery documented in this encounter Additional Health Concerns Infection Onset Date Last Indicated Resolved Time MRSA Comment:Jessica 01/15/14 01/16/2014 11/12/2016 MRSA Comment:Jessica 11/12/16 11/12/2016 11/12/2016 documented as of this encounter Care Teams List Of First Job Ideas Relationship Specialty Start Date End Date Ari Chanel Sr., FNP [address] [place] [address] PCP - General NURSE PRACTITIONER 03/03/16 documented as of this encounter
--- OUTSIDE RECORDS SUMMARY | 2025-03-08 06:31 | XMS_ITS | Encounter Summary ---
Author Organization [facility] Address [address] [place] [address] Care Team Providers Care Regulator Tester Name Role Phone TRU Chanel Sr., Michael Dave Primary Care Pro vider Encounter Details Date Type Department Care Team (Latest Contact Info) Description 06/30/1999 Outpatient Historical [facility] Gunnar Bueno MD [address] [place] [address] Injury to median nerve (Primary Dx); Open wound of upper arm, with tendon involvement; Surgical convalescence Social History Tobacco Use Types Packs/Day Years Used Date Smoking Tobacco: Never Assessed Sex and Gender Information Value Date Recorded Sex Assigned at Not on file 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 Gender Identity Not on file Sexual Orientation Not on file documented as of this encounter Plan of Treatment Not on file documented as of this encounter Visit Diagnoses Diagnosis Injury to median nerve- Primary Open wound of upper arm, with tendon involvement Surgical convalescence Convalescence following surgery documented in this encounter Additional Health Concerns Infection Onset Date Last Indicated Resolved Time MRSA Comment:Jessica 01/15/14 01/16/2014 11/12/2016 MRSA Comment:Jessica 11/12/16 11/12/2016 11/12/2016 documented as of this encounter Care Teams Regulator Tester Relationship Specialty Start Date End Date Ari Chanel Sr., FNP [address] [place] [address] PCP - General NURSE PRACTITIONER 03/03/16 documented as of this encounter
--- OUTSIDE RECORDS SUMMARY | 2025-03-08 06:31 | XMS_ITS | Encounter Summary ---
Author Organization [facility] Address [address] [place] [address] Care Team Providers Care Carbonizer Name Role Phone TRU Chanel Sr., Michael Dave Primary Care Pro vider Encounter Details Date Type Department Care Team (Latest Contact Info) Description 02/23/2001 Outpatient Historical [facility] Family Medicine- [address] [place], [place] [address] Jerson Moffett, NO ADDRESS ON FILE Pain in limb (Primary Dx) Social History Tobacco Use Types Packs/Day Years Used Date Smoking Tobacco: Never Assessed Sex and Gender Information Value Date Recorded Sex Assigned at Not on file 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 Gender Identity Not on file Sexual Orientation Not on file documented as of this encounter Plan of Treatment Not on file documented as of this encounter Visit Diagnoses Diagnosis Pain in limb- Primary Pain in soft tissues of limb documented in this encounter Additional Health Concerns Infection Onset Date Last Indicated Resolved Time MRSA Comment:Jessica 01/15/14 01/16/2014 11/12/2016 MRSA Comment:Jessica 11/12/16 11/12/2016 11/12/2016 documented as of this encounter Care Teams Carbonizer Relationship Specialty Start Date End Date Ari Chanel Sr., FNP [address] [place] [address] PCP - General NURSE PRACTITIONER 03/03/16 documented as of this encounter
--- OUTSIDE RECORDS SUMMARY | 2025-03-08 06:31 | XMS_ITS | Encounter Summary ---
Author Organization [facility] Address [address] [place] [address] Care Team Providers Care Literacy Consultant Name Role Phone TRU Chanel Sr., Michael Dave Primary Care Pro vider Encounter Details Date Type Department Care Team (Latest Contact Info) Description 03/19/2004 Outpatient Historical [facility] Family Medicine- [place] [place] [address] [place], [place] [address] Larissa Arreguin, MIGU[place] NO ADDRESS ON FILE DERMATOPHYTOSIS OF FOOT (Primary Dx); DERMATITIS NOS Social History Tobacco Use Types Packs/Day Years Used Date Smoking Tobacco: Never Assessed Sex and Gender Information Value Date Recorded Sex Assigned at Not on file 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 Gender Identity Not on file Sexual Orientation Not on file documented as of this encounter Plan of Treatment Not on file documented as of this encounter Visit Diagnoses Diagnosis Dermatophytosis of foot- Primary Contact dermatitis and other eczema, due to unspecified cause documented in this encounter Additional Health Concerns Infection Onset Date Last Indicated Resolved Time MRSA Comment:Jessica 01/15/14 01/16/2014 11/12/2016 MRSA Comment:Jessica 11/12/16 11/12/2016 11/12/2016 documented as of this encounter Care Teams Literacy Consultant Relationship Specialty Start Date End Date Ari Chanel Sr., FNP [address] [place] [address] PCP - General NURSE PRACTITIONER 03/03/16 documented as of this encounter
--- OUTSIDE RECORDS SUMMARY | 2025-03-08 06:31 | XMS_ITS | Encounter Summary ---
Author Organization [facility] Address [address] [place] [address] Care Team Providers Care Events Traffic Controller Name Role Phone TRU Chanel Sr., Michael Dave Primary Care Pro vider Encounter Details Date Type Department Care Team (Late st Contact Info) Description 09/24/2006 Outpatient Historical [facility] Imaging [facility] Prentiss [place] [address] [place] [address] Social History Tobacco Use Types Packs/Day Years Used Date Smoking Tobacco: Never Assessed Sex and Gender Information Value Date Recorded Sex Assigned at Not on file 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 Gender Identity Not on file Sexual Orientation Not on file documented as of this encounter Plan of Treatment Not on file documented as of this encounter Visit Diagnoses Not on filedocumented in this encounter Additional Health Concerns Infection Onset Date Last Indicated Resolved Time MRSA Comment:Jessica 01/15/14 01/16/2014 11/12/2016 MRSA Comment:Jessica 11/12/16 11/12/2016 11/12/2016 documented as of this encounter Care Teams Events Traffic Controller Relationship Specialty Start Date End Date Ari Chanel Sr., FNP [address] [place] [address] PCP - General NURSE PRACTITIONER 03/03/16 documented as of this encounter
--- OUTSIDE RECORDS SUMMARY | 2025-03-08 06:31 | XMS_ITS | Encounter Summary ---
Author Organization [facility] Address [address] [place] [address] Care Team Providers Care Leather Belt Loop Cutter Name Role Phone TRU Chanel Sr., Ari Moy Primary Care Pro vider Encounter Details Date Type Department Care Team (Latest Contact Info) Description 04/13/2001 Outpatient Historical [facility] Gunnar Bueno MD [address] [place] [phone] Closed dislocation of shoulder, unspecified site (Primary Dx) Social History Tobacco Use Types Packs/Day Years Used Date Smoking Tobacco: Never Assessed Sex and Gender Information Value Date Recorded Sex Assigned at Not on file 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 Male 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 Gender Identity Not on file Sexual Orientation Not on file documented as of this encounter Plan of Treatment Not on file documented as of this encounter Visit Diagnoses Diagnosis Closed dislocation of shoulder, unspecified site- Primary documented in this encounter Additional Health Concerns Infection Onset Date Last Indicated Resolved Time MRSA Comment:Jessica 01/15/14 01/16/2014 11/12/2016 MRSA Comment:Jessica 11/12/16 11/12/2016 11/12/2016 documented as of this encounter Care Teams Leather Belt Loop Cutter Relationship Specialty Start Date End Date Ari Chanel Sr., FNP [address] [place] [address] PCP - General NURSE PRACTITIONER 03/03/16 documented as of this encounter
--- OUTSIDE RECORDS SUMMARY | 2025-03-08 06:31 | XMS_ITS | Encounter Summary ---
Author Organization [facility] Address [address] [place] [address] Care Team Providers Care Creeler Name Role Phone TRU Chanel Sr., Michael Dave Primary Care Pro vider Encounter Details Date Type Department Care Team (Latest Contact Info) Description 02/16/2000 Outpatient Historical [facility] Gunnar Bueno MD [address] [place] [phone] Injury to median nerve (Primary Dx); Injury to ulnar nerve; Surgical convalescence Social History Tobacco Use Types Packs/Day Years Used Date Smoking Tobacco: Never Assessed Sex and Gender Information Value Date Recorded Sex Assigned at Not on file 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 Gender Identity Not on file Sexual Orientation Not on file documented as of this encounter Plan of Treatment Not on file documented as of this encounter Visit Diagnoses Diagnosis Injury to median nerve- Primary Injury to ulnar nerve Surgical convalescence Convalescence following surgery documented in this encounter Additional Health Concerns Infection Onset Date Last Indicated Resolved Time MRSA Comment:Jessica 01/15/14 01/16/2014 11/12/2016 MRSA Comment:Jessica 11/12/16 11/12/2016 11/12/2016 documented as of this encounter Care Teams Creeler Relationship Specialty Start Date End Date Ari Chanel Sr., FNP [address] [place], [place] [address] PCP - General NURSE PRACTITIONER 03/03/16 documented as of this encounter
--- OUTSIDE RECORDS SUMMARY | 2025-03-08 06:31 | XMS_ITS | Encounter Summary ---
Author Organization [facility] Address [address] [place] [address] Care Team Providers Care Agricultural Appraiser Name Role Phone TRU Chanel Sr., Michael Dave Primary Care Pro vider Encounter Details Date Type Department Care Team (Latest Contact Info) Description 08/02/2002 Outpatient Historical [facility] Family Medicine- [place] [address] [place] [phone] Kym Condon MD NO ADDRESS ON FILE ACUTE SINUSITIS NOS (Primary Dx); Dysfunct eustachian tube Social History Tobacco Use Types Packs/Day Years Used Date Smoking Tobacco: Never Assessed Sex and Gender Information Value Date Recorded Sex Assigned at Not on file 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 Gender Identity Not on file Sexual Orientation Not on file documented as of this encounter Plan of Treatment Not on file documented as of this encounter Visit Diagnoses Diagnosis Acute sinusitis, unspecified- Primary Dysfunct eustachian tube Dysfunction of Eustachian tube documented in this encounter Additional Health Concerns Infection Onset Date Last Indicated Resolved Time MRSA Comment:Jessica 01/15/14 01/16/2014 11/12/2016 MRSA Comment:Jessica 11/12/16 11/12/2016 11/12/2016 documented as of this encounter Care Teams Agricultural Appraiser Relationship Specialty Start Date End Date Ari Chanel Sr., FNP [address] [place] [address] PCP - General NURSE PRACTITIONER 03/03/16 documented as of this encounter
--- OUTSIDE RECORDS SUMMARY | 2025-03-08 06:31 | XMS_ITS | Encounter Summary ---
Author Organization [facility] Address [address] [place] [address] Care Team Providers Care Industrial Boilermaker Name Role Phone TRU Chanel Sr., Ari Moy Primary Care Pro vider Encounter Details Date Type Department Care Team (Latest Contact Info) Description 06/01/2001 Outpatient Historical [facility] Gunnar Bueno MD [address] [place] [phone] DISLOC SHOULDER NOS-CLOSE (Primary Dx) Social History Tobacco Use Types Packs/Day Years Used Date Smoking Tobacco: Never Assessed Sex and Gender Information Value Date Recorded Sex Assigned at Not on file Legal Sex Male 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
--- OUTSIDE RECORDS SUMMARY | 2025-03-08 06:31 | XMS_ITS | Encounter Summary ---
Author Organization [facility] Address [address] [place] [address] Care Team Providers Care Panel Laminator Name Role Phone TRU hCanel Sr., Michael Dave Primary Care Pro vider Encounter Details Date Type Department Care Team (Latest Contact Info) Description 09/23/2006 Outpatient Historical [facility] Family Medicine [address] [place] [phone] Larissa Arreguin NP NO ADDRESS ON FILE Unspecified Asthma (Primary Dx); Acute Bronchitis Social History Tobacco Use Types Packs/Day Years Used Date Smoking Tobacco: Never Assessed Sex and Gender Information Value Date Recorded Sex Assigned at Not on file Legal Sex Male 3:38 AM 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 Gender Identity Not on file Sexual Orientation Not on file documented as of this encounter Plan of Treatment Not on file documented as of this encounter Visit Diagnoses Diagnosis Unspecified asthma(493.90)- Primary Unspecified asthma Acute bronchitis documented in this encounter Additional Health Concerns Infection Onset Date Last Indicated Resolved Time MRSA Comment:Jessica 01/15/14 01/16/2014 11/12/2016 MRSA Comment:Jessica 11/12/16 11/12/2016 11/12/2016 documented as of this encounter Care Teams Panel Laminator Relationship Specialty Start Date End Date Ari Chanel Sr., FNP [address] [place] [address] PCP - General NURSE PRACTITIONER 03/03/16 documented as of this encounter
--- OUTSIDE RECORDS SUMMARY | 2025-03-08 06:31 | XMS_ITS | Encounter Summary ---
Author Organization [employer] Address [address] [place] [address] Care Team Providers Care Will Call Order Clerk Name Role Phone TRU Chanel Sr., Michael Dave Primary Care Pro vider Encounter Details Date Type Department Care Team (Late st Contact Info) Description 08/31/2017 [facility] [address] [place] [phone] Ari Chanel Sr., FNP [address] [place], [place] [address] Bursitis of elbow Social History Tobacco Use Types Packs/Day Years Used Date Smoking Tobacco: Some Days Smokeless Tobacco: Current Alcohol Use Standard Drinks/Week Comments No 0 (1 standard drink = 0.6 oz pur e alcohol) Sex and Gender Information Value Date Recorded Sex Assigned at Not on file Legal Sex Male 3:38 AM CRAY FISHING HAND Gender Identity Not on file Sexual Orientation Not on file Occupation Industry Job Start Date Job End Date Not on file Not on file Not on file Not on file documented as of this encounter Plan of Treatment Not on file documented as of this encounter Results * XR ELBOW 3+ VW LEFT (08/31/2017 9:50 AM CRAY FISHING HAND) Anatomical Region Laterality Modality Upper Extremity Computed Radiogr aphy 08/31/2017 9:51 AM CRAY FISHING HAND Impressions 08/31/2017 10:53 AM CRAY FISHING HAND IMPRESSION: See below. Exam: XR ELBOW 3+ VW LEFT Date/Time of Exam: 08/31/2017 9:50 AM Reason For Exam: Bursitis of elbow. Findings: There are mild degenerative changes in the elbow. There is soft tissue thickening posterior to the elbow. No joint effusion identified. No fracture identified. [id number] Narrative Procedure Note Gunnar Hernandez MD - 08/31/2017 IMPRESSION: See below. Exam: XR ELBOW 3+ VW LEFT Date/Time of Exam: 08/31/2017 9:50 AM Reason For Exam: Bursitis of elbow. Findings: There are mild degenerative changes in the elbow. There is soft tissue thickening posterior to the elbow. No joint effusion identified. No fracture identified. [id number] Ari Chanel Sr., TRU DIAGNOSTIC IMAGIN G ORDERABLES Final Result documented in this encounter Visit Diagnoses Diagnosis Bursitis of elbow Olecranon bursitis Bursitis of elbow Olecranon bursitis documented in this encounter Additional Health Concerns Infection Onset Date Last Indicated Resolved Time MRSA Comment:Jessica 01/15/14 01/16/2014 11/12/2016 MRSA Comment:Jessica 11/12/16 11/12/2016 11/12/2016 documented as of this encounter Care Teams Will Call Order Clerk Relationship Specialty Start Date End Date Yanique Carnes, TRU Ordoñez [facility] [address] [place] [address] PCP - General NURSE PRACTITIONER 03/03/16 documented as of this encounter
--- OUTSIDE RECORDS SUMMARY | 2025-03-08 06:31 | XMS_ITS | Encounter Summary ---
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 Gender Identity Not on file Sexual Orientation Not on file documented as of this encounter Plan of Treatment Not on file documented as of this encounter Visit Diagnoses Not on filedocumented in this encounter Additional Health Concerns Infection Onset Date Last Indicated Resolved Time MRSA Comment:Jessica 01/15/14 01/16/2014 11/12/2016 MRSA Comment:Jessica 11/12/16 11/12/2016 11/12/2016 documented as of this encounter Care Teams System Software Developer Relationship Specialty Start Date End Date Ari Chanel Sr., FNP [address] [place] [address] PCP - General NURSE PRACTITIONER 03/03/16 documented as of this encounter
--- OUTSIDE RECORDS SUMMARY | 2025-03-08 06:31 | XMS_ITS | Encounter Summary ---
Author Organization [facility] Address [address] [place] [address] Care Team Providers Care Radiology Services Manager Name Role Phone Yanique Carnes, TRU, Ari Moy Primary Care Pro vider Encounter Details Date Type Department Care Team (Latest Contact Info) Description 07/17/2002 Outpatient Historical [facility] Family Medicine- [place] [address] [place], [place] [address] Uche Ortiz MD [address] 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 Gender Identity Not on file Sexual Orientation Not on file documented as of this encounter Plan of Treatment Not on file documented as of this encounter Visit Diagnoses Diagnosis Bullous myringitis- Primary Acute bronchitis Unspecified asthma(493.90) Unspecified asthma documented in this encounter Additional Health Concerns Infection Onset Date Last Indicated Resolved Time MRSA Comment:Jessica 01/15/14 01/16/2014 11/12/2016 MRSA Comment:Jessica 11/12/16 11/12/2016 11/12/2016 documented as of this encounter Care Teams Radiology Services Manager Relationship Specialty Start Date End Date Yanique Carnes, TRU Ordoñez [address] [place] [address] PCP - General NURSE PRACTITIONER 03/03/16 documented as of this encounter
--- OUTSIDE RECORDS SUMMARY | 2025-03-08 06:31 | XMS_ITS | Encounter Summary ---
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 Gender Identity Not on file Sexual Orientation Not on file documented as of this encounter Plan of Treatment Not on file documented as of this encounter Visit Diagnoses Diagnosis Pain in joint, shoulder region- Primary documented in this encounter Additional Health Concerns Infection Onset Date Last Indicated Resolved Time MRSA Comment:Jessica 01/15/14 01/16/2014 11/12/2016 MRSA Comment:Jessica 11/12/16 11/12/2016 11/12/2016 documented as of this encounter Care Teams Sales Associate Cashier Relationship Specialty Start Date End Date Ari Chanel Sr., FNP [address] [place] [address] PCP - General NURSE PRACTITIONER 03/03/16 documented as of this encounter
--- OUTSIDE RECORDS SUMMARY | 2025-03-08 06:31 | XMS_ITS | Encounter Summary ---
Author Organization [facility] Address [address] [place] [address] Care Team Providers Care Acid Tender Name Role Phone Yanique Carnes, Ari OTT Primary Care Pro vider Encounter Details Date Type Department Care Team (Latest Contact Info) Description 04/07/1999 Outpatient Historical [facility] Gunnar Bueno MD [address] [place] [phone] Open wound of upper arm, with tendon involvement (Primary Dx); Angioneurotic edema; Other and unspecified adverse effect of drug, medicinal and biological substance; Follow-up examination following surgery Social History Tobacco Use Types Packs/Day Years Used Date Smoking Tobacco: Never Assessed Sex and Gender Information Value Date Recorded Sex Assigned at Not on file 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 Gender Identity Not on file Sexual Orientation Not on file documented as of this encounter Plan of Treatment Not on file documented as of this encounter Visit Diagnoses Diagnosis Open wound of upper arm, with tendon involvement- Primary Angioneurotic edema Angioneurotic edema not elsewhere classified Other and unspecified adverse effect of drug, medicinal and biological substance Follow-up examination following surgery documented in this encounter Additional Health Concerns Infection Onset Date Last Indicated Resolved Time MRSA Comment:Jessica 01/15/14 01/16/2014 11/12/2016 MRSA Comment:Jessica 4/20/17 11/12/2016 11/12/2016 documented as of this encounter Care Teams Acid Tender Relationship Specialty Start Date End Date Yanique Carnes, TRU Ordoñez [address] [place] [address] PCP - General NURSE PRACTITIONER 03/03/16 documented as of this encounter
--- OUTSIDE RECORDS SUMMARY | 2025-03-08 06:31 | XMS_ITS | Encounter Summary ---
Author Organization [facility] Address [address] [place] [address] Care Team Providers Care Family Physician Name Role Phone TRU Chanel Sr., Michael Dave Primary Care Pro vider Encounter Details Date Type Department Care Team (Latest Contact Info) Description 10/06/1999 Outpatient Historical [facility] Gunnar Bueno MD [address] [place] [phone] Other and unspecified adverse effect of drug, medicinal and biological substance (Primary Dx); Open wound of upper arm, with tendon involvement; Surgical convalescence Social History Tobacco Use Types Packs/Day Years Used Date Smoking Tobacco: Never Assessed Sex and Gender Information Value Date Recorded Sex Assigned at Not on file 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 Gender Identity Not on file Sexual Orientation Not on file documented as of this encounter Plan of Treatment Not on file documented as of this encounter Visit Diagnoses Diagnosis Other and unspecified adverse effect of drug, medicinal and biological substance- Primary Open wound of upper arm, with tendon involvement Surgical convalescence Convalescence following surgery documented in this encounter Additional Health Concerns Infection Onset Date Last Indicated Resolved Time MRSA Comment:Jessica 01/15/14 01/16/2014 11/12/2016 MRSA Comment:Jessica 11/12/16 11/12/2016 11/12/2016 documented as of this encounter Care Teams Family Physician Relationship Specialty Start Date End Date Ari Chanel Sr., FNP [address] [place] [address] PCP - General NURSE PRACTITIONER 03/03/16 documented as of this encounter
--- OUTSIDE RECORDS SUMMARY | 2025-03-08 06:31 | XMS_ITS | Encounter Summary ---
Author Organization [facility] Address [address] [place] [address] Care Team Providers Care Building Tech Name Role Phone Yanique Carnes, Ari OTT Primary Care Pro vider Encounter Details Date Type Department Care Team (Latest Contact Info) Description 05/30/2002 Outpatient Historical [facility] Family Medicine- [place] [address] [place], [place] [address] Uche Ortiz MD [address] [facility] [address] [place] [phone] ACUTE PHARYNGITIS (Primary Dx); ACUTE BRONCHITIS; ABDOMINAL PAIN UNSPEC SITE Social History Tobacco Use Types Packs/Day Years Used Date Smoking Tobacco: Never Assessed Sex and Gender Information Value Date Recorded Sex Assigned at Not on file 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 Gender Identity Not on file Sexual Orientation Not on file documented as of this encounter Plan of Treatment Not on file documented as of this encounter Visit Diagnoses Diagnosis Acute pharyngitis- Primary Acute bronchitis Abdominal pain, unspecified site documented in this encounter Additional Health Concerns Infection Onset Date Last Indicated Resolved Time MRSA Comment:Jessica 01/15/14 01/16/2014 11/12/2016 MRSA Comment:Jessica 11/12/16 11/12/2016 11/12/2016 documented as of this encounter Care Teams Building Tech Relationship Specialty Start Date End Date Ari Chanel Sr., FNP [address] [place] [address] PCP - General NURSE PRACTITIONER 03/03/16 documented as of this encounter
--- OUTSIDE RECORDS SUMMARY | 2025-03-08 06:31 | XMS_ITS | Encounter Summary ---
Author Organization [facility] Address [address] [place] [address] Care Team Providers Care Field Evidence Technician Name Role Phone TRU Chanel Sr., Michael Dave Primary Care Pro vider Encounter Details Date Type Department Care Team (Latest Contact Info) Description 09/16/2004 Outpatient Historical [facility] Family Medicine- [place] [address] [place], [place] [address] Larissa Arreguin NP NO ADDRESS ON FILE ACUTE SINUSITIS NOS (Primary Dx); BRONCHITIS NOS; CERVICALGIA Social History Tobacco Use Types Packs/Day Years Used Date Smoking Tobacco: Never Assessed Sex and Gender Information Value Date Recorded Sex Assigned at Not on file 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 Gender Identity Not on file Sexual Orientation Not on file documented as of this encounter Plan of Treatment Not on file documented as of this encounter Visit Diagnoses Diagnosis Acute sinusitis, unspecified- Primary Bronchitis, not specified as acute or chronic Cervicalgia documented in this encounter Additional Health Concerns Infection Onset Date Last Indicated Resolved Time MRSA Comment:Jessica 01/15/14 01/16/2014 11/12/2016 MRSA Comment:Jessica 11/12/16 11/12/2016 11/12/2016 documented as of this encounter Care Teams Field Evidence Technician Relationship Specialty Start Date End Date Ari Chanel Sr., FNP [address] [place] [address] PCP - General NURSE PRACTITIONER 03/03/16 documented as of this encounter
--- OUTSIDE RECORDS SUMMARY | 2025-03-08 06:31 | XMS_ITS | Encounter Summary ---
Author Organization [facility] Address [address] [place] [address] Care Team Providers Care Typing Office Worker Name Role Phone TRU Chanel Sr., Michael Dave Primary Care Pro vider Encounter Details Date Type Department Care Team (Latest Contact Info) Description 03/10/1999 Outpatient Historical [facility] Gunnar Bueno MD [address] [place] [phone] Follow-up examination following surgery (Primary Dx) Social History Tobacco Use Types Packs/Day Years Used Date Smoking Tobacco: Never Assessed Sex and Gender Information Value Date Recorded Sex Assigned at Not on file 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 Gender Identity Not on file Sexual Orientation Not on file documented as of this encounter Plan of Treatment Not on file documented as of this encounter Visit Diagnoses Diagnosis Follow-up examination following surgery- Primary documented in this encounter Additional Health Concerns Infection Onset Date Last Indicated Resolved Time MRSA Comment:Jessica 01/15/14 01/16/2014 11/12/2016 MRSA Comment:Jessica 11/12/16 11/12/2016 11/12/2016 documented as of this encounter Care Teams Typing Office Worker Relationship Specialty Start Date End Date Ari Chanel Sr., FNP [address] [place] [address] PCP - General NURSE PRACTITIONER 03/03/16 documented as of this encounter
--- OUTSIDE RECORDS SUMMARY | 2025-03-08 06:31 | XMS_ITS | Encounter Summary ---
Author Organization [facility] Address [address] [facility] Attn: [place] [address] Care Team Providers Care Septic Technician Name Role Phone Yanique Carnes, TRU, Ari Moy Primary Care Pro vider Encounter Details Date Type Department Care Team (Late st Contact Info) Description 06/01/2001 Outpatient Historical Gunnar Bueno MD [address] [place] [phone] Social History Tobacco Use Types Packs/Day Years Used Date Smoking Tobacco: Never Assessed Sex and Gender Information Value Date Recorded Sex Assigned at Not on file 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 Gender Identity Not on file Sexual Orientation Not on file documented as of this encounter Plan of Treatment Not on file documented as of this encounter Visit Diagnoses Not on filedocumented in this encounter Additional Health Concerns Infection Onset Date Last Indicated Resolved Time MRSA Comment:Jessica 01/15/14 01/16/2014 11/12/2016 MRSA Comment:Jessica 11/12/16 11/12/2016 11/12/2016 documented as of this encounter Care Teams Septic Technician Relationship Specialty Start Date End Date Ari Chanel Sr., FNP [address] [place] [address] PCP - General NURSE PRACTITIONER 03/03/16 documented as of this encounter
--- OUTSIDE RECORDS SUMMARY | 2025-03-08 06:31 | XMS_ITS | Encounter Summary ---
Author Organization [facility] Address [address] [place] [address] Care Team Providers Care Chain Pegger Name Role Phone TRU Chanel Sr., Ari Moy Primary Care Pro vider Encounter Details Date Type Department Care Team (Latest Contact Info) Description 02/27/2005 Outpatient Historical [facility] Family Medicine- [place] [address] [place], [place] [address] Larissa Arreguin NP NO ADDRESS ON FILE ACUTE BRONCHITIS (Primary Dx); ASTHMA UNSPECIFIED Social History Tobacco Use Types Packs/Day Years Used Date Smoking Tobacco: Never Assessed Sex and Gender Information Value Date Recorded Sex Assigned at Not on file 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 Gender Identity Not on file Sexual Orientation Not on file documented as of this encounter Plan of Treatment Not on file documented as of this encounter Visit Diagnoses Diagnosis Acute bronchitis- Primary Unspecified asthma(493.90) Unspecified asthma documented in this encounter Additional Health Concerns Infection Onset Date Last Indicated Resolved Time MRSA Comment:Jessica 01/15/14 01/16/2014 11/12/2016 MRSA Comment:Jessica 11/12/16 11/12/2016 11/12/2016 documented as of this encounter Care Teams Chain Pegger Relationship Specialty Start Date End Date Air Chanel Sr., FNP [address] [place] [address] PCP - General NURSE PRACTITIONER 03/03/16 documented as of this encounter
--- OUTSIDE RECORDS SUMMARY | 2025-03-08 06:31 | XMS_ITS | Encounter Summary ---
Author Organization [facility] Address [address] [place] [address] Care Team Providers Care Tire Tester Name Role Phone TRU Chanel Sr., Michael Dave Primary Care Pro vider Encounter Details Date Type Department Care Team (Latest Contact Info) Description 07/03/2005 Outpatient Historical [facility] Medicine [address] [place] [phone] Larissa Arreguin NP NO ADDRESS ON FILE SHLDR/UPPER ARM INJURY NOS (Primary Dx); ELB/FOREARM/WRST INJURY NOS; SPASM OF MUSCLE Social History Tobacco Use Types Packs/Day Years Used Date Smoking Tobacco: Never Assessed Sex and Gender Information Value Date Recorded Sex Assigned at Not on file 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 Gender Identity Not on file Sexual Orientation Not on file documented as of this encounter Plan of Treatment Not on file documented as of this encounter Visit Diagnoses Diagnosis Injury, other and unspecified, shoulder and upper arm- Primary Injury, other and unspecified, elbow, forearm, and wrist Spasm of muscle documented in this encounter Additional Health Concerns Infection Onset Date Last Indicated Resolved Time MRSA Comment:Jessica 01/15/14 01/16/2014 11/12/2016 MRSA Comment:Jessica 11/12/16 11/12/2016 11/12/2016 documented as of this encounter Care Teams Tire Tester Relationship Specialty Start Date End Date Ari Chanle Sr., FNP [address] [place] [address] PCP - General NURSE PRACTITIONER 03/03/16 documented as of this encounter
--- OUTSIDE RECORDS SUMMARY | 2025-03-08 06:31 | XMS_ITS | Encounter Summary ---
Author Organization [facility] Address [address] [place] [address] Care Team Providers Care Lens Maker Name Role Phone TRU Chanel Sr., Michael Dave Primary Care Pro vider Encounter Details Date Type Department Care Team (Late st Contact Info) Description 09/22/2007 Outpatient Historical 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 Gender Identity Not on file Sexual Orientation Not on file documented as of this encounter Plan of Treatment Not on file documented as of this encounter Visit Diagnoses Not on filedocumented in this encounter Additional Health Concerns Infection Onset Date Last Indicated Resolved Time MRSA Comment:Jessica 01/15/14 01/16/2014 11/12/2016 MRSA Comment:Jessica 11/12/16 11/12/2016 11/12/2016 documented as of this encounter Care Teams Lens Maker Relationship Specialty Start Date End Date Ari Chanel Sr., FNP [address] [place] [address] PCP - General NURSE PRACTITIONER 03/03/16 documented as of this encounter
[2025-03-08] MEDS: HYDROcodone-acetaminophen 5-325 mg Tablet PO ×4 (07:31→21:03)
[2025-03-08] MEDS: metoprolol succinate ER (24 HR) 25 mg Tablet PO (08:16)
[2025-03-08] MEDS: diclofenac 1% Topical Gel 100 gm 1 APPLIC TOPICAL ×3 (08:16→20:56)
--- NOTE | 2025-03-08 10:08 | PC.CHAP ---
Pastoral Care Encounter/Spiritual Assessment Type of Contact [] Declined long chain quiller tender visit [] Patient/Family/Request visit [] Outpatient visit [] Follow-up visit [] Physician referral [] Code/Alert [x] Routine visit [] Staff referral [] Actively dying [] Patient sleeping [] Family support [] [] Out of room [] Palliative care [] [] Receiving care in room [] Pre-surgical visit [] Trauma [] Long length of stay [] ICU visit [] Other: Relational/Emotional Strength [x] Patient feels connected with others/family/visitors/staff [] Distress [] Loneliness/isolation [] Abandonment Spirituality of Patient [x] Person of Aimee [] Attends Mandaen of their Aimee [x] Believes in Prayer [] Reads Bible or Nondenominational materials [] There are Spiritual issues to be addressed Incident Manager Interventions [x] Prayer [x] Active listening [x] Non-anxious presence [x] Spiritual/emotional support [] Crisis/trauma care [] Spiritual counseling [] Bereavement support [] Provided bereavement packet [] Provided Bible/devotional materials [] Provided toy/stuffed animal, coloring book to patient or family member [] Provided Communion [] Anointing/Sallis [] Salvation [x] Completed spiritual assessment [] Other: Impact on Illness or Injury [] Angry [] Fearful [] Anxious [] Often cries [] Exhaustion [] Unable to work [] Unable to attend pentecostal [] Unable to walk/stand [] Unable to read [] Unable to drive [] Unable to eat/drink [] Unable to sleep [] Unable to be with family [] Patient intubated [] Other: Summary Time spent with patient 5 min
--- NOTE | 2025-03-08 10:27 | PM.PN ---
Subjective Subjective: Patient is in severe pain today sitting up in chair. Vitals/I&O/Wt Last Vital Signs Temp 98.2 F 03/08/25 05:09 Pulse 87 03/08/25 07:39 Resp 20 H 03/08/25 07:39 BP 126/82 03/08/25 05:09 Pulse Ox 95 03/08/25 07:39 O2 Del Method Room Air 03/08/25 07:39 O2 Flow Rate 2 03/07/25 17:57 03/07/25 03/08/25 03/08/25 22:59 06:59 14:59 Intake Total 750 / 800 1023.5 / 1823.5 480 / 480 Output Total 1200 / 1200 1000 / 2200 Balance -450 / -400 23.5 / -376.5 480 / 480 Weight last 48 hrs Weight 184 lb Weight 187 lb 4 oz Weight 184 lb Physical Exam Narrative: Patient is neurovasc intact in severe pain. At this point he is shaking when he stands. Will keep the drain in for 1 more day Urinary Catheter Management: Figueroa: Cath Placed During This Visit: yes, but has since been removed by the nurse Reason for Continuing Indwelling Catheter: Other Urinary Catheter Date of Insertion: 03/07/25 Urinary Catheter Time of Insertion: 11:31 Date Urinary Catheter Removed: 03/08/25 Time Urinary Catheter Discontinued: 06:42 A&P Assessment and plan 1. Status post cervical spinal fusion: Patient is postop day 1 posterior cervical fusion and screw removal. At this point will keep him here 1 more day for pain control. And is to keep the drain in for more day as well. PDMP PDMP Reviewed: Not Reviewed Attestations Medical Necessity Statement*: Pain control Coding Level of Care Code Acute Code for Chg Fwd Diagnoses Status post cervical spinal fusion Z98.1
[2025-03-08] MEDS: ATORVASTATIN 10 MG TABLET 20 MG PO (16:08)
[2025-03-09] VITALS (7 sets, daily range): BP systolic 126–134; BP diastolic 78–86; PULSE 69–89; RESP 16–20; TEMP 36.4–36.6; O2SAT 94–100
[2025-03-09] MEDS: HYDROcodone-acetaminophen 5-325 mg Tablet PO ×2 (03:11→09:35)
[2025-03-09] MEDS: diclofenac 1% Topical Gel 100 gm 1 APPLIC TOPICAL (08:41)
[2025-03-09] MEDS: metoprolol succinate ER (24 HR) 25 mg Tablet PO (08:42)
--- NOTE | 2025-03-09 10:08 | PM.DCS ---
Discharge Providers Date of Admission: 03/07/25 17:27 Date of Discharge: March 09, 2025 Attending Provider at Admission: Damian Fishman DO Attending Provider at Discharge: Damian Fishman DO Primary Care Provider: Siomara Anne MD Diagnoses at Discharge Discharge Diagnosis 1. Status post cervical spinal fusion: Reason for Visit Reason for Visit: [id number] Physical Exam Narrative: Patient doing well has burning sensation in the back of his neck otherwise pain is controlled. Strength 5 out of 5. Urinary Catheter Management: Figueroa: Cath Placed During This Visit: yes, but has since been removed by the nurse Reason for Continuing Indwelling Catheter: Other Urinary Catheter Date of Insertion: 03/07/25 Urinary Catheter Time of Insertion: 11:31 Date Urinary Catheter Removed: 03/08/25 Time Urinary Catheter Discontinued: 06:42 Discharge Data Studies Completed and Pending Completed Studies During Hospitalization Category Date Time Status XR cervical spine 3V* [id number] Routine Exams 03/07/25 16:18 Completed Radiology Impressions Cervical Spine X-Ray 03/07/25 16:18 Impression: Posterior cervical fusion. Laboratory Results Urine Opiates Screen Negative ng/mL (Negative) 03/07/25 08:12 Ur Barbiturates Screen Negative ng/mL (Negative) 03/07/25 08:12 Ur Phencyclidine Scrn Negative ng/mL (Negative) 03/07/25 08:12 Ur Amphetamines Screen Negative ng/mL (Negative) 03/07/25 08:12 U Benzodiazepines Scrn Negative ng/mL (Negative) 03/07/25 08:12 Urine Cocaine Screen Negative ng/mL (Negative) 03/07/25 08:12 U Marijuana (THC) Screen Positive ng/mL (Negative) H 03/07/25 08:12 Vitals Last Vital Signs Temp 97.5 F L 03/09/25 08:03 Pulse 88 03/09/25 08:20 Resp 19 H 03/09/25 08:03 BP 126/82 03/09/25 08:03 Pulse Ox 95 03/09/25 08:03 O2 Del Method Room Air 03/09/25 08:03 O2 Flow Rate 2 03/07/25 17:57 Discharge Plan Discharge Patient Disposition: Home Condition: Stable Prescriptions: New hydrocodone-acetaminophen 10-325 mg tablet 1 tab PO Q4H PRN (Reason: pain) 7 Days Qty: 42 0RF Continued pregabalin 100 mg capsule 100 mg PO TID 30 Days Qty: 90 3RF Rx Instructions: goodrx (DME) CERVICAL SPINE COLLAR See Rx Instructions .Route .MEDSUPPLY Qty: 1 0RF Rx Instructions: As directed diclofenac sodium 1 % gel 2 g topical QID Qty: 100 5RF Rx Instructions: apply to shoulder budesonide-formoterol [Symbicort] 160-4.5 mcg/actuation HFA aerosol inhaler 2 puff inhalation BID Qty: 10.2 5RF Rx Instructions: rinse mouth after use atorvastatin 20 mg tablet 20 mg PO .daily in evening 90 Days Qty: 90 3RF duloxetine 20 mg capsule,delayed release(DR/EC) 20 mg PO BID 90 Days Qty: 180 1RF methocarbamol 500 mg tablet 500 mg PO TID Qty: 90 5RF metoprolol succinate 25 mg tablet extended release 24 hr 25 mg PO DAILY 90 Days Qty: 90 2RF pantoprazole 20 mg tablet,delayed release (DR/EC) 20 mg PO DAILY 90 Days Qty: 90 3RF spironolactone 50 mg tablet 50 mg PO DAILY 90 Days Qty: 90 2RF tamsulosin [Flomax] 0.4 mg capsule 0.4 mg PO DAILY 90 Days Qty: 90 2RF albuterol sulfate [Ventolin HFA] 90 mcg/actuation HFA aerosol inhaler 2 puff inhalation Q6H PRN (Reason: sob) Rx Instructions: INHALE 2 PUFFS BY MOUTH EVERY 6 HOURS NEEDED FOR SHORTNESS OF BREATH OR WHEEZING Spiriva Respimat 2.5 mcg/actuation mist 2 inh inhalation DAILY Rx Instructions: INHALE 2 SPRAY(S) BY MOUTH IN THE MORNING baclofen 20 mg tablet 20 mg PO TID PRN (Reason: neck pain) Other Ambulatory Orders: DME: Rito (Order) Location: None Selected Ordered By: Damian Fishman Referrals: Damian Fishman DO [Physician, Orthopedics] - 03/15/25 1:15 pm Referral Note: Discharge Diet: Advance as tolerated Discharge Activity: Limit activity as instructed Patient Instructions: Acute Wound Care (DC), Opioid Safety, Post Anesthesia Care, Patient Portal & Tirso Instructions Activity Restrictions/Additional Instructions: Thank you for choosing [facility] for your care! The following is a list of instructions, from your provider, to follow upon your discharge to ensure you have the optimal recovery from your recent injury or surgery. Anterior Cervical Discectomy and Fusion: What to Expect at Home Your Recovery Follow-up care is a yee part of your treatment and safety. Be sure to make and go to all appointments, and call your doctor if you are having problems. If you do not already have a follow-up appointment made, call office in the next 1-3 days to make follow up appointment for 2 weeks at [phone]. It is also a good idea to know your test results and keep a list of the medicines you take. You can expect your neck to feel stiff or sore after surgery. This should improve in the weeks after surgery. But it may take 4 to 6 months for you to get better completely. You may have trouble sitting or standing in one position for very long and may need pain medicine in the weeks after your surgery. It may take 4 to 6 weeks to get back to your usual activities, but it may depend on what kind of surgery you had. Your throat will feel sore and it may be difficult to swallow for the first 3 days after your surgery. As long as you can get liquids down without difficulty, this should slowly improve, otherwise call our office or seek medical attention if it becomes increasingly difficult to get anything down including liquids. Avoid hot liquids for first 3-5 days. Soothing foods/liquids such as jello, pudding, and luke warm soups are recommended until swallowing improves. Staying elevated will also help, it's advised you keep propped up at while sleeping to help reduce the swelling. You may use an ice pack directly on your incision or around it on the front of your neck, using a cloth to protect your skin; and a heating pad to the back of your neck as needed. Do not use over the counter anti-inflammatory medications (Ibuprofen, Motrin, Aleve, Advil, etc) Taking these meds after having a fusion can delay fusion rates, we recommend you avoid them for the first 3 months after your surgery. Dr. Fishman may advise you to work with a physical therapist to strengthen the muscles around your neck and back - this will be discussed at your follow - up appointments. The pain or numbness you were having in your arms before surgery should get better or go away completely. This care sheet gives you a general idea about how long it will take for you to recover. But each person recovers at a different pace. Follow the steps below to get better as quickly as possible. How can you care for yourself at home? Activity ? Rest when you feel tired. Getting enough sleep will help you recover. ? Try to walk each day. Start by walking a little more than you did the day before. Bit by bit, increase the amount you walk. Walking boosts blood flow and helps prevent pneumonia and constipation. Walking may also decrease your muscle soreness after surgery. ? No lifting anything that is more that 5 pounds. This may include heavy grocery bags and milk containers, a heavy briefcase or backpack, cat litter or dog food bags, a child, or a vacuum mainspring barrel assembly cleaner. ? Avoid strenuous activities, such as bicycle riding, jogging, weightlifting, or aerobic exercise, until your doctor says it is okay. ? Do not drive until your follow-up visit after your surgery, or until your doctor says it isokay. ? Avoid taking long car trips for 2 to 4 weeks after surgery. Your neck may become tired and painful from sitting too long in one position. ? You will probably need to take 4 to 6 weeks off from work. It depends on the type of work you do and how you feel. ? You may have sex as soon as you feel able, but avoid positions that put stress on your neck or cause pain. Diet ? You can eat your normal diet. If your stomach is upset, try bland, low-fat foods like plain rice, broiled chicken, toast, and yogurt ? Drink plenty of fluids. If you have kidney, heart, or liver disease and have to limit fluids, talk with your doctor before you increase the amount of fluids you drink. ? You may notice that your bowel movements are not regular right after your surgery. This is common. Try to avoid constipation and straining with bowel movements. You may want to take a fiber supplement every day. If you have not had a bowel movement after a couple of days, ask your doctor about taking a mild laxative. Medicines ? Take pain medicines exactly as directed. 1. If Dr. Fishman gave you a prescription medicine for pain, take lt as prescribed. 2. Do not take two or more pain medicines at the same time unless the doctor told you to. Many pain medicines have acetaminophen, which is Tylenol. Too much acetaminophen {Tylenol) can be harmful. 3. If you think your pain pill is making you sick to your stomach: 4. Take your pills after meals (unless your doctor has told you not to). 5. Ask your Dr. for a different pain pill. Incisioncare ? Remove your dressing 48hours after your surgery. Ok to shower and get the incision wet. Do not overtly wash your incision. When done, pad dry, leave open to air thereafter. Avoid creams and ointments directly on your incision. ? Your sutures in the incision will dissolve and fall out on their own. ? Keep the area clean and dry. You may cover it with a gauze bandage if it weeps or rubs against clothing; if you choose to do this, change the dressing everyday. Other instructions ? Use a heating pad, hot water bottle, or gentle massage on your back to reduce stiffness. Avoid putting heat on your incision When should you call for help? ? Call 911 anytime you think you may need emergency care. For example, call if: ? You pass out (lose consciousness). ? You have sudden chest pain and shortness of breath, or you cough upblood. ? You cannot swallow. ? You have severe pain in your neck or back. ? Call your Dr. or seek immediate medical care if: ? You have pain that does not get better after you take pain pills. ? You have loose stitches, or your incision comes open. ? You have blood or fluid draining from the incision. ? You have signs of infection, such as: 1. Increased pain, swelling, warmth, or redness. 2. Red streaks leading from the site. 3. Pus draining from the site. 4. Swollen lymph nodes in your neck or armpits. 5. A fever. ? You have severe pain in your arms. ? You have new or increased weakness or numbness in your arms. ? Watch closely for any changes in your health, and be sure to contact your doctor if: ? You do not have a bowel movement after taking a laxative. Discharge Attestations Time Spent in Discharge Care*: less than 30 min Quality Metrics Clinical Quality Measures [ No reported AMI, CVA or VTE this stay] Coding Level of Care Code Acute Code for Chg Fwd Diagnoses Status post cervical spinal fusion Z98.1
--- NOTE | 2025-03-09 10:59 | PC.NURSE ---
50 ml drained from hemovac, drain removed, pressure dressing applied.
== END 2025-03-09 12:15 | disposition home or self-care (01) | DRG 451 ==
LOC: MEDSURG 03-08 06:29
PROVIDERS: Student in an Organized Health Care Education/Training Program; Admitting Provider Orthopaedic Surgery; PCP Family Medicine; Visit Provider Orthopaedic Surgery
PROC: 0RG6071 Fusion of Thoracic Vertebral Joint with Autologous Tissue Substitute, Posterior Approach, Posterior Column, Open Approach (ICD-10-PCS; principal; 2025-03-07 10:20)
PROC: 0RG6071 Fusion of Thoracic Vertebral Joint with Autologous Tissue Substitute, Posterior Approach, Posterior Column, Open Approach (ICD-10-PCS; CPT 22600; 2025-03-07 10:20)
PROC: 0RG6071 Fusion of Thoracic Vertebral Joint with Autologous Tissue Substitute, Posterior Approach, Posterior Column, Open Approach (ICD-10-PCS; CPT 63001; 2025-03-07 10:20)
DX: M48.02 Spinal stenosis, cervical region (principal); G99.2 Myelopathy in diseases classified elsewhere; M96.0 Pseudarthrosis after fusion or arthrodesis; M54.12 Radiculopathy, cervical region; J44.9 Chronic obstructive pulmonary disease, unspecified; F17.210 Nicotine dependence, cigarettes, uncomplicated; I10 Essential (primary) hypertension; K21.9 Gastro-esophageal reflux disease without esophagitis; F15.10 Other stimulant abuse, uncomplicated; E78.2 Mixed hyperlipidemia; J32.9 Chronic sinusitis, unspecified; Z79.51 Long term (current) use of inhaled steroids; Z86.73 Personal history of transient ischemic attack (TIA), and cerebral infarction without residual deficits
CPT/HCPCS: 51702; 72040; 76000; 80306; 94640; 97163; A7015; C1713; C1776; J0131; J0330; J1100; J1171; J1885; J2250; J2270; J2371; J2405; J2704; J3010; J3260; J3373; J3490; J7030; J7120; J7626; J9999; P9045

== ENCOUNTER → 2025-03-13 13:02 | Outpatient (BNVA) | payer MEDICAID, SELFPAY | PROVIDERS: PCP Family Medicine; Visit Provider Orthopaedic Surgery | DX: Z98.890 Other specified postprocedural states (principal) | CPT/HCPCS: 99024 ==

== ENCOUNTER → 2025-03-20 12:57 | Outpatient (BNVA) | payer MEDICAID, SELFPAY | PROVIDERS: PCP Family Medicine; Visit Provider Orthopaedic Surgery | DX: Z98.890 Other specified postprocedural states (principal); Z98.1 Arthrodesis status | CPT/HCPCS: 99024 ==

== ENCOUNTER → 2025-04-03 13:45 | Outpatient (BNVA) | payer MEDICAID, SELFPAY | PROVIDERS: PCP Family Medicine; Visit Provider Orthopaedic Surgery | DX: Z98.890 Other specified postprocedural states (principal); Z98.1 Arthrodesis status | CPT/HCPCS: 99024 ==

== ENCOUNTER 2025-04-24 15:48 | Emergency (ER) | payer MEDICAID, SELFPAY ==
[2025-04-24 15:52] VITALS: BP 126/84; PULSE 66; RESP 18; TEMP 36.6; O2SAT 100; BMI 28.1
--- OUTSIDE RECORDS SUMMARY | 2025-04-24 15:52 | XMS_ITS | Encounter Summary ---
Author Organization [facility] Address [address] [place] [address] Care Team Providers Care Ride Operator Name Role Phone TRU Chanel Sr., Michael Dave Primary Care Pro vider Encounter Details Date Type Department Care Team (Latest Contact Info) Description 08/02/2002 Outpatient Historical [facility] [place] Family Medicine- [place] [address] [place] [phone] Kym Condon MD NO ADDRESS ON FILE ACUTE SINUSITIS NOS (Primary Dx); Dysfunct eustachian tube Social History Tobacco Use Types Packs/Day Years Used Date Smoking Tobacco: Never Assessed Sex and Gender Information Value Date Recorded Sex Assigned at Not on file 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
--- OUTSIDE RECORDS SUMMARY | 2025-04-24 15:52 | XMS_ITS | Encounter Summary ---
Author Organization [facility] Address [address] [place] [address] Care Team Providers Care Miniature Set Builder Name Role Phone TRU Chanel Sr., Michael Dave Primary Care Pro vider Encounter Details Date Type Department Care Team (Late st Contact Info) Description 09/22/2007 Outpatient Historical [facility] Medicine [address] [place] [phone] Kym Condon MD NO ADDRESS ON FILE Social History Tobacco Use Types Packs/Day Years Used Date Smoking Tobacco: Never Assessed Sex and Gender Information Value Date Recorded Sex Assigned at Not on file 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 Gender Identity Not on file Sexual Orientation Not on file documented as of this encounter Plan of Treatment Not on file documented as of this encounter Visit Diagnoses Not on filedocumented in this encounter Additional Health Concerns Infection Onset Date Last Indicated Resolved Time MRSA Comment:Jessica 01/15/14 01/16/2014 11/12/2016 MRSA Comment:Jessica 11/12/16 11/12/2016 11/12/2016 documented as of this encounter Care Teams Miniature Set Builder Relationship Specialty Start Date End Date Ari Chanel Sr., FNP [address] [place] [address] PCP - General NURSE PRACTITIONER 03/03/16 documented as of this encounter
--- OUTSIDE RECORDS SUMMARY | 2025-04-24 15:52 | XMS_ITS | Encounter Summary ---
Author Organization [facility] Address [address] [place] [address] Care Team Providers Care Paraffin Plant Sweater Operator Name Role Phone TRU Chanel Sr., Michael Dave Primary Care Pro vider Encounter Details Date Type Department Care Team (Late st Contact Info) Description 09/13/2007 Outpatient Historical [facility] Family Medicine- [place] [address] [place], [place] [address] Larissa Arreguin NP NO ADDRESS ON FILE Social History Tobacco Use Types Packs/Day Years Used Date Smoking Tobacco: Never Assessed Sex and Gender Information Value Date Recorded Sex Assigned at Not on file 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 [facility]. Zithromax 250 Z-Rajendra, [...] what does not. Return p.r.n. SHAUN William [facility] Electronically Signed by SHAUN William 09/15/2007 12:28 , shital Torrez Document #: [id number] cc: documented in this encounter Plan of Treatment Not on file documented as of this encounter Visit Diagnoses Not on filedocumented in this encounter Additional Health Concerns Infection Onset Date Last Indicated Resolved Time MRSA Comment:Jessica 01/15/14 01/16/2014 11/12/2016 MRSA Comment:Jessica 11/12/16 11/12/2016 11/12/2016 documented as of this encounter Care Teams Paraffin Plant Sweater Operator Relationship Specialty Start Date End Date Yanique Carnes, TRU Ordoñez [address] [place] [address] PCP - General NURSE PRACTITIONER 03/03/16 documented as of this encounter
--- OUTSIDE RECORDS SUMMARY | 2025-04-24 15:52 | XMS_ITS | Encounter Summary ---
Author Organization [facility] Address [address] [place] [address] Care Team Providers Care Equipment Monitor Phototypesetting Name Role Phone TRU Chanel Sr., Michael Dave Primary Care Pro vider Encounter Details Date Type Department Care Team (Latest Contact Info) Description 03/19/2004 Outpatient Historical [facility] Family Medicine- [place] [address] [place], [place] [address] Larissa Arreguin, MIGUEL NO ADDRESS ON FILE DERMATOPHYTOSIS OF FOOT (Primary Dx); DERMATITIS NOS Social History Tobacco Use Types Packs/Day Years Used Date Smoking Tobacco: Never Assessed Sex and Gender Information Value Date Recorded Sex Assigned at Not on file 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
--- OUTSIDE RECORDS SUMMARY | 2025-04-24 15:52 | XMS_ITS | Encounter Summary ---
Author Organization [facility] Address [address] [place] [address] Care Team Providers Care Shingle Carrier Name Role Phone TRU Chanel Sr., Ari Moy Primary Care Pro vider Encounter Details Date Type Department Care Team (Latest Contact Info) Description 02/27/2005 Outpatient Historical [facility] Family Medicine- [place] [address] [place], [place] [phone] Larissa Arreguin NP NO ADDRESS ON FILE ACUTE BRONCHITIS (Primary Dx); ASTHMA UNSPECIFIED Social History Tobacco Use Types Packs/Day Years Used Date Smoking Tobacco: Never Assessed Sex and Gender Information Value Date Recorded Sex Assigned at Not on file 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
--- OUTSIDE RECORDS SUMMARY | 2025-04-24 15:52 | XMS_ITS | Encounter Summary ---
Author Organization [facility] Address [address] [place] [address] Care Team Providers Care Straw Hat Brusher Name Role Phone Yanique Carnes, Ari OTT Primary Care Pro vider Encounter Details Date Type Department Care Team (Latest Contact Info) Description 05/30/[address] 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
--- OUTSIDE RECORDS SUMMARY | 2025-04-24 15:52 | XMS_ITS | Encounter Summary ---
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 Gender Identity Not on file Sexual Orientation Not on file documented as of this encounter Plan of Treatment Not on file documented as of this encounter Visit Diagnoses Not on filedocumented in this encounter Additional Health Concerns Infection Onset Date Last Indicated Resolved Time MRSA Comment:Jessica 01/15/14 01/16/2014 11/12/2016 MRSA Comment:Jessica 11/12/16 11/12/2016 11/12/2016 documented as of this encounter Care Teams Foam Caster Relationship Specialty Start Date End Date Ari Chanel Sr., FNP [address] [place] [address] PCP - General NURSE PRACTITIONER 03/03/16 documented as of this encounter
--- OUTSIDE RECORDS SUMMARY | 2025-04-24 15:52 | XMS_ITS | Encounter Summary ---
Author Organization [facility] Address [address] [place] [address] Care Team Providers Care Fourdrinier Tender Name Role Phone TRU Chanel Sr., Michael Dave Primary Care Pro vider Encounter Details Date Type Department Care Team (Latest Contact Info) Description 07/03/2005 Outpatient Historical [facility] Medicine [address] [place] [phone] Larissa Arreguin NP NO ADDRESS ON FILE SHLDR/UPPER ARM INJURY NOS (Primary Dx); ELB/FOREARM/WRST INJURY NOS; SPASM OF MUSCLE Social History Tobacco Use Types Packs/Day Years Used Date Smoking Tobacco: Never Assessed Sex and Gender Information Value Date Recorded Sex Assigned at Not on file 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
--- OUTSIDE RECORDS SUMMARY | 2025-04-24 15:52 | XMS_ITS | Encounter Summary ---
Author Organization [facility] Address [address] [place] [address] Care Team Providers Care Elevator Mechanic Apprentice Name Role Phone TRU Chanel Sr., Michael Dave Primary Care Pro vider Encounter Details Date Type Department Care Team (Latest Contact Info) Description 09/16/2004 Outpatient Historical [facility] Family Medicine- [place] [address] [place], [place] [address] Larissa Arreguin NP NO ADDRESS ON FILE ACUTE SINUSITIS NOS (Primary Dx); BRONCHITIS NOS; CERVICALGIA Social History Tobacco Use Types Packs/Day Years Used Date Smoking Tobacco: Never Assessed Sex and Gender Information Value Date Recorded Sex Assigned at Not on file 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
--- OUTSIDE RECORDS SUMMARY | 2025-04-24 15:52 | XMS_ITS | Encounter Summary ---
Author Organization [facility] Address [address] [place] [address] Care Team Providers Care Bank Compliance Officer Name Role Phone TRU Chanel Sr., Michael Dave Primary Care Pro vider Encounter Details Date Type Department Care Team (Late st Contact Info) Description 09/24/2006 Outpatient Historical [facility] Imaging Services-[place] [address] [place] [address] Social History Tobacco Use Types Packs/Day Years Used Date Smoking Tobacco: Never Assessed Sex and Gender Information Value Date Recorded Sex Assigned at Not on file 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 Gender Identity Not on file Sexual Orientation Not on file documented as of this encounter Plan of Treatment Not on file documented as of this encounter Visit Diagnoses Not on filedocumented in this encounter Additional Health Concerns Infection Onset Date Last Indicated Resolved Time MRSA Comment:Jessica 01/15/14 01/16/2014 11/12/2016 MRSA Comment:Jessica 11/12/16 11/12/2016 11/12/2016 documented as of this encounter Care Teams Bank Compliance Officer Relationship Specialty Start Date End Date Ari Chanel Sr., FNP [address] [place] [address] PCP - General NURSE PRACTITIONER 03/03/16 documented as of this encounter
--- OUTSIDE RECORDS SUMMARY | 2025-04-24 15:52 | XMS_ITS | Encounter Summary ---
Author Organization [facility] Address [address] [place] [address] Care Team Providers Care Sanitation Inspector Name Role Phone Yanique Carnes, TRU, Ari Moy Primary Care Pro vider Encounter Details Date Type Department Care Team (Latest Contact Info) Description 07/17/2002 Outpatient Historical [facility] Family Medicine- [place] [address] [place], [place] [address] Uche Ortiz MD [address] [facility] [address] [place] [phone] BULLOUS MYRINGITIS (Primary Dx); ACUTE BRONCHITIS; UNS ASTHMA WOSTATUS ASTHMATICUS Social History Tobacco Use Types Packs/Day Years Used Date Smoking Tobacco: Never Assessed Sex and Gender Information Value Date Recorded Sex Assigned at Not on file 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
--- OUTSIDE RECORDS SUMMARY | 2025-04-24 15:52 | XMS_ITS | Encounter Summary ---
Author Organization [facility] Address [address] [place] [address] Care Team Providers Care Observation Assistant Name Role Phone TRU Chanel Sr., Michael Dave Primary Care Pro vider Encounter Details Date Type Department Care Team (Latest Contact Info) Description 09/23/2006 Outpatient Historical [facility] [address] [place] [phone] Larissa Arreguin NP NO ADDRESS ON FILE Unspecified Asthma (Primary Dx); Acute Bronchitis Social History Tobacco Use Types Packs/Day Years Used Date Smoking Tobacco: Never Assessed Sex and Gender Information Value Date Recorded Sex Assigned at Not on file 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
--- OUTSIDE RECORDS SUMMARY | 2025-04-24 15:53 | XMS_ITS | Encounter Summary ---
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
--- OUTSIDE RECORDS SUMMARY | 2025-04-24 15:53 | XMS_ITS | Encounter Summary ---
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
--- OUTSIDE RECORDS SUMMARY | 2025-04-24 15:53 | XMS_ITS | Encounter Summary ---
Author Organization [facility] Address [address] [place] [address] Care Team Providers Care Data Center Technician Name Role Phone TRU Chanel Sr., Michael Dave Primary Care Pro vider Encounter Details Date Type Department Care Team (Latest Contact Info) Description 10/06/1999 Outpatient Historical [facility] Gunnar Bueno MD [address] [place] [phone] Other and unspecified adverse effect of drug, medicinal and biological substance (Primary Dx); Open wound of upper arm, with tendon involvement; Surgical convalescence Social History Tobacco Use Types Packs/Day Years Used Date Smoking Tobacco: Never Assessed Sex and Gender Information Value Date Recorded Sex Assigned at Not on file 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
--- OUTSIDE RECORDS SUMMARY | 2025-04-24 15:53 | XMS_ITS | Encounter Summary ---
Author Organization [facility] Address [address] [place] [address] Care Team Providers Care Yard Hostler Name Role Phone TRU Chanel Sr., Michael Dave Primary Care Pro vider Encounter Details Date Type Department Care Team (Latest Contact Info) Description 02/24/1999 Outpatient Historical [facility] Gunnar Bueno MD [address] [place] [phone] Open wound of upper arm, with tendon involvement (Primary Dx); Injury to median nerve; Injury to ulnar nerve; Follow-up examination following surgery Social History Tobacco Use Types Packs/Day Years Used Date Smoking Tobacco: Never Assessed Sex and Gender Information Value Date Recorded Sex Assigned at Not on file 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
--- OUTSIDE RECORDS SUMMARY | 2025-04-24 15:53 | XMS_ITS | Encounter Summary ---
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
--- OUTSIDE RECORDS SUMMARY | 2025-04-24 15:53 | XMS_ITS | Encounter Summary ---
Author Organization [facility] Address [address] [place] [address] Care Team Providers Care Mass Spectrometry Manager Name Role Phone Yanique Carnes, Ari OTT Primary Care Pro vider Encounter Details Date Type Department Care Team (Latest Contact Info) Description 04/07/1999 Outpatient Historical [facility] Gunnar Bueno MD [address] [place] [phone] Open wound of upper arm, with tendon involvement (Primary Dx); Angioneurotic edema; Other and unspecified adverse effect of drug, medicinal and biological substance; Follow-up examination following surgery Social History Tobacco Use Types Packs/Day Years Used Date Smoking Tobacco: Never Assessed Sex and Gender Information Value Date Recorded Sex Assigned at Not on file Legal Sex Male 3:38 AM 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
--- OUTSIDE RECORDS SUMMARY | 2025-04-24 15:53 | XMS_ITS | Encounter Summary ---
Author Organization [facility] Address [address] [facility] Attn: [place] [address] Care Team Providers Care Extracorporeal Technician Name Role Phone Yanique Carnes, TRU, Ari Moy Primary Care Pro vider Encounter Details Date Type Department Care Team (Late st Contact Info) Description 06/01/2001 Outpatient Historical Gunnar Bueno MD [address] [place] [phone] Social History Tobacco Use Types Packs/Day Years Used Date Smoking Tobacco: Never Assessed Sex and Gender Information Value Date Recorded Sex Assigned at Not on file 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 Gender Identity Not on file Sexual Orientation Not on file documented as of this encounter Plan of Treatment Not on file documented as of this encounter Visit Diagnoses Not on filedocumented in this encounter Additional Health Concerns Infection Onset Date Last Indicated Resolved Time MRSA Comment:Jessica 01/15/14 01/16/2014 11/12/2016 MRSA Comment:Jessica 11/12/16 11/12/2016 11/12/2016 documented as of this encounter Care Teams Extracorporeal Technician Relationship Specialty Start Date End Date Ari Chanel Sr., FNP [address] [place] [address] PCP - General NURSE PRACTITIONER 03/03/16 documented as of this encounter
--- OUTSIDE RECORDS SUMMARY | 2025-04-24 15:53 | XMS_ITS | Encounter Summary ---
Author Organization [facility] Address [address] [place] [address] Care Team Providers Care Primary Teacher Name Role Phone TRU Chanel Sr., Ari Moy Primary Care Pro vider Encounter Details Date Type Department Care Team (Latest Contact Info) Description 04/13/2001 Outpatient Historical [facility] Gunnar Bueno MD [address] [place] [phone] Closed dislocation of shoulder, unspecified site (Primary Dx) Social History Tobacco Use Types Packs/Day Years Used Date Smoking Tobacco: Never Assessed Sex and Gender Information Value Date Recorded Sex Assigned at Not on file 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
--- OUTSIDE RECORDS SUMMARY | 2025-04-24 15:53 | XMS_ITS | Encounter Summary ---
Author Organization [facility] Address [address] [place] [address] Care Team Providers Care Fluxer Name Role Phone TRU Chanel Sr., Michael Dave Primary Care Pro vider Encounter Details Date Type Department Care Team (Latest Contact Info) Description 02/23/2001 Outpatient Historical [facility]- [address] [place], [place] [address] Jerson Moffett, NO ADDRESS ON FILE Pain in limb (Primary Dx) Social History Tobacco Use Types Packs/Day Years Used Date Smoking Tobacco: Never Assessed Sex and Gender Information Value Date Recorded Sex Assigned at Not on file Legal Sex Male 3:38 AM YARN COMBER Gender Identity Not on file Sexual Orientation [...] documented as of this encounter Care Teams Fluxer Relationship Specialty Start Date End Date Ari Chanel Sr., FNP [address] [place] [address] PCP - General NURSE PRACTITIONER 03/03/16 documented as of this encounter
--- OUTSIDE RECORDS SUMMARY | 2025-04-24 15:53 | XMS_ITS | Encounter Summary ---
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
--- OUTSIDE RECORDS SUMMARY | 2025-04-24 15:53 | XMS_ITS | Clinical Summary ---
Author Organization [facility] Address [address] [place] [address] Phone Care Team Providers Care Air Operations Manager Name Role Phone Yanique Carnes, TRU, [...] on file Legal Sex Male 3:38 AM FLAT EXAMINER Gender Identity Not on file Sexual Orientation Not on file Occupation Industry Job Start Date Job End Date Not on file Not on file Not on file Not on file Last Filed Vital Signs Vital Sign Reading Time Taken Comments Blood Pressure 115/78 10/12/2018 2:41 PM CDT Pulse 89 09/29/2018 12:25 PM FLAT EXAMINER Temperature 36.6 C (97.8 F) 09/29/2018 11:49 AM FLAT EXAMINER Respiratory Rate 20 09/29/2018 12:25 PM FLAT EXAMINER Oxygen Saturation 98% 09/29/2018 12:25 PM FLAT EXAMINER Inhaled Oxygen Concentration - - Weight 74.8 [...] 11/11/2026, 09/26/2008 Medical Devices Implanted Type Area Chassis Mechanic Device Identifier Shelf Expiration Date Model / Serial / Lot Wire Norman Trocar Dbl .[id number] - [id number] Implanted:Qty: 1 on 11/12/2016 by Galindo Dhillon MD at [facility] Right: Finger [facility]AS[employer] [facility] 03/11/2021 [id number] / / [id number] Description:Fight Index Fing er Wire K Trocar Dbl .[id number] - [id number] Implanted:Qty: 1 on 11/12/2016 by Galindo Dhillon MD at [facility] Wire Right: Finger BRASSELER [facility] 06/25/2021 [id number] / / [id number] Description:Right Ring Finge r Additional Health Concerns Infection Onset Date Last Indicated MRSA Comment:Jessica 01/15/14 01/16/2014 11/12/2016 MRSA Comment:Jessica 11/12/16 11/12/2016 11/12/2016 Insurance [place]ICAID [place] Advance Directives For more information, please contact: [phone] * Full Code (Latest Code Status on File) Date Activated Date Inactivated Comments 09/29/2018 9:36 AM 09/29/2018 3:04 PM * Full Code Date Activated Date Inactivated Comments 01/15/2014 6:22 PM 01/17/2014 2:01 PM Care Teams Air Operations Manager Relationship Specialty Start Date End Date Yanique Carnes, TRU Ordoñez [address] [place] [address] PCP - General NURSE PRACTITIONER 03/03/16
--- OUTSIDE RECORDS SUMMARY | 2025-04-24 15:53 | XMS_ITS | Clinical Summary ---
Author Organization [facility] Address [address] Attn: Epic Prelude ADT [place] [address] Care Team Providers Care Medical Referral Coordinator Name Role Phone Siomara Anne MD Primary Care Provider Allergies Active Allergy Reactions Criticality Noted Date [...] drink = 0.6 oz pur e alcohol) Feeling Safe Answer Date Recorded Are you in a relationship wi th someone who hurts you emotionally and/or physically? No 05/31/2023 Sex and Gender Information Value Date Recorded Sex Assigned at Not on file Legal Sex Male 1:15 AM CASHIER HOST/HOSTESS Gender Identity Not on file Sexual Orientation Not on file Last Filed Vital Signs Vital Sign Reading Time Taken Comments Blood Pressure 126/97 05/31/2023 6:00 PM CASHIER HOST/HOSTESS Pulse 100 05/31/2023 6:00 PM CASHIER HOST/HOSTESS Temperature 37 C (98.6 F) 05/31/2023 4:22 PM CASHIER HOST/HOSTESS Respiratory Rate 16 05/31/2023 6:00 PM CASHIER HOST/HOSTESS Oxygen Saturation 100% 05/31/2023 6:00 PM CASHIER HOST/HOSTESS Inhaled Oxygen Concentration - - Weight 85.9 kg (189 lb 6.4 oz) 05/31/2023 4:22 P M CASHIER HOST/HOSTESS Height 167.6 cm (5' 6 ) 05/31/2023 4:22 PM CASHIER HOST/HOSTESS Body Mass Index 30.57 05/31/2023 4:22 PM CASHIER HOST/HOSTESS Plan of Treatment Health Maintenance Due Date [...] 11/11/2026, 09/26/2008 Medical Devices Implanted Type Area Director Public Device Identifier Shelf Expiration Date Model / Serial / Lot Wire Norman Trocar Dbl .[id number] - [id number] Implanted:Qty: 1 on 11/12/2016 by Galindo Dhillon MD Wire Right: Finger [employer]ER [facility] 03/11/2021 [id number] / / [id number] Description:Fight Index Fing er Wire K Trocar Dbl .[id number] - [id number] Implanted:Qty: 1 on 11/12/2016 by Galindo Dhillon MD Wire Right: Finger [employer] [facility] 06/25/2021 [id number] / / [id number] Description:Right Ring Finge r Insurance Care Teams Medical Referral Coordinator Relationship Specialty Start Date End Date Siomara Anne MD PCP - General Family Practice 03/14/21
--- OUTSIDE RECORDS SUMMARY | 2025-04-24 15:53 | XMS_ITS | Encounter Summary ---
Author Organization [facility] Address [address] [place] [address] Care Team Providers Care Accounting Generalist Name Role Phone TRU Chanel Sr., Michael Dave Primary Care Pro vider Encounter Details Date Type Department Care Team (Late st Contact Info) Description 08/31/2017 [facility] [address] [place] [phone] Ari Chanel Sr., FNP [address] [place], [place] [address] Bursitis of elbow Social History Tobacco Use Types Packs/Day Years Used Date Smoking Tobacco: Some Days Smokeless Tobacco: Current Alcohol Use Standard Drinks/Week Comments No 0 (1 standard drink = 0.6 oz pur e alcohol) Sex and Gender Information Value Date Recorded Sex Assigned at Not on file Legal Sex Male 3:38 AM REHABILITATION LIAISON Gender Identity Not on file Sexual Orientation Not on file Occupation Industry Job Start Date Job End Date Not on file Not on file Not on file Not on file documented as of this encounter Plan of Treatment Not on file documented as of this encounter Results * XR ELBOW 3+ VW LEFT (08/31/2017 9:50 AM REHABILITATION LIAISON) Anatomical Region Laterality Modality Upper Extremity Computed Radiogr aphy 08/31/2017 9:51 AM REHABILITATION LIAISON Impressions 08/31/2017 10:53 AM REHABILITATION LIAISON IMPRESSION: See below. Exam: XR ELBOW 3+ VW LEFT Date/Time of Exam: 08/31/2017 9:50 AM Reason For Exam: Bursitis of elbow. Findings: There are mild degenerative changes in the elbow. There is soft tissue thickening posterior to the elbow. No joint effusion identified. No fracture identified. [id number] Narrative Procedure Note Gunnar Hernandez MD - 08/31/2017 IMPRESSION: See below. Exam: XR ELBOW 3+ VW LEFT Date/Time of Exam: 08/31/2017 9:50 AM Reason For Exam: Bursitis of elbow. Findings: There are mild degenerative changes in the elbow. There is soft tissue thickening posterior to the elbow. No joint effusion identified. No fracture identified. [id number] Ari Chanel Sr., TRU DIAGNOSTIC IMAGIN G ORDERABLES Final Result documented in this encounter Visit Diagnoses Diagnosis Bursitis of elbow Olecranon bursitis Bursitis of elbow Olecranon bursitis documented in this encounter Additional Health Concerns Infection Onset Date Last Indicated Resolved Time MRSA Comment:Jessica 01/15/14 01/16/2014 11/12/2016 MRSA Comment:Jessica 11/12/16 11/12/2016 11/12/2016 documented as of this encounter Care Teams Accounting Generalist Relationship Specialty Start Date End Date Yanique Carnes, TRU Ordoñez [facility] [address] [place] [address] PCP - General NURSE PRACTITIONER 03/03/16 documented as of this encounter
--- OUTSIDE RECORDS SUMMARY | 2025-04-24 15:53 | XMS_ITS | Encounter Summary ---
Author Organization [facility] Address [address] [place] [address] Care Team Providers Care Doll Eye Setter Name Role Phone TRU Chanel Sr., Michael Dave Primary Care Pro vider Encounter Details Date Type Department Care Team (Latest Contact Info) Description 03/10/1999 Outpatient Historical [facility] Gunnar Bueno MD [address] [place] [phone] Follow-up examination following surgery (Primary Dx) Social History Tobacco Use Types Packs/Day Years Used Date Smoking Tobacco: Never Assessed Sex and Gender Information Value Date Recorded Sex Assigned at Not on file 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
--- NOTE | 2025-04-24 17:28 | XRR_ITS ---
PROCEDURE INFORMATION: Exam: XR Right Ribs with PA Chest Exam date and time: 04/24/2025 5:43 PM Age: 54 years old Clinical indication: Chest wall pain; Right; Additional info: Pain x3 days TECHNIQUE: Imaging protocol: Radiologic exam of the right ribs with PA chest. Views: 3 views COMPARISON: CR XR chest 1V portable [id number] 12/15/2023 2:38 PM FINDINGS: Lungs: Unremarkable. No consolidation. Pleural spaces: Unremarkable. No pleural effusion. No pneumothorax. Heart/Mediastinum: Unremarkable. No cardiomegaly. Bones/joints: Postsurgical changes of the cervical spine. No rib fractures identified. Previous distal right clavicle resection. XR/XR ribs RT mn 3V w CXR1V [id number] IMPRESSION: No acute cardiopulmonary finding. No rib fracture identified.
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
[2025-04-24] MEDS: orphenadrine 30 mg/mL Inj 2 mL 60 MG IM (18:20)
[2025-04-24 18:31] VITALS: BP 140/86; PULSE 53; RESP 16; O2SAT 95
[2025-04-24 19:26] VITALS: PULSE 88; RESP 16; O2SAT 99
== END 2025-04-24 19:29 | disposition home or self-care (01) ==
PROVIDERS: Emergency Provider Physician Assistant; PCP Family Medicine
DX: S29.012A Strain of muscle and tendon of back wall of thorax, initial encounter (principal); Z72.0 Tobacco use; E78.2 Mixed hyperlipidemia; I10 Essential (primary) hypertension; Z86.73 Personal history of transient ischemic attack (TIA), and cerebral infarction without residual deficits; X58.XXXA Exposure to other specified factors, initial encounter
CPT/HCPCS: 71101; 96372; 99284; J1100; J1885; J2360

== ENCOUNTER → 2025-05-22 08:46 | Outpatient (BNVA) | payer MEDICAID, SELFPAY | PROVIDERS: PCP Family Medicine; Visit Provider Orthopaedic Surgery | DX: Z98.890 Other specified postprocedural states (principal); Z98.1 Arthrodesis status | CPT/HCPCS: 72040; 99024 ==

== ENCOUNTER → 2025-05-23 13:04 | Outpatient (BNVA) | payer MEDICAID, SELFPAY | PROVIDERS: PCP Family Medicine; Visit Provider Student in an Organized Health Care Education/Training Program | DX: M19.019 Primary osteoarthritis, unspecified shoulder (principal); M75.21 Bicipital tendinitis, right shoulder; M75.41 Impingement syndrome of right shoulder | CPT/HCPCS: 99213 ==

== ENCOUNTER → 2025-06-15 11:27 | Outpatient (BNVA) | payer MEDICAID, SELFPAY | PROVIDERS: PCP Family Medicine; Visit Provider Student in an Organized Health Care Education/Training Program | DX: M19.011 Primary osteoarthritis, right shoulder (principal); M75.21 Bicipital tendinitis, right shoulder; M75.41 Impingement syndrome of right shoulder; M75.101 Unspecified rotator cuff tear or rupture of right shoulder, not specified as traumatic; Z71.89 Other specified counseling | CPT/HCPCS: 20610; 77002; J3301; J9999 ==